=== PATIENT | male | born 1990 | race Caucasian/White ===

== ENCOUNTER 2017-08-17 19:43 | Inpatient (IN) | payer SELFPAY ==
[2017-08-17 21:05] VITALS: BMI 26.4
[2017-08-17] MEDS ORDERED: MELATONIN 5 MG TABLETS PO SCH (22:00)
--- NOTE | 2017-08-17 23:43 | HP ---
COWS - Scale Resting Pulse: 0= [place] 80 or Below Sweatin= Chills/Flushing Restless Observation: 5= Unable to Sit Still Pupil Size: 1= Pupils >than Normal Bone or Joint Aches: 4=Acute Joint/Muscle Pain Runny Nose/ Eye Tearin= Nasal Congestion GI Upset > 30mins: 2= Nausea/Diarrhea Tremor Observation: 1= Tremor [place], Not Seen Yawning Observation: 0= None Anxiety or Irritability: 2=Irritable/Anxious Goose Flesh Skin: 0=Smooth Skin COWS Score: 17 CIWA Score - CIWA Score Nausea/Vomitin-No Nausea/No Vomiting Muscle Tremors: 1-None Visible, but [place] Anxiety: 4-Mod. Anxious/Guarded Agitation: 4-Moderately Restless Paroxysmal Sweats: 3 (CHILLS) Orientation: 1-Uncertain about Date Tacttile Disturbances: 0-None Auditory Disturbances: 0-None Visual Disturbances: 0-None Headache: 3-Moderate CIWA-Ar Total Score: 16 Admission ROS S - HPI Chief Complaint: " I NEED TO STOP USING AND TO GET BETTER" Allergies/Adverse Reactions: Allergies Allergy/AdvReac Type Severity Reaction Status Date / Time No Known Allergies Allergy Verified 08/17/17 22:54 History of Present Illness: 27 Y.O. MALE WITH HX/O ALCOHOLISM AND HEROIN HERE FOR DETOX. CLIENT REPORTS THIS IS HIS FIRST TIME IN [facility]. REFERRED BY A FRIEND. DENIES ANY SIGNIFICANT PERIOD OF CLEAN TIME. Exam Limitations: No Limitations - Ebola screening Have you traveled outside of the country in the last 21 days: No (N) Have you had contact with anyone from an Ebola affected area: No Have you been sick,other than usual withdrawal symptoms: No Do you have a fever: No - Review of Systems Constitutional: Chills, Loss of Appetite, Malaise, Night Sweats, Changes in sleep EENT: reports: Nose Congestion Respiratory: reports: No Symptoms reported Cardiac: reports: No Symptoms Reported GI: reports: Diarrhea, Poor Appetite, Poor Fluid Intake, Abdominal cramping : reports: No Symptoms Reported Musculoskeletal: reports: Back Pain Integumentary: reports: No Symptoms Reported Neuro: reports: No Symptoms reported Endocrine: reports: No Symptoms Reported Hematology: reports: No Symptoms Reported Psychiatric: reports: Anxious, Depressed Other Systems: Reviewed and Negative Patient History - Patient Medical History Hx Anemia: No Hx Asthma: No Hx Chronic Obstructive Pulmonary Disease (COPD): No Hx Cancer: No Hx Cardiac Disorders: No Hx Congestive Heart Failure: No Hx Hypertension: No Hx Hypercholesterolemia: No Hx Pacemaker: No HX Cerebrovascular Accident: No Hx Seizures: No Hx Dementia: No Hx Diabetes: No Hx Gastrointestinal Disorders: No Hx Liver Disease: No Hx Genitourinary Disorders: No Hx Sexually Transmitted Disorders: No Hx Renal Disease (ESRD): No Hx Thyroid Disease: No Hx Human Immunodeficiency Virus (HIV): No (Last tested approx. 2 months ago: NEGATIVE.) Hx Hepatitis C: No (Last tested approx. 2 months ago: NEGATIVE.) Hx Depression: No Hx Suicide Attempt: No (PATIENT DENIES CURRENT SI / HI.) Hx Bipolar Disorder: No Hx Schizophrenia: No Other Medical History: ANXIETY DECLINES PSYCH EVAL - Patient Surgical History Past Surgical History: No Hx Neurologic Surgery: No Hx Cataract Extraction: No Hx Cardiac Surgery: No Hx Lung Surgery: No Hx Breast Surgery: No Hx Breast Biopsy: No Hx Abdominal Surgery: No Hx Appendectomy: No Hx Cholecystectomy: No Hx Genitourinary Surgery: No Hx Orthopedic Surgery: No Anesthesia Reaction: No - PPD History Previous Implant?: Yes Documented Results: Negative w/o proof Implanted On Prior [facility] Admission?: No PPD to be Administered?: Yes - Smoking Cessation Smoking history: Current every day smoker Have you smoked in the past 12 months: Yes Aproximately how many cigarettes per day: 20 Cigars Per Day: 0 Hx Chewing Tobacco Use: No Initiated information on smoking cessation: Yes 'Breaking Loose' booklet given: 08/17/17 - Substance & Tx. History Hx Alcohol Use: Yes Hx Substance Use: Yes Substance Use Type: Alcohol, Heroin Hx Substance Use Treatment: No - Substances Abused Heroin Route: Inhalation Frequency: Daily Amount used: 10 BAGS Age of first use: 26 Date of Last Use: 08/17/17 Alcohol Route: Oral Frequency: Daily Amount used: BEER 1 OF 6 PACK Age of first use: 18 Date of Last Use: 08/15/17 Marijuana/Hashish Route: Smoking Frequency: Daily Amount used: 2 GRAMS Age of first use: 18 Date of Last Use: 08/17/17 Family Disease History - Family Disease History Family Disease History: Diabetes: Grandparent, Sister Admission Physical Exam BHS - Vital Signs Vital Signs: Vital Signs - 24 hr 08/17/17 21:03 Temperature 98.7 F Pulse Rate 75 Respiratory 19 Rate Blood Pressure 129/72 - Physical General Appearance: Yes: Mild Distress, Tremorous, Anxious HEENTM: Yes: EOMI, Normocephalic, GERALD, Pharynx Normal, Nasal Congestion Respiratory: Yes: Chest Non-Tender, Lungs Clear, Normal Breath Sounds, No Respiratory Distress, No Accessory Muscle Use Neck: Yes: No masses,lesions,Nodules, Supple, Trachea in good position Breast: Yes: Breast Exam Deferred Cardiology: Yes: Regular Rhythm, Regular Rate, S1, S2 Abdominal: Yes: Normal Bowel Sounds, Non Tender, Flat, Soft Genitourinary: Yes: Within Normal Limits Back: Yes: Normal Inspection Musculoskeletal: Yes: Gait Steady Extremities: Yes: Normal Range of Motion, Non-Tender, Tremors 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: Yes: Alert, Motor Strength 5/5 Integumentary: Yes: Normal Color, Dry, Warm Lymphatic: Yes: Within Normal Limits - Diagnostic (1) Alcohol dependence with uncomplicated withdrawal Current Visit: Yes Status: Acute (2) Opioid dependence with withdrawal Current Visit: Yes Status: Acute (3) Nicotine dependence Current Visit: Yes Status: Chronic Qualifiers: Nicotine product type: cigarettes Substance use status: uncomplicated Qualified Code(s): F17.210 - Nicotine dependence, cigarettes, uncomplicated Cleared for Admission [facility] - Detox or Rehab [facility] Level of Care: Medically Managed Detox Regimen/Protocol: Methadone/Librium [facility] Breath Alcohol Content Breath Alcohol Content: 0 Urine Drug Screen - Results Drug Screen Negative: No Urine Drug Screen Results: THC-Marijuana, OPI-Opiates
[2017-08-17] MEDS ORDERED: MAGNESIUM HYDROX 2400MG/30ML ORAL SUSPENSION 30 ML CUP PO PRN (23:54)
[2017-08-17] MEDS ORDERED: P-EPHED 60MG/TRIPROLIDI 2.5MG TABLET PO PRN (23:54)
[2017-08-17] MEDS ORDERED: MAGNESIUM CITRATE 300 ML BOTTLE PO PRN (23:54)
[2017-08-17] MEDS ORDERED: MENTHOL/PHENOL 1 EACH UD MM PRN (23:54)
[2017-08-17] MEDS ORDERED: MAG HYDROX/AL HYDROX/SIMETH 30 ML UNIT-DOSE CUP PO PRN (23:54)
[2017-08-17] MEDS ORDERED: guaiFENesin/D-METHORPHAN HB 10 ML UNIT-DOSE CUPS PO PRN (23:54)
[2017-08-17] MEDS ORDERED: LOPERAMIDE HCL 2 MG CAPSULE PO PRN (23:54)
[2017-08-17] MEDS ORDERED: NICOTINE POLACRILEX 2 MG GUM BC PRN (23:54)
[2017-08-17] MEDS ORDERED: IBUPROFEN 400 MG TABLET (FP) PO PRN (23:54)
[2017-08-18] MEDS ORDERED: MELATONIN 5 MG TABLETS PO PRN (00:06)
[2017-08-18] MEDS ORDERED: METHADONE HCL 10 MG TABLET (FOR DETOX USE ONLY) PO ONE ×3 (00:07→22:00)
[2017-08-18 00:44] LABS: URINE APPEARANCE CLEAR; URINE BILIRUBIN NEGATIVE (<2.0 mg/dL); URINE BLOOD NEGATIVE (NEGATIVE); URINE COLOR YELLOW; URINE GLUCOSE (UA) NEGATIVE (NEGATIVE); URINE KETONE NEGATIVE (NEGATIVE); URINE LEUK ESTERASE NEGATIVE (NEGATIVE); URINE NITRITE NEGATIVE (NEGATIVE); URINE PROTEIN NEGATIVE (NEGATIVE)
[2017-08-18] MEDS: chlordiazePOXIDE HCL 25 MG CAPSULE PO PRN ×2 (01:01→20:28)
[2017-08-18] MEDS: chlordiazePOXIDE HCL 25 MG CAPSULE PO SCH ×4 (05:17→23:30)
--- NOTE | 2017-08-18 09:06 | EKG ---
Test Reason : Blood Pressure : / mmHG Vent. Rate : 074 BPM Atrial Rate : 074 BPM P-R Int : 176 ms QRS Dur : 094 ms QT Int : 394 ms P-R-T Axes : 067 069 028 degrees QTc Int : 437 ms NORMAL SINUS RHYTHM NORMAL ECG NO PREVIOUS ECGS AVAILABLE Confirmed by NABIL CARROLL MD ([id number]) on 08/18/2017 9:05:52 AM Referred By: Confirmed By:NABIL CARROLL MD
[2017-08-18 10:18] LABS: HEMATOCRIT 42.6 % (35.4-49); HEMOGLOBIN 14.5 GM/dL (11.7-16.9); MCH 29.9 pg (25.7-33.7); MEAN CELL VOLUME 87.8 fl (80-96); MEAN PLT VOLUME 10.7 fl (7.5-11.1); PLATELET COUNT 186 K/MM3 (134-434); RBC 4.85 M/mm3 (4.00-5.60); RDW 13.6 % (11.9-15.9); WHITE BLOOD COUNT 8.7 K/mm3 (4.0-10.0)
[2017-08-18 10:34] LABS: ALBUMIN 3.7 g/dl (3.4-5.0); ALK PHOS 68 U/L (45-117); ANION GAP 10 (8-16); BILIRUBIN,TOTAL 0.6 mg/dL (0.2-1.0); BLOOD UREA NITROGEN 14 mg/dL (7-18); CALCIUM 8.9 mg/dL (8.5-10.1); CHLORIDE 103 mmol/L (98-107); CO2 28 mmol/L (21-32); CREATININE 0.8 mg/dL (0.7-1.3); GLUCOSE,RANDOM 80 mg/dL (74-106); POTASSIUM 4.1 mmol/L (3.5-5.1); SGOT/AST 12 U/L (15-37); SGPT/ALT 22 U/L (12-78); SODIUM 141 mmol/L (136-145); TOT PROT 7.1 g/dl (6.4-8.2)
--- NOTE | 2017-08-18 10:40 | PN ---
S CIWA - CIWA Score Nausea/Vomitin Muscle Tremors: 3 Anxiety: 3 Agitation: 3 Paroxysmal Sweats: 1-Minimal Palms Moist Orientation: 0-Oriented Tacttile Disturbances: 1-Very Mild Itch/Numbness Auditory Disturbances: 1-Very Mild Visual Disturbances: 0-None Headache: 2-Mild CIWA-Ar Total Score: 17 BHS COWS - Scale Resting Pulse: 1= [place] 81-100 Sweatin= Chills/Flushing Restless Observation: 3= Extraneous Movement Pupil Size: 1= Pupils >than Normal Bone or Joint Aches: 2= Severe Diffuse Aches Runny Nose/ Eye Tearin= Nasal Congestion GI Upset > 30mins: 2= Nausea/Diarrhea Tremor Observation of Outstretched Hands: 2= Slight Tremor Visible Yawning Observation: 1= 1-2x During Session Anxiety or Irritability: 2=Irritable/Anxious Goose Flesh Skin: 0=Smooth Skin COWS Score: 16 BHS Progress Note (SOAP) Subjective: ALERT,IRRITABLE.ANXIOUS,INTERRUPTED SLEEP,TREMOR Objective: 08/18/17 10:38 Vital Signs Temperature 98.1 F 08/18/17 09:45 Pulse Rate 92 H 08/18/17 09:45 Respiratory Rate 16 08/18/17 09:45 Blood Pressure 116/72 08/18/17 09:45 O2 Sat by Pulse Oximetry (%) EKG NSR,NORMAL ECG 08/18/17 10:39 Laboratory Last Values WBC 8.7 K/mm3 (4.0-10.0) 08/18/17 07:00 RBC 4.85 M/mm3 (4.00-5.60) 08/18/17 07:00 Hgb 14.5 GM/dL (11.7-16.9) 08/18/17 07:00 Hct 42.6 % (35.4-49) 08/18/17 07:00 MCV 87.8 fl (80-96) 08/18/17 07:00 MCH 29.9 pg (25.7-33.7) 08/18/17 07:00 MCHC 34.0 g/dl (32.0-35.9) 08/18/17 07:00 RDW 13.6 % (11.9-15.9) 08/18/17 07:00 Plt Count 186 K/MM3 (134-434) 08/18/17 07:00 MPV 10.7 fl (7.5-11.1) 08/18/17 07:00 Sodium 141 mmol/L (136-145) 08/18/17 07:00 Potassium 4.1 mmol/L (3.5-5.1) 08/18/17 07:00 Chloride 103 mmol/L (98-107) 08/18/17 07:00 Carbon Dioxide 28 mmol/L (21-32) 08/18/17 07:00 Anion Gap 10 (8-16) 08/18/17 07:00 BUN 14 mg/dL (7-18) D 08/18/17 07:00 Creatinine 0.8 mg/dL (0.7-1.3) 08/18/17 07:00 Creat Clearance w eGFR > 60 (>60) 08/18/17 07:00 Random Glucose 80 mg/dL (74-106) 08/18/17 07:00 Calcium 8.9 mg/dL (8.5-10.1) 08/18/17 07:00 Total Bilirubin 0.6 mg/dL (0.2-1.0) D 08/18/17 07:00 AST 12 U/L (15-37) L 08/18/17 07:00 ALT 22 U/L (12-78) 08/18/17 07:00 Total Protein 7.1 g/dl (6.4-8.2) 08/18/17 07:00 Albumin 3.7 g/dl (3.4-5.0) 08/18/17 07:00 Urine Color Yellow 08/17/17 23:50 Urine Appearance Clear 08/17/17 23:50 Urine pH 5.0 (5.0-8.0) D 08/17/17 23:50 Ur Specific [place] 1.025 (1.001-1.035) 08/17/17 23:50 Urine Protein Negative (NEGATIVE) 08/17/17 23:50 Urine Glucose (UA) Negative (NEGATIVE) 08/17/17 23:50 Urine Ketones Negative (NEGATIVE) 08/17/17 23:50 Urine Blood Negative (NEGATIVE) 08/17/17 23:50 Urine Nitrite Negative (NEGATIVE) 08/17/17 23:50 Urine Bilirubin Negative (<2.0 mg/dL) 08/17/17 23:50 Urine Urobilinogen 2.0 mg/dL (0.2-1.0) 08/17/17 23:50 Ur Leukocyte Esterase Negative (NEGATIVE) 08/17/17 23:50 08/18/17 10:39 RPR HIV PENDING Assessment: 08/18/17 10:39 WITHDRAWAL SYMPTOM Plan: CONTINUE DETOX
[2017-08-18] MEDS: PRENATAL VITAMINS W/ FOLIC ACID TABLET (FP) PO SCH (10:41)
[2017-08-18] MEDS: NICOTINE 14 MG/24 HOURS TOPICAL PATCH TD SCH (10:42)
[2017-08-18] MEDS ORDERED: PROPOFOL 20 ML ONE (11:04)
[2017-08-18] MEDS ORDERED: DEXAMETHASONE SOD PHOSPHATE 4 MG/1 ML VIAL ONE (11:05)
[2017-08-18] MEDS ORDERED: MIDAZOLAM HCL 2 MG/2 ML SINGLE DOSE VIAL ONE (11:05)
[2017-08-18] MEDS ORDERED: TRIMETHOBENZAMIDE HCL 200MG/2ML INJ IM PRN (11:25)
[2017-08-18] MEDS ORDERED: ONDANSETRON *ODT* 4 MG TABLET SL PRN (12:28)
[2017-08-18] MEDS: ACETAMINOPHEN 325 MG TABLET (FP) PO PRN (22:36)
[2017-08-18] MEDS: THIAMINE HCL 100 MG TABLET (FP) PO SCH (22:55)
[2017-08-19] MEDS: chlordiazePOXIDE HCL 25 MG CAPSULE PO SCH ×4 (05:23→22:33)
[2017-08-19] MEDS ORDERED: METHADONE HCL 5 MG TABLET (FOR DETOX USE ONLY) PO SCH (10:00)
[2017-08-19] MEDS: cloNIDine HCL 0.1 MG TABLET PO SCH ×2 (10:30→22:34)
[2017-08-19] MEDS: PRENATAL VITAMINS W/ FOLIC ACID TABLET (FP) PO SCH (10:30)
[2017-08-19] MEDS: CYCLOBENZAPRINE HCL 10 MG TABLET (FP) PO PRN (10:30)
[2017-08-19] MEDS: NICOTINE 14 MG/24 HOURS TOPICAL PATCH TD SCH (10:31)
--- NOTE | 2017-08-19 11:23 | PN ---
S CIWA - CIWA Score Nausea/Vomitin Muscle Tremors: 3 Anxiety: 3 Agitation: 3 Paroxysmal Sweats: 1-Minimal Palms Moist Orientation: 0-Oriented Tacttile Disturbances: 1-Very Mild Itch/Numbness Auditory Disturbances: 1-Very Mild Visual Disturbances: 0-None Headache: 2-Mild CIWA-Ar Total Score: 17 BHS Progress Note (SOAP) Subjective: ALERT,IRRITABLE,ANXIOUS,INTERRUPTED SLEEP,TREMOR,PAIN IN THE BODY AND BACK Objective: 08/19/17 11:21 Vital Signs Temperature 98.1 F 08/19/17 09:58 Pulse Rate 92 H 08/19/17 09:58 Respiratory Rate 18 08/19/17 09:58 Blood Pressure 135/89 08/19/17 09:58 O2 Sat by Pulse Oximetry (%) EKG NSR,NORMAL ECG, Laboratory Last Values WBC 8.7 K/mm3 (4.0-10.0) 08/18/17 07:00 RBC 4.85 M/mm3 (4.00-5.60) 08/18/17 07:00 Hgb 14.5 GM/dL (11.7-16.9) 08/18/17 07:00 Hct 42.6 % (35.4-49) 08/18/17 07:00 MCV 87.8 fl (80-96) 08/18/17 07:00 MCH 29.9 pg (25.7-33.7) 08/18/17 07:00 MCHC 34.0 g/dl (32.0-35.9) 08/18/17 07:00 RDW 13.6 % (11.9-15.9) 08/18/17 07:00 Plt Count 186 K/MM3 (134-434) 08/18/17 07:00 MPV 10.7 fl (7.5-11.1) 08/18/17 07:00 Sodium 141 mmol/L (136-145) 08/18/17 07:00 Potassium 4.1 mmol/L (3.5-5.1) 08/18/17 07:00 Chloride 103 mmol/L (98-107) 08/18/17 07:00 Carbon Dioxide 28 mmol/L (21-32) 08/18/17 07:00 Anion Gap 10 (8-16) 08/18/17 07:00 BUN 14 mg/dL (7-18) D 08/18/17 07:00 Creatinine 0.8 mg/dL (0.7-1.3) 08/18/17 07:00 Creat Clearance w eGFR > 60 (>60) 08/18/17 07:00 Random Glucose 80 mg/dL (74-106) 08/18/17 07:00 Calcium 8.9 mg/dL (8.5-10.1) 08/18/17 07:00 Total Bilirubin 0.6 mg/dL (0.2-1.0) D 08/18/17 07:00 AST 12 U/L (15-37) L 08/18/17 07:00 ALT 22 U/L (12-78) 08/18/17 07:00 Alkaline Phosphatase 68 U/L (45-117) 08/18/17 07:00 Total Protein 7.1 g/dl (6.4-8.2) 08/18/17 07:00 Albumin 3.7 g/dl (3.4-5.0) 08/18/17 07:00 Urine Color Yellow 08/17/17 23:50 Urine Appearance Clear 08/17/17 23:50 Urine pH 5.0 (5.0-8.0) D 08/17/17 23:50 Ur Specific [place] 1.025 (1.001-1.035) 08/17/17 23:50 Urine Protein Negative (NEGATIVE) 08/17/17 23:50 Urine Glucose (UA) Negative (NEGATIVE) 08/17/17 23:50 Urine Ketones Negative (NEGATIVE) 08/17/17 23:50 Urine Blood Negative (NEGATIVE) 08/17/17 23:50 Urine Nitrite Negative (NEGATIVE) 08/17/17 23:50 Urine Bilirubin Negative (<2.0 mg/dL) 08/17/17 23:50 Urine Urobilinogen 2.0 mg/dL (0.2-1.0) 08/17/17 23:50 Ur Leukocyte Esterase Negative (NEGATIVE) 08/17/17 23:50 RPR Titer Nonreactive (NONREACTIVE) 08/18/17 07:00 HIV 1&2 Antibody Screen Negative 08/18/17 07:00 HIV P24 Antigen Negative 08/18/17 07:00 Assessment: 08/19/17 11:22 WITHDRAWAL SYMPTOM Plan: CONTINUE DETOX,ENSURE PLUS 120 MLS PO BID AND GINGERALE TID WITH EACH MEAL
--- NOTE | 2017-08-19 14:03 | CONSULT ---
[facility] Psychiatric Consult - Data Date of interview: 08/19/17 Admission source: [facility] Identifying data: Pt. is a 27 year old single male, Father of two, unemployed, and currently living with mother. This is one of multiple admissions for patient. Pt. admitted to for alcohol, cannabis and heroin. Substance Abuse History: Following information confirmed with Mr. Keys: - Smoking Cessation. Smoking history: Current every day smoker. Have you smoked in the past 12 months: Yes. Aproximately how many cigarettes per day: 20. Cigars Per Day: 0. Hx Chewing Tobacco Use: No. Initiated information on smoking cessation: Yes. - Substance & Tx. History. Hx Alcohol Use: Yes. Hx Substance Use: Yes. Substance Use Type: Alcohol, Heroin. Hx Substance Use Treatment: No. - Substances Abused. Heroin. Route: Inhalation. Frequency : Daily. Amount used: 10 BAGS. Age of first use: 26. Date of Last Use: . Alcohol. Route: Oral. Frequency: Daily. Amount used: BEER 1 OF 6 PACK. Age of first use: 18. Date of Last Use: 08/15/17. Marijuana/ Hashish. Route: Smoking. Frequency: Daily. Amount used: 2 GRAMS. Age of first use: 18. Date of Last Use: 08/17/17 Psychiatric History: Pt. denies h/o psychiatric hospitalizations, suicide attempt, and outpatient care. Physical/Sexual Abuse/Trauma History: Denies. Mental Status Exam - Mental Status Exam Alert and Oriented to: Time, Place, Person Cognitive Function: Good Patient Appearance: Unkempt Mood: Euthymic Affect: Appropriate Patient Behavior: Fatigued (Pt. reports poor sleep.), Appropriate, Cooperative Speech Pattern: Appropriate Voice Loudness: Normal Thought Process: Goal Oriented Thought Disorder: Not Present Hallucinations: Denies Suicidal Ideation: Denies Homicidal Ideation: Denies Insight/Judgement: Poor Sleep: Poorly Appetite: Fair Muscle strength/Tone: Normal Gait/Station: Normal Psychiatric Findings - Problem List ([place] 1, 2,3) (1) Insomnia Current Visit: Yes Status: Acute (2) Alcohol dependence with uncomplicated withdrawal Current Visit: Yes Status: Acute (3) Cannabis dependence, uncomplicated Current Visit: Yes Status: Acute (4) Cocaine dependence, uncomplicated Current Visit: Yes Status: Acute (5) Nicotine dependence Current Visit: Yes Status: Chronic Qualifiers: Nicotine product type: cigarettes Substance use status: uncomplicated Qualified Code(s): F17.210 - Nicotine dependence, cigarettes, uncomplicated (6) Opioid dependence with withdrawal Current Visit: Yes Status: Acute - Initial Treatment Plan Initial Treatment Plan: Psychoeducation provided. Detoxification provided. Ambien 10mg qhs prn ordered for insomnia. Benefits and side effects discussed. Pt made aware of the risk of parasomnia. Verbal consent given. Will continue to monitor.
[2017-08-19] MEDS: chlordiazePOXIDE HCL 25 MG CAPSULE PO PRN (18:31)
[2017-08-19] MEDS: THIAMINE HCL 100 MG TABLET (FP) PO SCH (22:33)
[2017-08-19] MEDS: ZOLPIDEM TARTRATE 10 MG TABLET (PARK CARE ONLY) PO PRN (22:35)
[2017-08-20] MEDS: chlordiazePOXIDE 5 MG CAPSULE PO SCH ×4 (05:47→22:40)
[2017-08-20] MEDS ORDERED: METHADONE HCL 5 MG TABLET (FOR DETOX USE ONLY) PO SCH (10:00)
--- NOTE | 2017-08-20 10:18 | PN ---
BHS Progress Note (SOAP) Subjective: ALERT,IRRITABLE,ANXIOUS,INTERRUPTED SLEEP,PAIN IN THE BODY AND BACK Objective: 08/20/17 10:16 Vital Signs Temperature 97.5 F L 08/20/17 06:33 Pulse Rate 68 08/20/17 06:33 Respiratory Rate 16 08/20/17 06:33 Blood Pressure 113/68 08/20/17 06:33 O2 Sat by Pulse Oximetry (%) Assessment: 08/20/17 10:17 WITHDRAWAL SYMPTOM BUT LESS Plan: CONTINUE DETOX,MEDICATION ADJUST,
[2017-08-20] MEDS: PRENATAL VITAMINS W/ FOLIC ACID TABLET (FP) PO SCH (11:15)
[2017-08-20] MEDS: CYCLOBENZAPRINE HCL 10 MG TABLET (FP) PO PRN (11:15)
[2017-08-20] MEDS: NICOTINE 14 MG/24 HOURS TOPICAL PATCH TD SCH (11:18)
[2017-08-20] MEDS: cloNIDine HCL 0.1 MG TABLET PO SCH ×2 (11:19→22:40)
[2017-08-20 21:40] VITALS: TEMP 97.7
[2017-08-20] MEDS: ZOLPIDEM TARTRATE 10 MG TABLET (PARK CARE ONLY) PO PRN (22:38)
[2017-08-20] MEDS: THIAMINE HCL 100 MG TABLET (FP) PO SCH (22:38)
[2017-08-21] MEDS ORDERED: chlordiazePOXIDE HCL 10 MG CAPSULE PO SCH (05:00)
[2017-08-21] MEDS: ACETAMINOPHEN 325 MG TABLET (FP) PO PRN (08:46)
--- NOTE | 2017-08-21 09:05 | PN ---
BHS Progress Note (SOAP) Subjective: ALERT,INTERRUPTED SLEEP Objective: 08/21/17 09:04 Vital Signs Temperature 97.7 F 08/21/17 06:00 Pulse Rate 72 08/21/17 06:00 Respiratory Rate 18 08/21/17 06:00 Blood Pressure 105/59 08/21/17 06:00 O2 Sat by Pulse Oximetry (%) Assessment: 08/21/17 09:04 WITHDRAWAL SYMPTOM Plan: CONTINUE DETOX
--- NOTE | 2017-08-21 09:10 | DS ---
[facility] Detox Discharge Summary Admission Date: 08/17/17 Discharge Date: 08/21/17 - History Present History: Alcohol Dependence, Cannabis Dependence, Cocaine Dependence, Opioid Dependence Additional Comments: PATIENT DID NOT WANT TO COMPLETE TREATMENT,SIGNED RELEASE AMA,STATED HAS TO GO TO OF HIS AUNT,SEEN BY COUNSELOR,SIGNED RELEASE AMA,FOLLOW UP WITH AFTER CARE PROGRAM ARRANGEMENT Pertinent Past History: INSOMNIA - Physical Exam Results Vital Signs: Vital Signs Temperature 97.7 F 08/21/17 06:00 Pulse Rate 72 08/21/17 06:00 Respiratory Rate 18 08/21/17 06:00 Blood Pressure 105/59 08/21/17 06:00 O2 Sat by Pulse Oximetry (%) Pertinent Admission Physical Exam Findings: WITHDRAWAL SYMPTOM AND SIGNS Laboratory Last Values WBC 8.7 K/mm3 (4.0-10.0) 08/18/17 07:00 RBC 4.85 M/mm3 (4.00-5.60) 08/18/17 07:00 Hgb 14.5 GM/dL (11.7-16.9) 08/18/17 07:00 Hct 42.6 % (35.4-49) 08/18/17 07:00 MCV 87.8 fl (80-96) 08/18/17 07:00 MCH 29.9 pg (25.7-33.7) 08/18/17 07:00 MCHC 34.0 g/dl (32.0-35.9) 08/18/17 07:00 RDW 13.6 % (11.9-15.9) 08/18/17 07:00 Plt Count 186 K/MM3 (134-434) 08/18/17 07:00 MPV 10.7 fl (7.5-11.1) 08/18/17 07:00 Sodium 141 mmol/L (136-145) 08/18/17 07:00 Potassium 4.1 mmol/L (3.5-5.1) 08/18/17 07:00 Chloride 103 mmol/L (98-107) 08/18/17 07:00 Carbon Dioxide 28 mmol/L (21-32) 08/18/17 07:00 Anion Gap 10 (8-16) 08/18/17 07:00 BUN 14 mg/dL (7-18) D 08/18/17 07:00 Creatinine 0.8 mg/dL (0.7-1.3) 08/18/17 07:00 Creat Clearance w eGFR > 60 (>60) 08/18/17 07:00 Random Glucose 80 mg/dL (74-106) 08/18/17 07:00 Calcium 8.9 mg/dL (8.5-10.1) 08/18/17 07:00 Total Bilirubin 0.6 mg/dL (0.2-1.0) D 08/18/17 07:00 AST 12 U/L (15-37) L 08/18/17 07:00 ALT 22 U/L (12-78) 08/18/17 07:00 Alkaline Phosphatase 68 U/L (45-117) 08/18/17 07:00 Total Protein 7.1 g/dl (6.4-8.2) 08/18/17 07:00 Albumin 3.7 g/dl (3.4-5.0) 08/18/17 07:00 Urine Color Yellow 08/17/17 23:50 Urine Appearance Clear 08/17/17 23:50 Urine pH 5.0 (5.0-8.0) D 08/17/17 23:50 Ur Specific [place] 1.025 (1.001-1.035) 08/17/17 23:50 Urine Protein Negative (NEGATIVE) 08/17/17 23:50 Urine Glucose (UA) Negative (NEGATIVE) 08/17/17 23:50 Urine Ketones Negative (NEGATIVE) 08/17/17 23:50 Urine Blood Negative (NEGATIVE) 08/17/17 23:50 Urine Nitrite Negative (NEGATIVE) 08/17/17 23:50 Urine Bilirubin Negative (<2.0 mg/dL) 08/17/17 23:50 Urine Urobilinogen 2.0 mg/dL (0.2-1.0) 08/17/17 23:50 Ur Leukocyte Esterase Negative (NEGATIVE) 08/17/17 23:50 RPR Titer Nonreactive (NONREACTIVE) 08/18/17 07:00 HIV 1&2 Antibody Screen Negative 08/18/17 07:00 HIV P24 Antigen Negative 08/18/17 07:00 Vital Signs Temperature 97.7 F 08/21/17 06:00 Pulse Rate 72 08/21/17 06:00 Respiratory Rate 18 08/21/17 06:00 Blood Pressure 105/59 08/21/17 06:00 O2 Sat by Pulse Oximetry (%) - Treatment Patient has Accepted a Rehab Referral to: DECLINED - Medication Discharge Medications: Ambulatory Orders NK [No Known Home Medication] 03/20/17 - Diagnosis (1) Opioid dependence with withdrawal Current Visit: Yes Status: Acute (2) Alcohol dependence with uncomplicated withdrawal Current Visit: Yes Status: Acute (3) Cannabis dependence, uncomplicated Current Visit: Yes Status: Acute (4) Cocaine dependence, uncomplicated Current Visit: Yes Status: Acute (5) Nicotine dependence Current Visit: Yes Status: Chronic Qualifiers: Nicotine product type: cigarettes Substance use status: uncomplicated Qualified Code(s): F17.210 - Nicotine dependence, cigarettes, uncomplicated (6) Insomnia Current Visit: Yes Status: Acute - AMA Did Patient Leave Against Medical Advice: Yes
[2017-08-21] MEDS ORDERED: METHADONE HCL 10 MG TABLET (FOR DETOX USE ONLY) PO ONE (10:00)
[2017-08-21 11:05] VITALS: BP 103/69; PULSE 98
[2017-08-22] MEDS ORDERED: METHADONE HCL 5 MG TABLET (FOR DETOX USE ONLY) PO ONE (06:00)
[2017-08-22] MEDS ORDERED: METHADONE HCL 10 MG TABLET (FOR DETOX USE ONLY) PO SCH (10:00)
[2017-08-23] MEDS ORDERED: METHADONE HCL 10 MG TABLET (FOR DETOX USE ONLY) PO SCH (06:00)
== END 2017-08-21 09:24 | disposition left against medical advice (07) | DRG 770 ==
LOC: YASAS 19:43 → Y6N 23:21
PROVIDERS: ADMIT Internal Medicine; ATTEND Internal Medicine
PROC: HZ2ZZZZ Detoxification Services for Substance Abuse Treatment (ICD-10-PCS; principal; 2017-08-17)
DX: F11.23 Opioid dependence with withdrawal (principal); F10.230 Alcohol dependence with withdrawal, uncomplicated; F14.20 Cocaine dependence, uncomplicated; F12.20 Cannabis dependence, uncomplicated; F17.210 Nicotine dependence, cigarettes, uncomplicated; G47.00 Insomnia, unspecified
CPT/HCPCS: 36415; 80053; 81003; 85027; 86593; 87389; 93005; 93010; J0735; Q0162

== ENCOUNTER 2018-04-22 22:01 | Inpatient (IN) | payer OTHER ==
[~2018-04-22 22:01] MED LIST: MELATONIN 5 MG TABLETS PO PRN; METHADONE HCL 10 MG TABLET (FOR DETOX USE ONLY) PO ONE
[2018-04-22 22:27] VITALS: BMI 25.8
--- NOTE | 2018-04-22 23:39 | HP ---
COWS - Scale Resting Pulse: 1= [place] 81-100 Sweatin=Flushed/Facial Moisture Restless Observation: 1= Difficult to Sit Still Pupil Size: 0= Normal to Room Light Bone or Joint Aches: 4=Acute Joint/Muscle Pain Runny Nose/ Eye Tearin= Runny Nose/Eyes GI Upset > 30mins: 2= Nausea/Diarrhea (X 2) Tremor Observation: 4= Gross Tremor/Twitching Yawning Observation: 0= None Anxiety or Irritability: 2=Irritable/Anxious Goose Flesh Skin: 0=Smooth Skin COWS Score: 18 CIWA Score Nausea/Vomitin (VOMITING X 2) Muscle Tremors: 4-Moderate,w/Arms Extend Anxiety: 1-Mildly Anxious Agitation: 3 Paroxysmal Sweats: 1-Minimal Palms Moist Orientation: 0-Oriented Tacttile Disturbances: 0-None Auditory Disturbances: 3-Moderate Harsh/Frighten Visual Disturbances: 0-None Headache: 4-Moderately Severe CIWA-Ar Total Score: 19 - Admission Criteria OASAS Guidelines: Admission for Medically Managed Detox: Requires at least one of the followin. CIWA greater than 12 2. Seizures within the past 24 hours 3. Delirium tremens within the past 24 hours 4. Hallucinations within the past 24 hours 5. Acute intervention needed for co occurring medical disorder 6. Acute intervention needed for co occurring psychiatric disorder 7. Severe withdrawal that cannot be handled at a lower level of care (continued vomiting, continued diarrhea, abnormal vital signs) requiring intravenous medication and/or fluids 8. Admission ROS [facility] Allergies/Adverse Reactions: Allergies Allergy/AdvReac Type Severity Reaction Status Date / Time No Known Allergies Allergy Verified 04/23/18 02:53 History of Present Illness: 27 YEARS OLD MALE WITH EIGHT YEARS OF ALCOHOL AND HEROIN DEPENDENCE IS SEEKING ADMISSION TO DETOX. PATIENT HAS BEEN IN PREVIOUS DETOX AND REPORTS 2 YEARS PERIOD OF SOBRIETY. HE DENIES PAST MEDICAL HISTORY, SUICIDE ATTEMPT AND SUICIDAL IDEATION AT THIS TIME - Ebola screening Have you traveled outside of the country in the last 21 days: No (N) Have you had contact with anyone from an Ebola affected area: No Have you been sick,other than usual withdrawal symptoms: No Do you have a fever: No - Review of Systems Constitutional: Chills, Loss of Appetite, Night Sweats, Weakness EENT: reports: Cataracts, Nose Congestion Respiratory: reports: No Symptoms reported Cardiac: reports: No Symptoms Reported GI: reports: No Symptoms Reported : reports: No Symptoms Reported Musculoskeletal: reports: Back Pain, Muscle Pain Integumentary: reports: Dryness Neuro: reports: Tremors Hematology: reports: No Symptoms Reported Psychiatric: reports: No Sypmtoms Reported, Judgement Intact, Orientated x3 Other Systems: Reviewed and Negative Patient History - Patient Medical History Hx Anemia: No Hx Asthma: No Hx Chronic Obstructive Pulmonary Disease (COPD): No Hx Cancer: No Hx Cardiac Disorders: No Hx Congestive Heart Failure: No Hx Hypertension: No Hx Hypercholesterolemia: No Hx Pacemaker: No HX Cerebrovascular Accident: No Hx Seizures: No Hx Dementia: No Hx Diabetes: No Hx Gastrointestinal Disorders: No Hx Liver Disease: No Hx Genitourinary Disorders: No Hx Sexually Transmitted Disorders: No Hx Renal Disease (ESRD): No Hx Thyroid Disease: No Hx Human Immunodeficiency Virus (HIV): No (Last tested approx. 2 months ago: NEGATIVE.) Hx Hepatitis C: No (Last tested approx. 2 months ago: NEGATIVE.) Hx Depression: No Hx Suicide Attempt: No (PATIENT DENIES CURRENT SI / HI.) Hx Bipolar Disorder: No Hx Schizophrenia: No - Patient Surgical History Past Surgical History: No Hx Neurologic Surgery: No Hx Cataract Extraction: No Hx Cardiac Surgery: No Hx Lung Surgery: No Hx Breast Surgery: No Hx Breast Biopsy: No Hx Abdominal Surgery: No Hx Appendectomy: No Hx Cholecystectomy: No Hx Genitourinary Surgery: No Hx Orthopedic Surgery: No Anesthesia Reaction: No - PPD History Date: 08/20/17 - Smoking Cessation Smoking history: Current every day smoker Have you smoked in the past 12 months: Yes Aproximately how many cigarettes per day: 20 Cigars Per Day: 0 Hx Chewing Tobacco Use: No Initiated information on smoking cessation: Yes 'Breaking Loose' booklet given: 04/22/18 Family Disease History - Family Disease History Family Disease History: Diabetes: Grandparent, Sister Admission Physical Exam BHS - Vital Signs Vital Signs: Vital Signs - 24 hr 04/22/18 22:24 Temperature 96.9 F L Pulse Rate 96 H Respiratory 18 Rate Blood Pressure 133/83 - Physical General Appearance: Yes: Moderate Distress, Alcohol on Breath, Tremorous, Sweating, Anxious HEENTM: Yes: EOMI, Normal ENT Inspection, Normocephalic, Normal Voice, GERALD Respiratory: Yes: Lungs Clear, Normal Breath Sounds, No Respiratory Distress Neck: Yes: Supple Breast: Yes: Breast Exam Deferred Cardiology: Yes: Regular Rhythm, Regular Rate Abdominal: Yes: Normal Bowel Sounds Genitourinary: Yes: Within Normal Limits Back: Yes: CVA Tenderness (L) Musculoskeletal: Yes: Within Normal Limits Extremities: Yes: Tremors 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: Yes: Alert, Normal Mood/Affect Integumentary: Yes: Within Normal Limits Lymphatic: Yes: Within Normal Limits - Diagnostic (1) Alcohol dependence with uncomplicated withdrawal Current Visit: Yes Status: Acute (2) Nicotine dependence Current Visit: Yes Status: Chronic Qualifiers: Nicotine product type: cigarettes Substance use status: uncomplicated Qualified Code(s): F17.210 - Nicotine dependence, cigarettes, uncomplicated (3) Opioid dependence with withdrawal Current Visit: Yes Status: Acute (4) Cannabis dependence, uncomplicated Current Visit: Yes Status: Chronic Cleared for Admission [facility] - Detox or Rehab [facility] Level of Care: Medically Managed Detox Regimen/Protocol: Methadone/Librium S Breath Alcohol Content Breath Alcohol Content: 0 Urine Drug Screen - Results Drug Screen Negative: No Urine Drug Screen Results: THC-Marijuana, OPI-Opiates, FEN-Fentanyl
[2018-04-22] MEDS ORDERED: guaiFENesin/D-METHORPHAN HB 10 ML UNIT-DOSE CUPS PO PRN (23:44)
[2018-04-22] MEDS ORDERED: MAG HYDROX/AL HYDROX/SIMETH 30 ML UNIT-DOSE CUP PO PRN (23:44)
[2018-04-22] MEDS ORDERED: NICOTINE POLACRILEX 2 MG GUM BC PRN (23:44)
[2018-04-22] MEDS ORDERED: LOPERAMIDE HCL 2 MG CAPSULE PO PRN (23:44)
[2018-04-22] MEDS ORDERED: METHADONE HCL 10 MG TABLET (FOR DETOX USE ONLY) PO ONE (23:44)
[2018-04-22] MEDS ORDERED: P-EPHED 60MG/TRIPROLIDI 2.5MG TABLET PO PRN (23:44)
[2018-04-22] MEDS ORDERED: MAGNESIUM CITRATE 300 ML BOTTLE PO PRN (23:44)
[2018-04-22] MEDS ORDERED: ACETAMINOPHEN 325 MG TABLET (FP) PO PRN (23:44)
[2018-04-22] MEDS ORDERED: chlordiazePOXIDE HCL 25 MG CAPSULE PO ONE (23:44)
[2018-04-22] MEDS ORDERED: chlordiazePOXIDE HCL 25 MG CAPSULE PO PRN (23:44)
[2018-04-22] MEDS ORDERED: MENTHOL/PHENOL 1 EACH UD MM PRN (23:44)
[2018-04-22] MEDS ORDERED: MAGNESIUM HYDROX 2400MG/30ML ORAL SUSPENSION 30 ML CUP PO PRN (23:44)
[2018-04-22] MEDS ORDERED: IBUPROFEN 400 MG TABLET (FP) PO PRN (23:44)
--- NOTE | 2018-04-22 23:50 | HP ---
COWS - Scale Resting Pulse: 1= [place] 81-100 Sweatin=Flushed/Facial Moisture Restless Observation: 1= Difficult to Sit Still Pupil Size: 0= Normal to Room Light Bone or Joint Aches: 4=Acute Joint/Muscle Pain Runny Nose/ Eye Tearin= Runny Nose/Eyes GI Upset > 30mins: 2= Nausea/Diarrhea (X 2) Tremor Observation: 4= Gross Tremor/Twitching Yawning Observation: 0= None Anxiety or Irritability: 2=Irritable/Anxious Goose Flesh Skin: 0=Smooth Skin COWS Score: 18 CIWA Score Nausea/Vomitin (VOMITING X 2) Muscle Tremors: 4-Moderate,w/Arms Extend Anxiety: 1-Mildly Anxious Agitation: 3 Paroxysmal Sweats: 1-Minimal Palms Moist Orientation: 0-Oriented Tacttile Disturbances: 0-None Auditory Disturbances: 3-Moderate Harsh/Frighten Visual Disturbances: 0-None Headache: 4-Moderately Severe CIWA-Ar Total Score: 19 - Admission Criteria OASAS Guidelines: Admission for Medically Managed Detox: Requires at least one of the followin. CIWA greater than 12 2. Seizures within the past 24 hours 3. Delirium tremens within the past 24 hours 4. Hallucinations within the past 24 hours 5. Acute intervention needed for co occurring medical disorder 6. Acute intervention needed for co occurring psychiatric disorder 7. Severe withdrawal that cannot be handled at a lower level of care (continued vomiting, continued diarrhea, abnormal vital signs) requiring intravenous medication and/or fluids 8. Admission ROS [facility] Allergies/Adverse Reactions: Allergies Allergy/AdvReac Type Severity Reaction Status Date / Time No Known Allergies Allergy Verified 12/22/17 23:07 - Ebola screening Have you traveled outside of the country in the last 21 days: No (N) Have you had contact with anyone from an Ebola affected area: No Have you been sick,other than usual withdrawal symptoms: No Do you have a fever: No Patient History - Patient Medical History Hx Anemia: No Hx Asthma: No Hx Chronic Obstructive Pulmonary Disease (COPD): No Hx Cancer: No Hx Cardiac Disorders: No Hx Congestive Heart Failure: No Hx Hypertension: No Hx Hypercholesterolemia: No Hx Pacemaker: No HX Cerebrovascular Accident: No Hx Seizures: No Hx Dementia: No Hx Diabetes: No Hx Gastrointestinal Disorders: No Hx Liver Disease: No Hx Genitourinary Disorders: No Hx Sexually Transmitted Disorders: No Hx Renal Disease (ESRD): No Hx Thyroid Disease: No Hx Human Immunodeficiency Virus (HIV): No (Last tested approx. 2 months ago: NEGATIVE.) Hx Hepatitis C: No (Last tested approx. 2 months ago: NEGATIVE.) Hx Depression: No Hx Suicide Attempt: No (PATIENT DENIES CURRENT SI / HI.) Hx Bipolar Disorder: No Hx Schizophrenia: No - Patient Surgical History Past Surgical History: No Hx Neurologic Surgery: No Hx Cataract Extraction: No Hx Cardiac Surgery: No Hx Lung Surgery: No Hx Breast Surgery: No Hx Breast Biopsy: No Hx Abdominal Surgery: No Hx Appendectomy: No Hx Cholecystectomy: No Hx Genitourinary Surgery: No Hx Orthopedic Surgery: No Anesthesia Reaction: No - PPD History Date: 08/20/17 - Smoking Cessation Smoking history: Current every day smoker Have you smoked in the past 12 months: Yes Aproximately how many cigarettes per day: 20 Cigars Per Day: 0 Hx Chewing Tobacco Use: No Family Disease History - Family Disease History Family Disease History: Diabetes: Grandparent, Sister Admission Physical Exam BHS - Vital Signs Vital Signs: Vital Signs - 24 hr 04/22/18 22:24 Temperature 96.9 F L Pulse Rate 96 H Respiratory 18 Rate Blood Pressure 133/83 - Diagnostic (1) Alcohol dependence with uncomplicated withdrawal Current Visit: Yes Status: Chronic (2) Nicotine dependence Current Visit: Yes Status: Chronic Qualifiers: Nicotine product type: cigarettes Substance use status: uncomplicated Qualified Code(s): F17.210 - Nicotine dependence, cigarettes, uncomplicated (3) Opioid dependence with withdrawal Current Visit: Yes Status: Acute (4) Cannabis dependence, uncomplicated Current Visit: Yes Status: Chronic BHS Breath Alcohol Content Breath Alcohol Content: 0 Urine Drug Screen - Results Drug Screen Negative: No Urine Drug Screen Results: THC-Marijuana, OPI-Opiates, FEN-Fentanyl
[2018-04-23] MEDS ORDERED: chlordiazePOXIDE HCL 25 MG CAPSULE PO ONE (02:22)
[2018-04-23] MEDS ORDERED: chlordiazePOXIDE HCL 25 MG CAPSULE PO PRN (02:22)
[2018-04-23] MEDS ORDERED: METHADONE HCL 10 MG TABLET (FOR DETOX USE ONLY) PO ONE ×3 (02:22→22:00)
[2018-04-23] MEDS: chlordiazePOXIDE HCL 25 MG CAPSULE PO SCH ×6 (02:39→22:26)
[2018-04-23] MEDS ORDERED: chlordiazePOXIDE HCL 25 MG CAPSULE PO SCH (05:00)
[2018-04-23] MEDS ORDERED: METHADONE HCL 5 MG TABLET (FOR DETOX USE ONLY) PO SCH (10:00)
[2018-04-23] MEDS: PRENATAL VITAMINS W/ FOLIC ACID TABLET (FP) PO SCH (10:23)
[2018-04-23] MEDS: NICOTINE 14 MG/24 HOURS TOPICAL PATCH TD SCH (10:24)
[2018-04-23 10:40] LABS: HEMATOCRIT 40.9 % (35.4-49); HEMOGLOBIN 14.3 GM/dL (11.7-16.9); MCH 30.1 pg (25.7-33.7); MCHC 35.1 g/dl (32.0-35.9); MEAN CELL VOLUME 85.9 fl (80-96); MEAN PLT VOLUME 10.5 fl (7.5-11.1); PLATELET COUNT 178 K/MM3 (134-434); RBC 4.77 M/mm3 (4.00-5.60); RDW 13.8 % (11.9-15.9); WHITE BLOOD COUNT 8.2 K/mm3 (4.0-10.0)
[2018-04-23 11:25] LABS: ALBUMIN 3.5 g/dl (3.4-5.0); ALK PHOS 84 U/L (45-117); ANION GAP 9 MMOL/L (8-16); BILIRUBIN,TOTAL 0.4 mg/dL (0.2-1); BLOOD UREA NITROGEN 14 mg/dL (7-18); CALCIUM 8.9 mg/dL (8.5-10.1); CHLORIDE 106 mmol/L (98-107); CO2 25 mmol/L (21-32); CREATININE 0.8 mg/dL (0.55-1.3); GLUCOSE,RANDOM 77 mg/dL (74-106); POTASSIUM 3.9 mmol/L (3.5-5.1); SGOT/AST 15 U/L (15-37); SGPT/ALT 27 U/L (13-61); SODIUM 140 mmol/L (136-145)
--- NOTE | 2018-04-23 13:43 | PN ---
S CIWA - CIWA Score Nausea/Vomitin Muscle Tremors: 4-Moderate,w/Arms Extend Anxiety: 4-Mod. Anxious/Guarded Agitation: 2 Paroxysmal Sweats: 3 Orientation: 0-Oriented Tacttile Disturbances: 1-Very Mild Itch/Numbness Auditory Disturbances: 0-None Visual Disturbances: 0-None Headache: 1-Very Mild CIWA-Ar Total Score: 17 BHS COWS - Scale Resting Pulse: 1= [place] 81-100 Sweatin= Chills/Flushing Restless Observation: 3= Extraneous Movement Pupil Size: 0= Normal to Room Light Bone or Joint Aches: 2= Severe Diffuse Aches Runny Nose/ Eye Tearin= Runny Nose/Eyes GI Upset > 30mins: 3= Vomiting/Diarrhea Tremor Observation of Outstretched Hands: 2= Slight Tremor Visible Yawning Observation: 1= 1-2x During Session Anxiety or Irritability: 2=Irritable/Anxious Goose Flesh Skin: 0=Smooth Skin COWS Score: 17 S Progress Note (SOAP) Subjective: Sweating, tremor, anxious, interrupted sleep, feeling tired Objective: 04/23/18 13:40 Last Vital Signs Temp Pulse Resp BP Pulse Ox 98.4 F 83 16 88/54 L 04/23/18 13:31 04/23/18 13:31 04/23/18 13:31 04/23/18 13:31 Hypotension noted (b/p: 88/54) Laboratory Tests 04/23/18 04/23/18 04/23/18 07:00 07:00 07:00 WBC 8.2 RBC 4.77 Hgb 14.3 Hct 40.9 MCV 85.9 MCH 30.1 MCHC 35.1 RDW 13.8 Plt Count 178 D MPV 10.5 Sodium 140 Potassium 3.9 Chloride 106 Carbon Dioxide 25 Anion Gap 9 BUN 14 Creatinine 0.8 Creat Clearance w eGFR > 60 Random Glucose 77 Calcium 8.9 Total Bilirubin 0.4 AST 15 ALT 27 Alkaline Phosphatase 84 Total Protein 7.0 Albumin 3.5 RPR Titer Nonreactive Labs reviewed Assessment: 04/23/18 13:40 Withdrawal symptoms Plan: Continue detox Encouraged PO water intake Follow up on UA result (pending)
[2018-04-23 16:50] LABS: URINE APPEARANCE CLEAR; URINE BILIRUBIN NEGATIVE (<2.0 mg/dL); URINE COLOR YELLOW; URINE GLUCOSE (UA) NEGATIVE (NEGATIVE); URINE KETONE NEGATIVE (NEGATIVE); URINE LEUK ESTERASE NEGATIVE (NEGATIVE); URINE NITRITE NEGATIVE (NEGATIVE); URINE PROTEIN NEGATIVE (NEGATIVE); URINE UROBILINOGEN NEGATIVE mg/dL (0.2-1.0)
[2018-04-23] MEDS: THIAMINE HCL 100 MG TABLET (FP) PO SCH (22:26)
[2018-04-24] MEDS ORDERED: chlordiazePOXIDE 5 MG CAPSULE PO SCH (05:00)
[2018-04-24] MEDS: chlordiazePOXIDE HCL 25 MG CAPSULE PO SCH ×4 (05:46→22:11)
[2018-04-24] MEDS ORDERED: METHADONE HCL 5 MG TABLET (FOR DETOX USE ONLY) PO SCH ×2 (10:00)
[2018-04-24] MEDS ORDERED: ONDANSETRON *ODT* 4 MG TABLET SL PRN (10:04)
[2018-04-24] MEDS: PRENATAL VITAMINS W/ FOLIC ACID TABLET (FP) PO SCH (10:34)
[2018-04-24] MEDS: NICOTINE 14 MG/24 HOURS TOPICAL PATCH TD SCH (10:35)
--- NOTE | 2018-04-24 15:16 | PN ---
[facility] CIWA - CIWA Score Nausea/Vomitin Muscle Tremors: 3 Anxiety: 3 Agitation: 3 Paroxysmal Sweats: 3 Orientation: 0-Oriented Tacttile Disturbances: 0-None Auditory Disturbances: 0-None Visual Disturbances: 0-None Headache: 0-None Present CIWA-Ar Total Score: 14 BHS COWS - Scale Resting Pulse: 2= [place] 101-120 Sweatin= Chills/Flushing Restless Observation: 3= Extraneous Movement Pupil Size: 0= Normal to Room Light Bone or Joint Aches: 1= Mild Discomfort Runny Nose/ Eye Tearin= Runny Nose/Eyes GI Upset > 30mins: 2= Nausea/Diarrhea Tremor Observation of Outstretched Hands: 2= Slight Tremor Visible Yawning Observation: 0= None Anxiety or Irritability: 1=Feels Anxious/Irritable Goose Flesh Skin: 0=Smooth Skin COWS Score: 14 [facility] Progress Note (SOAP) Subjective: Chills, sweating, stomach ache, runny nose, interrupted sleep, nausea Objective: 04/24/18 15:15 Last Vital Signs Temp Pulse Resp BP Pulse Ox 97.2 F L 114 H 16 105/76 04/24/18 10:18 04/24/18 10:18 04/24/18 10:18 04/24/18 10:18 tachycardia due to withdrawal Laboratory Tests 04/23/18 04/23/18 04/23/18 07:00 07:00 07:00 WBC 8.2 RBC 4.77 Hgb 14.3 Hct 40.9 MCV 85.9 MCH 30.1 MCHC 35.1 RDW 13.8 Plt Count 178 D MPV 10.5 Sodium 140 Potassium 3.9 Chloride 106 Carbon Dioxide 25 Anion Gap 9 BUN 14 Creatinine 0.8 Creat Clearance w eGFR > 60 Random Glucose 77 Calcium 8.9 Total Bilirubin 0.4 AST 15 ALT 27 Alkaline Phosphatase 84 Total Protein 7.0 Albumin 3.5 Urine Color Urine Appearance Urine pH Ur Specific [place] Urine Protein Urine Glucose (UA) Urine Ketones Urine Blood Urine Nitrite Urine Bilirubin Urine Urobilinogen Ur Leukocyte Esterase RPR Titer Nonreactive HIV 1&2 Antibody Screen HIV P24 Antigen 04/23/18 04/24/18 13:00 08:00 WBC RBC Hgb Hct MCV MCH MCHC RDW Plt Count MPV Sodium Potassium Chloride Carbon Dioxide Anion Gap BUN Creatinine Creat Clearance w eGFR Random Glucose Calcium Total Bilirubin AST ALT Alkaline Phosphatase Total Protein Albumin Urine Color Yellow Urine Appearance Clear Urine pH 5.0 Ur Specific [place] 1.028 Urine Protein Negative Urine Glucose (UA) Negative Urine Ketones Negative Urine Blood Negative Urine Nitrite Negative Urine Bilirubin Negative Urine Urobilinogen Negative Ur Leukocyte Esterase Negative RPR Titer HIV 1&2 Antibody Screen Negative HIV P24 Antigen Negative Labs reviewed Assessment: 04/24/18 15:15 Withdrawal symptoms Plan: Continue detox Encouraged PO water intake
[2018-04-24] MEDS: THIAMINE HCL 100 MG TABLET (FP) PO SCH (22:11)
[2018-04-25] MEDS ORDERED: chlordiazePOXIDE 5 MG CAPSULE PO SCH (05:00)
[2018-04-25] MEDS ORDERED: chlordiazePOXIDE HCL 10 MG CAPSULE PO SCH (05:00)
[2018-04-25] MEDS ORDERED: METHADONE HCL 5 MG TABLET (FOR DETOX USE ONLY) PO SCH (10:00)
[2018-04-25 10:01] VITALS: BP 122/84; PULSE 74; TEMP 97.5
[2018-04-25] MEDS: NICOTINE 14 MG/24 HOURS TOPICAL PATCH TD SCH (10:02)
[2018-04-25] MEDS: PRENATAL VITAMINS W/ FOLIC ACID TABLET (FP) PO SCH (10:02)
--- NOTE | 2018-04-25 14:47 | DS ---
[facility] Detox Discharge Summary Admission Date: 04/23/18 Discharge Date: 04/25/18 - History Present History: Alcohol Dependence, Cannabis Dependence, Cocaine Dependence, Opioid Dependence Pertinent Past History: PLEASE SEE DX BELOW - Physical Exam Results Vital Signs: Vital Signs Temperature 97.5 F L 04/25/18 09:56 Pulse Rate 74 04/25/18 09:56 Respiratory Rate 18 04/25/18 09:56 Blood Pressure 122/84 04/25/18 09:56 O2 Sat by Pulse Oximetry (%) Pertinent Admission Physical Exam Findings: WITHDRAWAL SX Laboratory Tests 04/23/18 04/23/18 04/23/18 07:00 07:00 07:00 WBC 8.2 RBC 4.77 Hgb 14.3 Hct 40.9 MCV 85.9 MCH 30.1 MCHC 35.1 RDW 13.8 Plt Count 178 D MPV 10.5 Sodium 140 Potassium 3.9 Chloride 106 Carbon Dioxide 25 Anion Gap 9 BUN 14 Creatinine 0.8 Creat Clearance w eGFR > 60 Random Glucose 77 Calcium 8.9 Total Bilirubin 0.4 AST 15 ALT 27 Alkaline Phosphatase 84 Total Protein 7.0 Albumin 3.5 Urine Color Urine Appearance Urine pH Ur Specific [place] Urine Protein Urine Glucose (UA) Urine Ketones Urine Blood Urine Nitrite Urine Bilirubin Urine Urobilinogen Ur Leukocyte Esterase RPR Titer Nonreactive HIV 1&2 Antibody Screen HIV P24 Antigen 04/23/18 04/24/18 13:00 08:00 WBC RBC Hgb Hct MCV MCH MCHC RDW Plt Count MPV Sodium Potassium Chloride Carbon Dioxide Anion Gap BUN Creatinine Creat Clearance w eGFR Random Glucose Calcium Total Bilirubin AST ALT Alkaline Phosphatase Total Protein Albumin Urine Color Yellow Urine Appearance Clear Urine pH 5.0 Ur Specific [place] 1.028 Urine Protein Negative Urine Glucose (UA) Negative Urine Ketones Negative Urine Blood Negative Urine Nitrite Negative Urine Bilirubin Negative Urine Urobilinogen Negative Ur Leukocyte Esterase Negative RPR Titer HIV 1&2 Antibody Screen Negative HIV P24 Antigen Negative - Treatment Hospital Course: Discharged Condition Good - Medication Discharge Medications: Ambulatory Orders NK [No Known Home Medication] 03/20/17 - Diagnosis (1) Alcohol dependence with uncomplicated withdrawal Status: Acute (2) Cocaine dependence, uncomplicated Status: Acute (3) Opioid dependence with withdrawal Status: Acute (4) Cannabis dependence, uncomplicated Status: Chronic (5) Nicotine dependence Status: Chronic Qualifiers: Nicotine product type: cigarettes Substance use status: uncomplicated Qualified Code(s): F17.210 - Nicotine dependence, cigarettes, uncomplicated - AMA Did Patient Leave Against Medical Advice: Yes
--- NOTE | 2018-04-25 17:33 | EKG ---
Test Reason : Blood Pressure : / mmHG Vent. Rate : 074 BPM Atrial Rate : 074 BPM P-R Int : 162 ms QRS Dur : 098 ms QT Int : 380 ms P-R-T Axes : 069 075 032 degrees QTc Int : 421 ms NORMAL SINUS RHYTHM NORMAL ECG WHEN COMPARED WITH ECG OF 23-DEC-2017 00:56, NO SIGNIFICANT CHANGE WAS FOUND Confirmed by MD JANET, EVANS ([id number]) on 04/25/2018 5:33:05 PM Referred By: Confirmed By:EVANS GONZALES MD
[2018-04-26] MEDS ORDERED: chlordiazePOXIDE HCL 10 MG CAPSULE PO SCH (05:00)
[2018-04-26] MEDS ORDERED: METHADONE HCL 10 MG TABLET (FOR DETOX USE ONLY) PO SCH (10:00)
[2018-04-27] MEDS ORDERED: METHADONE HCL 10 MG TABLET (FOR DETOX USE ONLY) PO SCH ×2 (06:00→10:00)
[2018-04-28] MEDS ORDERED: METHADONE HCL 10 MG TABLET (FOR DETOX USE ONLY) PO SCH (06:00)
== END 2018-04-25 11:11 | disposition left against medical advice (07) | DRG 770 ==
LOC: YASAS 22:01 → Y3N 04-23 01:21
PROC: HZ2ZZZZ Detoxification Services for Substance Abuse Treatment (ICD-10-PCS; principal; 2018-04-23)
DX: F11.23 Opioid dependence with withdrawal (principal); F10.230 Alcohol dependence with withdrawal, uncomplicated; F14.20 Cocaine dependence, uncomplicated; F12.20 Cannabis dependence, uncomplicated; F17.210 Nicotine dependence, cigarettes, uncomplicated
CPT/HCPCS: 36415; 80053; 81003; 85027; 86593; 87389; 93005; 93010

== ENCOUNTER 2018-07-09 14:05 | Inpatient (IN) | payer OTHER ==
[2018-07-09 15:50] VITALS: BMI 32.3
--- NOTE | 2018-07-09 17:32 | HP ---
COWS - Scale Resting Pulse: 1= [place] 81-100 Sweatin= Chills/Flushing Restless Observation: 0= Sits Still Pupil Size: 0= Normal to Room Light Bone or Joint Aches: 4=Acute Joint/Muscle Pain Runny Nose/ Eye Tearin= Runny Nose/Eyes GI Upset > 30mins: 1= Stomach Cramp Tremor Observation: 0= None Yawning Observation: 1= 1-2x During Session Anxiety or Irritability: 2=Irritable/Anxious Goose Flesh Skin: 0=Smooth Skin COWS Score: 12 CIWA Score Nausea/Vomitin-Mild Nausea/No Vomiting Muscle Tremors: None Anxiety: 1-Mildly Anxious Agitation: 1-Slight > Activity Paroxysmal Sweats: 2 Orientation: 0-Oriented Tacttile Disturbances: 0-None Auditory Disturbances: 0-None Visual Disturbances: 0-None Headache: 2-Mild CIWA-Ar Total Score: 7 - Admission Criteria OASAS Guidelines: Admission for Medically Managed Detox: Requires at least one of the followin. CIWA greater than 12 2. Seizures within the past 24 hours 3. Delirium tremens within the past 24 hours 4. Hallucinations within the past 24 hours 5. Acute intervention needed for co occurring medical disorder 6. Acute intervention needed for co occurring psychiatric disorder 7. Severe withdrawal that cannot be handled at a lower level of care (continued vomiting, continued diarrhea, abnormal vital signs) requiring intravenous medication and/or fluids 8. Admission ROS [facility] Allergies/Adverse Reactions: Allergies Allergy/AdvReac Type Severity Reaction Status Date / Time No Known Allergies Allergy Verified 04/23/18 02:53 History of Present Illness: patient here requesting detox from heroin use , reports use since age 26 , current daily use 10-15 bags via inhalation , denies IVDU , latest use this morning,current symptoms as above . Denies MMTP , denies OD , prior detox March 2018 at this facility , did not go to rehab . cocaine use : denies cannabis : occasional use tobacco : 1 ppd since age 18 etoh : 1 pint , latest use 2 days ago , denies tremors , seizures ,first age of use 18 , denies symptoms , blackouts or seizures . 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 Exam Limitations: No Limitations - Ebola screening Have you traveled outside of the country in the last 21 days: No Have you had contact with anyone from an Ebola affected area: No Have you been sick,other than usual withdrawal symptoms: No Do you have a fever: No - Review of Systems Constitutional: See HPI EENT: reports: See HPI Respiratory: reports: No Symptoms reported Cardiac: reports: No Symptoms Reported GI: reports: See HPI : reports: No Symptoms Reported Musculoskeletal: reports: Back Pain, Muscle Pain Integumentary: reports: No Symptoms Reported Neuro: reports: Headache Endocrine: reports: No Symptoms Reported Psychiatric: reports: Orientated x3, Agitated, Anxious Patient History - Patient Medical History Hx Anemia: No Hx Asthma: No Hx Chronic Obstructive Pulmonary Disease (COPD): No Hx Cancer: No Hx Cardiac Disorders: No Hx Congestive Heart Failure: No Hx Hypertension: No Hx Hypercholesterolemia: No Hx Pacemaker: No HX Cerebrovascular Accident: No Hx Seizures: No Hx Dementia: No Hx Diabetes: No Hx Gastrointestinal Disorders: No Hx Liver Disease: No Hx Genitourinary Disorders: No Hx Sexually Transmitted Disorders: No Hx Renal Disease (ESRD): No Hx Thyroid Disease: No Hx Human Immunodeficiency Virus (HIV): No (Last tested approx. 2 months ago: NEGATIVE.) Hx Hepatitis C: No (Last tested approx. 2 months ago: NEGATIVE.) Hx Depression: No Hx Suicide Attempt: No (PATIENT DENIES CURRENT SI / HI.) Hx Bipolar Disorder: No Hx Schizophrenia: No - Patient Surgical History Past Surgical History: No Hx Neurologic Surgery: No Hx Cataract Extraction: No Hx Cardiac Surgery: No Hx Lung Surgery: No Hx Breast Surgery: No Hx Breast Biopsy: No Hx Abdominal Surgery: No Hx Appendectomy: No Hx Cholecystectomy: No Hx Genitourinary Surgery: No Hx Orthopedic Surgery: No Anesthesia Reaction: No - PPD History Date: 08/20/17 - Smoking Cessation Smoking history: Current every day smoker Have you smoked in the past 12 months: Yes Aproximately how many cigarettes per day: 20 Cigars Per Day: 0 Hx Chewing Tobacco Use: No Initiated information on smoking cessation: No Family Disease History - Family Disease History Family Disease History: Diabetes: Grandparent, Sister Admission Physical Exam BHS - Vital Signs Vital Signs: Vital Signs - 24 hr 07/09/18 15:44 Temperature 98.5 F Pulse Rate 87 Respiratory 20 Rate Blood Pressure 113/77 - Physical General Appearance: Yes: Mild Distress, Anxious HEENTM: Yes: EOMI, Hearing grossly Normal, Normocephalic, Normal Voice, Nasal Congestion, Rhinorrhea Respiratory: Yes: Chest Non-Tender, Lungs Clear, Normal Breath Sounds Neck: Yes: No masses,lesions,Nodules, Trachea in good position Cardiology: Yes: Regular Rhythm, Regular Rate, S1, S2 Abdominal: Yes: Normal Bowel Sounds, Non Tender, Soft Back: Yes: Normal Inspection Musculoskeletal: Yes: full range of Motion, Gait Steady Extremities: Yes: Normal Capillary Refill, Non-Tender 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: Yes: Motor Strength 5/5 Integumentary: Yes: Normal Color - Diagnostic (1) Opioid dependence with withdrawal Current Visit: Yes Status: Acute (2) Cannabis dependence, uncomplicated Current Visit: Yes Status: Chronic (3) Nicotine dependence Current Visit: Yes Status: Chronic Qualifiers: Nicotine product type: cigarettes Substance use status: uncomplicated Qualified Code(s): F17.210 - Nicotine dependence, cigarettes, uncomplicated (4) Alcohol dependence with uncomplicated withdrawal Current Visit: Yes Status: Acute BHS Breath Alcohol Content Breath Alcohol Content: 0 Urine Drug Screen - Results Drug Screen Negative: No Urine Drug Screen Results: THC-Marijuana, ALE-Cocaine, OPI-Opiates, FEN-Fentanyl Inpatient Rehab Admission - Rehab Decision to Admit Inpatient rehab admission?: No
[2018-07-09] MEDS ORDERED: MENTHOL/PHENOL 1 EACH UD MM PRN (20:02)
[2018-07-09] MEDS ORDERED: ACETAMINOPHEN 325 MG TABLET (FP) PO PRN (20:02)
[2018-07-09] MEDS ORDERED: MAGNESIUM HYDROX 2400MG/30ML ORAL SUSPENSION 30 ML CUP PO PRN (20:02)
[2018-07-09] MEDS ORDERED: MAG HYDROX/AL HYDROX/SIMETH 30 ML UNIT-DOSE CUP PO PRN (20:02)
[2018-07-09] MEDS ORDERED: NICOTINE POLACRILEX 2 MG GUM BUC PRN (20:02)
[2018-07-09] MEDS ORDERED: IBUPROFEN 400 MG TABLET (FP) PO PRN (20:02)
[2018-07-09] MEDS ORDERED: MAGNESIUM CITRATE 300 ML BOTTLE PO PRN (20:02)
[2018-07-09] MEDS ORDERED: METHADONE HCL 10 MG TABLET (FOR DETOX USE ONLY) PO ONE ×2 (20:02→23:00)
[2018-07-09] MEDS: THIAMINE HCL 100 MG TABLET (FP) PO SCH (22:01)
[2018-07-09] MEDS: diazePAM 5 MG TABLET PO SCH (22:01)
[2018-07-10] MEDS: diazePAM 5 MG TABLET PO SCH ×3 (05:19→22:23)
--- NOTE | 2018-07-10 09:37 | PN ---
S CIWA - CIWA Score Nausea/Vomitin Muscle Tremors: 2 Anxiety: 2 Agitation: 2 Paroxysmal Sweats: 1-Minimal Palms Moist Orientation: 0-Oriented Tacttile Disturbances: 1-Very Mild Itch/Numbness Auditory Disturbances: 1-Very Mild Visual Disturbances: 0-None Headache: 2-Mild CIWA-Ar Total Score: 13 BHS COWS - Scale Resting Pulse: 0= [place] 80 or Below Sweatin= Chills/Flushing Restless Observation: 3= Extraneous Movement Pupil Size: 1= Pupils >than Normal Bone or Joint Aches: 2= Severe Diffuse Aches Runny Nose/ Eye Tearin= Nasal Congestion GI Upset > 30mins: 2= Nausea/Diarrhea Tremor Observation of Outstretched Hands: 2= Slight Tremor Visible Yawning Observation: 1= 1-2x During Session Anxiety or Irritability: 2=Irritable/Anxious Goose Flesh Skin: 0=Smooth Skin COWS Score: 15 BHS Progress Note (SOAP) Subjective: alert,irritable,anxious,interrupted sleep,tremor,pain in the body and back Objective: 07/10/18 09:36 Vital Signs Temperature 97.8 F 07/10/18 09:13 Pulse Rate 69 07/10/18 09:13 Respiratory Rate 18 07/10/18 09:13 Blood Pressure 102/59 L 07/10/18 09:13 O2 Sat by Pulse Oximetry (%) 07/10/18 09:36 labs pending Assessment: 07/10/18 09:37 withdrawal symptom Plan: continue detox
[2018-07-10] MEDS ORDERED: METHADONE HCL 10 MG TABLET (FOR DETOX USE ONLY) PO SCH (10:00)
[2018-07-10] MEDS: PRENATAL VITAMINS W/ FOLIC ACID TABLET (FP) PO SCH (10:12)
[2018-07-10] MEDS: diazePAM 5 MG TABLET PO PRN (10:13)
[2018-07-10] MEDS: CYCLOBENZAPRINE HCL 10 MG TABLET (FP) PO PRN ×2 (10:16→22:22)
[2018-07-10 11:22] LABS: HEMOGLOBIN 14.3 GM/dL (11.7-16.9); MCH 30.2 pg (25.7-33.7); MCHC 34.1 g/dl (32.0-35.9); MEAN CELL VOLUME 88.4 fl (80-96); MEAN PLT VOLUME 10.7 fl (7.5-11.1); PLATELET COUNT 138 K/MM3 (134-434); RBC 4.75 M/mm3 (4.00-5.60); RDW 13.4 % (11.9-15.9); WHITE BLOOD COUNT 7.5 K/mm3 (4.0-10.0)
[2018-07-10] MEDS: cloNIDine HCL 0.1 MG TABLET PO SCH ×2 (11:43→22:23)
[2018-07-10 12:06] LABS: ALBUMIN 3.4 g/dl (3.4-5.0); ALK PHOS 74 U/L (45-117); ANION GAP 6 MMOL/L (8-16); BILIRUBIN,TOTAL 0.2 mg/dL (0.2-1); BLOOD UREA NITROGEN 7 mg/dL (7-18); CALCIUM 8.8 mg/dL (8.5-10.1); CHLORIDE 106 mmol/L (98-107); CO2 30 mmol/L (21-32); CREATININE 0.7 mg/dL (0.55-1.3); GLUCOSE,RANDOM 77 mg/dL (74-106); POTASSIUM 3.8 mmol/L (3.5-5.1); SGOT/AST 14 U/L (15-37); SGPT/ALT 23 U/L (13-61); SODIUM 142 mmol/L (136-145); TOT PROT 6.5 g/dl (6.4-8.2)
[2018-07-10] MEDS: MELATONIN 5 MG TABLETS PO PRN (22:23)
[2018-07-10] MEDS: THIAMINE HCL 100 MG TABLET (FP) PO SCH (22:23)
[2018-07-11] MEDS: diazePAM 5 MG TABLET PO PRN ×3 (06:20→19:05)
--- NOTE | 2018-07-11 09:40 | PN ---
S CIWA - CIWA Score Nausea/Vomitin Muscle Tremors: 2 Anxiety: 2 Agitation: 2 Paroxysmal Sweats: 1-Minimal Palms Moist Orientation: 0-Oriented Tacttile Disturbances: 1-Very Mild Itch/Numbness Auditory Disturbances: 1-Very Mild Visual Disturbances: 0-None Headache: 2-Mild CIWA-Ar Total Score: 13 BHS COWS - Scale Resting Pulse: 0= [place] 80 or Below Sweatin= Chills/Flushing Restless Observation: 1= Difficult to Sit Still Pupil Size: 1= Pupils >than Normal Bone or Joint Aches: 2= Severe Diffuse Aches Runny Nose/ Eye Tearin= Runny Nose/Eyes GI Upset > 30mins: 2= Nausea/Diarrhea Tremor Observation of Outstretched Hands: 2= Slight Tremor Visible Yawning Observation: 1= 1-2x During Session Anxiety or Irritability: 2=Irritable/Anxious Goose Flesh Skin: 0=Smooth Skin COWS Score: 14 S Progress Note (SOAP) Subjective: alert,irritable,anxious,interrupted sleep,tremor,pain in the body and back Objective: 07/11/18 09:39 Vital Signs Temperature 98.2 F 07/11/18 09:35 Pulse Rate 77 07/11/18 09:35 Respiratory Rate 16 07/11/18 09:35 Blood Pressure 103/61 07/11/18 09:35 O2 Sat by Pulse Oximetry (%) 07/11/18 09:39 Laboratory Last Values WBC 7.5 K/mm3 (4.0-10.0) 07/10/18 07:00 RBC 4.75 M/mm3 (4.00-5.60) 07/10/18 07:00 Hgb 14.3 GM/dL (11.7-16.9) 07/10/18 07:00 Hct 42.0 % (35.4-49) 07/10/18 07:00 MCV 88.4 fl (80-96) 07/10/18 07:00 MCH 30.2 pg (25.7-33.7) 07/10/18 07:00 MCHC 34.1 g/dl (32.0-35.9) 07/10/18 07:00 RDW 13.4 % (11.9-15.9) 07/10/18 07:00 Plt Count 138 K/MM3 (134-434) D 07/10/18 07:00 MPV 10.7 fl (7.5-11.1) 07/10/18 07:00 Sodium 142 mmol/L (136-145) 07/10/18 07:00 Potassium 3.8 mmol/L (3.5-5.1) 07/10/18 07:00 Chloride 106 mmol/L (98-107) 07/10/18 07:00 Carbon Dioxide 30 mmol/L (21-32) 07/10/18 07:00 Anion Gap 6 MMOL/L (8-16) L 07/10/18 07:00 BUN 7 mg/dL (7-18) 07/10/18 07:00 Creatinine 0.7 mg/dL (0.55-1.3) 07/10/18 07:00 Creat Clearance w eGFR > 60 (>60) 07/10/18 07:00 Random Glucose 77 mg/dL (74-106) 07/10/18 07:00 Calcium 8.8 mg/dL (8.5-10.1) 07/10/18 07:00 Total Bilirubin 0.2 mg/dL (0.2-1) 07/10/18 07:00 AST 14 U/L (15-37) L 07/10/18 07:00 ALT 23 U/L (13-61) 07/10/18 07:00 Alkaline Phosphatase 74 U/L (45-117) 07/10/18 07:00 Total Protein 6.5 g/dl (6.4-8.2) 07/10/18 07:00 Albumin 3.4 g/dl (3.4-5.0) 07/10/18 07:00 RPR Titer Nonreactive (NONREACTIVE) 07/10/18 07:00 Assessment: 07/11/18 09:39 withdrawal symptom Plan: continue detox
[2018-07-11] MEDS ORDERED: METHADONE HCL 5 MG TABLET (FOR DETOX USE ONLY) PO SCH (10:00)
[2018-07-11] MEDS: PRENATAL VITAMINS W/ FOLIC ACID TABLET (FP) PO SCH (10:18)
[2018-07-11] MEDS: cloNIDine HCL 0.1 MG TABLET PO SCH ×2 (10:18→22:54)
[2018-07-11] MEDS: diazePAM 5 MG TABLET PO SCH ×2 (10:18→22:54)
[2018-07-11] MEDS: CYCLOBENZAPRINE HCL 10 MG TABLET (FP) PO PRN ×2 (14:36→22:55)
[2018-07-11] MEDS: THIAMINE HCL 100 MG TABLET (FP) PO SCH (22:53)
[2018-07-12] MEDS ORDERED: METHADONE HCL 5 MG TABLET (FOR DETOX USE ONLY) PO ONE (10:00)
[2018-07-12] MEDS ORDERED: METHADONE HCL 10 MG TABLET (FOR DETOX USE ONLY) PO SCH (10:00)
[2018-07-12] MEDS: cloNIDine HCL 0.1 MG TABLET PO SCH ×2 (10:17→22:07)
[2018-07-12] MEDS: diazePAM 5 MG TABLET PO SCH ×2 (10:17→22:07)
[2018-07-12] MEDS: PRENATAL VITAMINS W/ FOLIC ACID TABLET (FP) PO SCH (10:17)
[2018-07-12] MEDS: CYCLOBENZAPRINE HCL 10 MG TABLET (FP) PO PRN ×2 (10:17→23:15)
--- NOTE | 2018-07-12 10:46 | PN ---
[facility] Progress Note Note: PATIENT CONTINUES DETOX FROM HEROIN DEPENDENCE. C/O NAUSEA, POOR APPETITE, CHILLS AND SLEEP DISTURBANCE. Laboratory Tests 07/10/18 07/10/18 07/10/18 07:00 07:00 07:00 WBC 7.5 RBC 4.75 Hgb 14.3 Hct 42.0 MCV 88.4 MCH 30.2 MCHC 34.1 RDW 13.4 Plt Count 138 D MPV 10.7 Sodium 142 Potassium 3.8 Chloride 106 Carbon Dioxide 30 Anion Gap 6 L BUN 7 Creatinine 0.7 Creat Clearance w eGFR > 60 Random Glucose 77 Calcium 8.8 Total Bilirubin 0.2 AST 14 L ALT 23 Alkaline Phosphatase 74 Total Protein 6.5 Albumin 3.4 RPR Titer Nonreactive Vital Signs Temperature 98.2 F 07/12/18 09:26 Pulse Rate 81 07/12/18 09:26 Respiratory Rate 18 07/12/18 09:26 Blood Pressure 125/80 07/12/18 09:26 O2 Sat by Pulse Oximetry (%) PE: ALERT AND ORIENTED X 3 SKIN WARM AND MOIST ON FOREHEAD AND TRUNK AREA EXT FULL ROM, NO TREMORS AMB AD CHASE ANXIOUS A/P: WITHDRAWAL SX CONTINUE DETOX ENCOURAGE ORAL FLUIDS ENSURE SUPPLEMENT CONTINUE TO MONITOR CLINICALLY
[2018-07-12] MEDS: diazePAM 5 MG TABLET PO PRN (17:07)
[2018-07-12] MEDS: THIAMINE HCL 100 MG TABLET (FP) PO SCH (22:08)
[2018-07-12] MEDS: MELATONIN 5 MG TABLETS PO PRN (22:09)
[2018-07-13] MEDS ORDERED: METHADONE HCL 5 MG TABLET (FOR DETOX USE ONLY) PO SCH (06:00)
[2018-07-13] MEDS ORDERED: diazePAM 5 MG TABLET PO SCH (10:00)
[2018-07-13] MEDS ORDERED: METHADONE HCL 10 MG TABLET (FOR DETOX USE ONLY) PO ONE (10:00)
--- NOTE | 2018-07-13 10:40 | EKG ---
Test Reason : Blood Pressure : / mmHG Vent. Rate : 090 BPM Atrial Rate : 090 BPM P-R Int : 152 ms QRS Dur : 088 ms QT Int : 346 ms P-R-T Axes : 065 064 030 degrees QTc Int : 423 ms NORMAL SINUS RHYTHM NORMAL ECG WHEN COMPARED WITH ECG OF 23-APR-2018 02:49, T WAVE VARIATION Confirmed by MICHELLE GONZALEZ MD ([id number]) on 07/13/2018 10:39:28 AM Referred By: Confirmed By:MICHELLE GONZALEZ MD
[2018-07-13] MEDS: PRENATAL VITAMINS W/ FOLIC ACID TABLET (FP) PO SCH (10:53)
[2018-07-13] MEDS: cloNIDine HCL 0.1 MG TABLET PO SCH ×2 (10:53→22:39)
--- NOTE | 2018-07-13 12:55 | PN ---
BHS Progress Note (SOAP) Subjective: Fatigue. Objective: PATIENT A & O X 3, OBSERVED AMBULATING ON UNIT. IN NO ACUTE DISTRESS. 07/13/18 12:54 Vital Signs Temperature 97.7 F 07/13/18 09:34 Pulse Rate 73 07/13/18 09:34 Respiratory Rate 18 07/13/18 09:34 Blood Pressure 103/68 07/13/18 09:34 O2 Sat by Pulse Oximetry (%) Laboratory Tests 07/10/18 07/10/18 07/10/18 07:00 07:00 07:00 WBC 7.5 RBC 4.75 Hgb 14.3 Hct 42.0 MCV 88.4 MCH 30.2 MCHC 34.1 RDW 13.4 Plt Count 138 D MPV 10.7 Sodium 142 Potassium 3.8 Chloride 106 Carbon Dioxide 30 Anion Gap 6 L BUN 7 Creatinine 0.7 Creat Clearance w eGFR > 60 Random Glucose 77 Calcium 8.8 Total Bilirubin 0.2 AST 14 L ALT 23 Alkaline Phosphatase 74 Total Protein 6.5 Albumin 3.4 RPR Titer Nonreactive LABS NOTED. Assessment: 07/13/18 12:54 WITHDRAWAL SYMPTOMS. Plan: CONTINUE DETOX. PATIENT SCHEDULED FOR DETOX TOMORROW.
[2018-07-13] MEDS: CYCLOBENZAPRINE HCL 10 MG TABLET (FP) PO PRN ×2 (13:50→23:35)
--- NOTE | 2018-07-13 16:45 | PN ---
[facility] Progress Note Note: DURING AM ROUNDS ASSESSMENT EARLIER TODAY, PATIENT REPORTED THAT HE WAS FEELING WELL AND THAT HE WAS CONTEMPLATING LEAVING ONE DAY EARLIER (ORIGINAL DISCHARGE DATE SCHEDULED FOR TOMORROW, 07/14/2018). HOWEVER, PATIENT THEN DECIDED TOP REMAIN ON DETOX UNIT UNTIL ORIGINAL DISCHARGE DATE OF TOMORROW. DURING AFTERNOON MANAGER SQL SPOKE TO PATIENT AND HE REPORTED THAT HE WAS NOT FEELING WELL AND THAT HE WAS CONTEMPLATING LEAVING DETOX UNIT BECAUSE HIS PRN VALIUM HAD SINCE COMPLETED. PATIENT MADE AWARE THAT HE IS PRESCRIBED SUPPORTIVE MEDICATIONS OF FLEXERIL PO PRN AND CLONIDINE PO BID. HOWEVER, PATIENT RESPONDED THAT HE WAS STILL CONTEMPLATING LEAVING DETOX UNIT. PATIENT MADE AWARE THAT, GIVEN NEW CIRCUMSTANCES AND GIVEN HIS REPORT OF "NOT FEELING WELL," IF HE CHOOSES TO LEAVE DETOX UNIT BEFORE TOMORROW AM, HE WILL BE DOING SO AGAINST MEDICAL ADVICE. PATIENT VERBALIZED UNDERSTANDING OF RECOMMENDATION. PATIENT STILL UNDECIDED ABOUT LEAVING DETOX UNIT AT THIS TIME. Erinn العراقي NP
[2018-07-13] MEDS ORDERED: hydrOXYzine PAMOATE 50 MG CAPSULE (FP) PO ONE (19:15)
[2018-07-13] MEDS: THIAMINE HCL 100 MG TABLET (FP) PO SCH (22:40)
[2018-07-13] MEDS: MELATONIN 5 MG TABLETS PO PRN (23:35)
[2018-07-14] MEDS ORDERED: METHADONE HCL 5 MG TABLET (FOR DETOX USE ONLY) PO ONE (06:00)
[2018-07-14 09:40] VITALS: BP 143/84; PULSE 96; TEMP 98.2
--- NOTE | 2018-07-14 13:48 | DS ---
[facility] Detox Discharge Summary Admission Date: 07/09/18 Discharge Date: 07/14/18 - History Present History: Alcohol Dependence, Cannabis Dependence, Opioid Dependence Additional Comments: PATIENT GOING HOME. PATIENT ADVISED TO CONSIDER LOCAL 12-STEP / NA / AA OUTPATIENT SUPPORT GROUP PROGRAM FOR AFTERCARE. PATIENT VERBALIZED UNDERSTANDING OF RECOMMENDATION. PATIENT WAS DISCHARGED FROM DETOX UNIT IN STABLE MEDICAL CONDITION. Pertinent Past History: Nicotine Dependence. - Physical Exam Results Vital Signs: Vital Signs Temperature 98.2 F 07/14/18 09:38 Pulse Rate 96 H 07/14/18 09:38 Respiratory Rate 18 07/14/18 09:38 Blood Pressure 143/84 07/14/18 09:38 O2 Sat by Pulse Oximetry (%) Pertinent Admission Physical Exam Findings: WITHDRAWAL SYMPTOMS. Laboratory Tests 07/10/18 07/10/18 07/10/18 07:00 07:00 07:00 WBC 7.5 RBC 4.75 Hgb 14.3 Hct 42.0 MCV 88.4 MCH 30.2 MCHC 34.1 RDW 13.4 Plt Count 138 D MPV 10.7 Sodium 142 Potassium 3.8 Chloride 106 Carbon Dioxide 30 Anion Gap 6 L BUN 7 Creatinine 0.7 Creat Clearance w eGFR > 60 Random Glucose 77 Calcium 8.8 Total Bilirubin 0.2 AST 14 L ALT 23 Alkaline Phosphatase 74 Total Protein 6.5 Albumin 3.4 RPR Titer Nonreactive LABS NOTED. - Treatment Hospital Course: Detox Protocol Followed, Detoxed Safely, Responded well, Discharged Condition Good Patient has Accepted a Rehab Referral to: PATIENT ADVISED TO CONSIDER LOCAL 12- STEP/NA/AA OUTPATIENT SUPPORT GROUP. - Medication Discharge Medications: Ambulatory Orders NK [No Known Home Medication] 03/20/17 - Diagnosis (1) Alcohol dependence with uncomplicated withdrawal Status: Acute (2) Opioid dependence with withdrawal Status: Acute (3) Nicotine dependence Status: Chronic Qualifiers: Nicotine product type: cigarettes Substance use status: uncomplicated Qualified Code(s): F17.210 - Nicotine dependence, cigarettes, uncomplicated (4) Cannabis dependence, uncomplicated Status: Chronic - AMA Did Patient Leave Against Medical Advice: No
== END 2018-07-14 09:10 | disposition home or self-care (01) | DRG 773 ==
LOC: YASAS 14:05 → Y6N 19:24
PROVIDERS: ADMIT Surgery; ATTEND Surgery
PROC: HZ2ZZZZ Detoxification Services for Substance Abuse Treatment (ICD-10-PCS; principal; 2018-07-09)
DX: F11.23 Opioid dependence with withdrawal (principal); F10.230 Alcohol dependence with withdrawal, uncomplicated; F12.20 Cannabis dependence, uncomplicated; F17.210 Nicotine dependence, cigarettes, uncomplicated
CPT/HCPCS: 36415; 80053; 85027; 86593; 93005; 93010; J0735

== ENCOUNTER 2018-07-29 13:58 | Inpatient (IN) | payer OTHER ==
[2018-07-29 16:19] VITALS: BMI 26.6
--- NOTE | 2018-07-29 19:55 | PN ---
[facility] Progress Note Note: Informed by staff, patient reported he asked his mother to pick him up and will return in the morning.
--- NOTE | 2018-07-29 21:01 | HP ---
COWS - Scale Resting Pulse: 4= [place] > 121 Sweatin= Chills/Flushing Restless Observation: 1= Difficult to Sit Still Pupil Size: 1= Pupils >than Normal Bone or Joint Aches: 1= Mild Discomfort Runny Nose/ Eye Tearin= Runny Nose/Eyes GI Upset > 30mins: 3= Vomiting/Diarrhea Tremor Observation: 0= None Yawning Observation: 2= >3x During Session Anxiety or Irritability: 2=Irritable/Anxious Goose Flesh Skin: 0=Smooth Skin COWS Score: 17 CIWA Score Nausea/Vomitin-Int. Nausea w/Dry Heave Muscle Tremors: 2 Anxiety: 3 Agitation: 1-Slight > Activity Paroxysmal Sweats: 2 Orientation: 1-Uncertain about Date Tacttile Disturbances: 1-Very Mild Itch/Numbness Auditory Disturbances: 0-None Visual Disturbances: 0-None Headache: 2-Mild CIWA-Ar Total Score: 16 - Admission Criteria OAS Guidelines: Admission for Medically Managed Detox: Requires at least one of the followin. CIWA greater than 12 2. Seizures within the past 24 hours 3. Delirium tremens within the past 24 hours 4. Hallucinations within the past 24 hours 5. Acute intervention needed for co occurring medical disorder 6. Acute intervention needed for co occurring psychiatric disorder 7. Severe withdrawal that cannot be handled at a lower level of care (continued vomiting, continued diarrhea, abnormal vital signs) requiring intravenous medication and/or fluids 8. Patient presents the following: CIWA greater than 12 Admission Criteria Met: Admission criteria met Admission ROS [facility] Chief Complaint: " I need detox" Allergies/Adverse Reactions: Allergies Allergy/AdvReac Type Severity Reaction Status Date / Time No Known Allergies Allergy Verified 07/29/18 21:10 History of Present Illness: 28 yo male with nicotine, alcohol, heroin ( nasal) dependence is here seeking detox d/t withdrawal symptoms, this is one of multiple admissions. Last detox [facility] 07/09/18 - , patient reports he relapse soon after, plans to attend rehabilitation after this detox. Reports no significant period of sobriety. Denies hx of seizures, or overdose. Denies medial hx or psych. Exam Limitations: No Limitations - Ebola screening Have you traveled outside of the country in the last 21 days: No Have you had contact with anyone from an Ebola affected area: No Have you been sick,other than usual withdrawal symptoms: No Do you have a fever: No - Review of Systems Constitutional: Chills, Loss of Appetite, Changes in sleep EENT: reports: Nose Congestion (runny nose) Respiratory: reports: No Symptoms reported Cardiac: reports: Palpitations GI: reports: Constipated (last bm yesterday), Nausea, Poor Appetite, Poor Fluid Intake, Vomiting, Abdominal cramping : reports: No Symptoms Reported Musculoskeletal: reports: Back Pain Integumentary: reports: Dryness, Lesions (abcess), Rash (right brow) Neuro: reports: Dizziness Endocrine: reports: Increased Thirst Hematology: reports: No Symptoms Reported Psychiatric: reports: Orientated x3, Anxious Other Systems: Reviewed and Negative Patient History - Patient Medical History Hx Anemia: No Hx Asthma: No Hx Chronic Obstructive Pulmonary Disease (COPD): No Hx Cancer: No Hx Cardiac Disorders: No Hx Congestive Heart Failure: No Hx Hypertension: No Hx Hypercholesterolemia: No Hx Pacemaker: No HX Cerebrovascular Accident: No Hx Seizures: No Hx Dementia: No Hx Diabetes: No Hx Gastrointestinal Disorders: No Hx Liver Disease: No Hx Genitourinary Disorders: No Hx Sexually Transmitted Disorders: No Hx Renal Disease (ESRD): No Hx Thyroid Disease: No Hx Human Immunodeficiency Virus (HIV): No (Last tested approx. 2 months ago: NEGATIVE.) Hx Hepatitis C: No (Last tested approx. 2 months ago: NEGATIVE.) Hx Depression: No Hx Suicide Attempt: No (PATIENT DENIES CURRENT SI / HI.) Hx Bipolar Disorder: No Hx Schizophrenia: No - Patient Surgical History Past Surgical History: No Hx Neurologic Surgery: No Hx Cataract Extraction: No Hx Cardiac Surgery: No Hx Lung Surgery: No Hx Breast Surgery: No Hx Breast Biopsy: No Hx Abdominal Surgery: No Hx Appendectomy: No Hx Cholecystectomy: No Hx Genitourinary Surgery: No Hx Orthopedic Surgery: No Anesthesia Reaction: No - PPD History Previous Implant?: No Documented Results: Negative w/proof Date: 08/20/17 PPD to be Administered?: No - Smoking Cessation Smoking history: Current every day smoker Have you smoked in the past 12 months: Yes Aproximately how many cigarettes per day: 20 Cigars Per Day: 0 Hx Chewing Tobacco Use: No Initiated information on smoking cessation: Yes 'Breaking Loose' booklet given: 07/29/18 - Substance & Tx. History Hx Alcohol Use: No Hx Substance Use: Yes Substance Use Type: Heroin Hx Substance Use Treatment: Yes - Substances Abused alcohol Route: Oral Frequency: Daily Amount used: 1 pint liquor Age of first use: 18 Date of Last Use: 07/28/18 Heroin Route: Inhalation Frequency: Daily Amount used: 10 Age of first use: 26 Date of Last Use: 07/28/18 Family Disease History - Family Disease History Family Disease History: Diabetes: Grandparent, Sister Admission Physical Exam [facility] - Vital Signs Vital Signs: Vital Signs - 24 hr 07/29/18 16:14 Temperature 96.2 F L Pulse Rate 122 H Respiratory 20 Rate Blood Pressure 127/89 - Physical General Appearance: Yes: Disheveled, Moderate Distress, Thin, Sweating, Anxious HEENTM: Yes: EOMI, Hearing grossly Normal, Normal ENT Inspection, Normocephalic , Normal Voice, GERALD, Pharynx Normal, Tm's normal Respiratory: Yes: Chest Non-Tender, Lungs Clear, Normal Breath Sounds, No Respiratory Distress, No Accessory Muscle Use Neck: Yes: Within Normal Limits Breast: Yes: Breast Exam Deferred Cardiology: Yes: Regular Rhythm, Tachycardia Abdominal: Yes: Normal Bowel Sounds, Non Tender, Flat, Soft Genitourinary: Yes: Within Normal Limits Back: Yes: Normal Inspection Musculoskeletal: Yes: full range of Motion, Gait Steady, Pelvis Stable, Back pain Extremities: Yes: Normal Capillary Refill, Normal Inspection, Normal Range of Motion, Non-Tender 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: Yes: 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 NML intact, Fully Oriented, Alert, Motor Strength 5/5, Depressed Affect Integumentary: Yes: Normal Color, Warm, Diaphoresis, Other (erythematus rash on right brow, lesion back of head) Lymphatic: Yes: Within Normal Limits - Diagnostic (1) Abscess Current Visit: Yes Status: Acute (2) Alcohol dependence with uncomplicated withdrawal Current Visit: Yes Status: Acute (3) Opioid dependence with withdrawal Current Visit: Yes Status: Acute (4) Nicotine dependence Current Visit: Yes Status: Chronic Qualifiers: Nicotine product type: cigarettes Substance use status: uncomplicated Qualified Code(s): F17.210 - Nicotine dependence, cigarettes, uncomplicated Cleared for Admission [facility] - Detox or Rehab [facility] Level of Care: Medically Managed Detox Regimen/Protocol: Methadone/Valium [facility] Breath Alcohol Content Breath Alcohol Content: 0 Urine Drug Screen - Results Drug Screen Negative: No Urine Drug Screen Results: THC-Marijuana, OPI-Opiates, BZO-Benzodiazepines, FEN- Fentanyl Inpatient Rehab Admission - Rehab Decision to Admit Inpatient rehab admission?: No
[2018-07-29] MEDS ORDERED: MAGNESIUM HYDROX 2400MG/30ML ORAL SUSPENSION 30 ML CUP PO PRN (21:12)
[2018-07-29] MEDS ORDERED: IBUPROFEN 400 MG TABLET (FP) PO PRN (21:12)
[2018-07-29] MEDS ORDERED: MENTHOL/PHENOL 1 EACH UD MM PRN (21:12)
[2018-07-29] MEDS ORDERED: METHOCARBAMOL 500 MG TABLET PO PRN (21:12)
[2018-07-29] MEDS ORDERED: MAGNESIUM CITRATE 300 ML BOTTLE PO PRN (21:12)
[2018-07-29] MEDS ORDERED: NICOTINE POLACRILEX 2 MG GUM BUC PRN (21:12)
[2018-07-29] MEDS ORDERED: hydrOXYzine PAMOATE 25 MG CAPSULE (FP) PO PRN (21:12)
[2018-07-29] MEDS ORDERED: MAG HYDROX/AL HYDROX/SIMETH 30 ML UNIT-DOSE CUP PO PRN (21:12)
[2018-07-29] MEDS ORDERED: ACETAMINOPHEN 325 MG TABLET (FP) PO PRN ×2 (21:12)
[2018-07-29] MEDS ORDERED: BISMUTH SUBSALICYLATE 524 MG/30 ML UD PO PRN (21:12)
[2018-07-29] MEDS ORDERED: ONDANSETRON *ODT* 4 MG TABLET SL PRN (21:12)
[2018-07-29] MEDS: diazePAM 5 MG TABLET PO SCH (22:38)
[2018-07-29] MEDS: MELATONIN 5 MG TABLETS PO PRN (22:38)
[2018-07-29] MEDS: BACITRACIN 15 GM TUBE TOPICAL OINTMENT TP SCH (22:44)
[2018-07-29] MEDS ORDERED: METHADONE HCL 10 MG TABLET (FOR DETOX USE ONLY) PO ONE (23:00)
[2018-07-29 23:09] LABS: URINE APPEARANCE CLEAR; URINE BILIRUBIN NEGATIVE (<2.0 mg/dL); URINE COLOR YELLOW; URINE GLUCOSE (UA) NEGATIVE (NEGATIVE); URINE KETONE 2+ (NEGATIVE); URINE LEUK ESTERASE NEGATIVE (NEGATIVE); URINE NITRITE NEGATIVE (NEGATIVE); URINE PROTEIN 1+ (NEGATIVE)
[2018-07-29] MEDS: CEPHALEXIN MONOHYDRATE 250 MG CAPSULE (FP) PO SCH (23:14)
[2018-07-29 23:18] LABS: URINE MUCUS FEW
[2018-07-30] MEDS: CEPHALEXIN MONOHYDRATE 250 MG CAPSULE (FP) PO SCH ×4 (06:25→23:08)
[2018-07-30] MEDS: diazePAM 5 MG TABLET PO SCH ×3 (06:25→22:10)
--- NOTE | 2018-07-30 09:27 | PN ---
S CIWA - CIWA Score Nausea/Vomitin Muscle Tremors: 2 Anxiety: 2 Agitation: 2 Paroxysmal Sweats: 1-Minimal Palms Moist Orientation: 0-Oriented Tacttile Disturbances: 1-Very Mild Itch/Numbness Auditory Disturbances: 1-Very Mild Visual Disturbances: 0-None Headache: 2-Mild CIWA-Ar Total Score: 13 BHS COWS - Scale Resting Pulse: 2= [place] 101-120 Sweatin= Chills/Flushing Restless Observation: 3= Extraneous Movement Pupil Size: 1= Pupils >than Normal Bone or Joint Aches: 2= Severe Diffuse Aches Runny Nose/ Eye Tearin= Nasal Congestion GI Upset > 30mins: 2= Nausea/Diarrhea Tremor Observation of Outstretched Hands: 1= Tremor [place], Not Seen Yawning Observation: 1= 1-2x During Session Anxiety or Irritability: 2=Irritable/Anxious Goose Flesh Skin: 0=Smooth Skin COWS Score: 16 S Progress Note (SOAP) Subjective: alert,irritable,anxious,interrupted sleep,pain in the body and back Objective: 07/30/18 09:25 Vital Signs Temperature 97.5 F L 07/30/18 06:48 Pulse Rate 89 07/30/18 06:48 Respiratory Rate 16 07/30/18 06:48 Blood Pressure 120/88 07/30/18 06:48 O2 Sat by Pulse Oximetry (%) 07/30/18 09:25 labs pending Assessment: 07/30/18 09:26 withdrawal symptom Plan: continue detox
[2018-07-30] MEDS ORDERED: METHADONE HCL 10 MG TABLET (FOR DETOX USE ONLY) PO ONE (10:00)
[2018-07-30] MEDS: diazePAM 5 MG TABLET PO PRN ×2 (10:26→17:21)
[2018-07-30] MEDS: cloNIDine HCL 0.1 MG TABLET PO PRN (10:27)
[2018-07-30] MEDS: NICOTINE 14 MG/24 HOURS TOPICAL PATCH TD SCH (10:27)
[2018-07-30] MEDS: PRENATAL VITAMINS W/ FOLIC ACID TABLET (FP) PO SCH (10:27)
[2018-07-30] MEDS: BACITRACIN 15 GM TUBE TOPICAL OINTMENT TP SCH (10:28)
[2018-07-30] MEDS: THIAMINE HCL 100 MG TABLET (FP) PO SCH (10:28)
[2018-07-30 10:32] LABS: HEMATOCRIT 42.4 % (35.4-49); HEMOGLOBIN 14.5 GM/dL (11.7-16.9); MCH 29.9 pg (25.7-33.7); MCHC 34.2 g/dl (32.0-35.9); MEAN CELL VOLUME 87.3 fl (80-96); MEAN PLT VOLUME 10.4 fl (7.5-11.1); PLATELET COUNT 181 K/MM3 (134-434); RBC 4.86 M/mm3 (4.00-5.60); RDW 13.6 % (11.9-15.9); WHITE BLOOD COUNT 9.1 K/mm3 (4.0-10.0)
[2018-07-30 10:52] LABS: ALBUMIN 3.8 g/dl (3.4-5.0); ALK PHOS 85 U/L (45-117); ANION GAP 11 MMOL/L (8-16); BILIRUBIN,TOTAL 0.7 mg/dL (0.2-1); BLOOD UREA NITROGEN 14 mg/dL (7-18); CALCIUM 8.9 mg/dL (8.5-10.1); CHLORIDE 100 mmol/L (98-107); CO2 27 mmol/L (21-32); CREATININE 0.9 mg/dL (0.55-1.3); GLUCOSE,RANDOM 86 mg/dL (74-106); POTASSIUM 3.4 mmol/L (3.5-5.1); SGOT/AST 28 U/L (15-37); SGPT/ALT 41 U/L (13-61); SODIUM 139 mmol/L (136-145); TOT PROT 7.2 g/dl (6.4-8.2)
[2018-07-30] MEDS: MELATONIN 5 MG TABLETS PO PRN (22:12)
[2018-07-31] MEDS: CEPHALEXIN MONOHYDRATE 250 MG CAPSULE (FP) PO SCH ×4 (05:21→23:01)
[2018-07-31] MEDS: diazePAM 5 MG TABLET PO PRN ×2 (05:23→14:45)
[2018-07-31] MEDS ORDERED: METHADONE HCL 10 MG TABLET (FOR DETOX USE ONLY) PO ONE (10:00)
[2018-07-31] MEDS: NICOTINE 14 MG/24 HOURS TOPICAL PATCH TD SCH (10:13)
[2018-07-31] MEDS: PRENATAL VITAMINS W/ FOLIC ACID TABLET (FP) PO SCH (10:13)
[2018-07-31] MEDS: diazePAM 5 MG TABLET PO SCH ×2 (10:13→23:00)
[2018-07-31] MEDS: THIAMINE HCL 100 MG TABLET (FP) PO SCH (11:47)
[2018-07-31] MEDS: BACITRACIN 15 GM TUBE TOPICAL OINTMENT TP SCH (11:47)
--- NOTE | 2018-07-31 13:02 | PN ---
[facility] CIWA - CIWA Score Nausea/Vomitin-No Nausea/No Vomiting Muscle Tremors: 3 Anxiety: 3 Agitation: 3 Paroxysmal Sweats: 3 Orientation: 0-Oriented Tacttile Disturbances: 0-None Auditory Disturbances: 0-None Visual Disturbances: 0-None Headache: 0-None Present CIWA-Ar Total Score: 12 BHS COWS - Scale Resting Pulse: 1= [place] 81-100 Sweatin=Flushed/Facial Moisture Restless Observation: 1= Difficult to Sit Still Pupil Size: 0= Normal to Room Light Bone or Joint Aches: 2= Severe Diffuse Aches Runny Nose/ Eye Tearin= Runny Nose/Eyes GI Upset > 30mins: 0= None Tremor Observation of Outstretched Hands: 2= Slight Tremor Visible Yawning Observation: 2= >3x During Session Anxiety or Irritability: 2=Irritable/Anxious Goose Flesh Skin: 0=Smooth Skin COWS Score: 14 S Progress Note (SOAP) Subjective: weak sweats shakes interrupted sleep body aches Objective: 07/31/18 13:01 Vital Signs Temperature 98.1 F 07/31/18 09:04 Pulse Rate 82 07/31/18 09:04 Respiratory Rate 18 07/31/18 09:04 Blood Pressure 117/75 07/31/18 09:04 O2 Sat by Pulse Oximetry (%) Laboratory Tests 07/29/18 07/30/18 07/30/18 22:10 07:00 07:00 WBC 9.1 RBC 4.86 Hgb 14.5 Hct 42.4 MCV 87.3 MCH 29.9 MCHC 34.2 RDW 13.6 Plt Count 181 D MPV 10.4 Sodium Potassium Chloride Carbon Dioxide Anion Gap BUN Creatinine Creat Clearance w eGFR Random Glucose Calcium Total Bilirubin AST ALT Alkaline Phosphatase Total Protein Albumin Urine Color Yellow Urine Appearance Clear Urine pH 6.0 Ur Specific [place] 1.030 Urine Protein 1+ H Urine Glucose (UA) Negative Urine Ketones 2+ H Urine Blood Negative Urine Nitrite Negative Urine Bilirubin Negative Urine Urobilinogen 2.0 Ur Leukocyte Esterase Negative Urine WBC (Auto) 1 Urine RBC (Auto) None Urine Mucus Few HIV 1&2 Antibody Screen Negative HIV P24 Antigen Negative 07/30/18 07:00 WBC RBC Hgb Hct MCV MCH MCHC RDW Plt Count MPV Sodium 139 Potassium 3.4 L Chloride 100 Carbon Dioxide 27 Anion Gap 11 BUN 14 Creatinine 0.9 Creat Clearance w eGFR > 60 Random Glucose 86 Calcium 8.9 Total Bilirubin 0.7 AST 28 ALT 41 Alkaline Phosphatase 85 Total Protein 7.2 Albumin 3.8 Urine Color Urine Appearance Urine pH Ur Specific [place] Urine Protein Urine Glucose (UA) Urine Ketones Urine Blood Urine Nitrite Urine Bilirubin Urine Urobilinogen Ur Leukocyte Esterase Urine WBC (Auto) Urine RBC (Auto) Urine Mucus HIV 1&2 Antibody Screen HIV P24 Antigen labs noted low potassium 3.4 aaox2 ambulating no acute distress Assessment: 07/31/18 13:02 withdrawal sx Plan: continue detox increase fluids kdur ordered
[2018-07-31] MEDS: cloNIDine HCL 0.1 MG TABLET PO PRN (14:45)
[2018-07-31] MEDS ORDERED: POTASSIUM CHLORIDE TABS 20 MEQ TABLET.ER (FP) PO ONE (14:45)
[2018-08-01] MEDS: CEPHALEXIN MONOHYDRATE 250 MG CAPSULE (FP) PO SCH ×3 (05:50→18:38)
[2018-08-01] MEDS ORDERED: diazePAM 5 MG TABLET PO SCH (06:00)
--- NOTE | 2018-08-01 09:35 | PN ---
[facility] Progress Note (SOAP) Subjective: sweats shakes chills body aches Objective: 08/01/18 09:35 Vital Signs Temperature 97.9 F 08/01/18 06:00 Pulse Rate 73 08/01/18 06:00 Respiratory Rate 18 08/01/18 06:00 Blood Pressure 108/72 08/01/18 06:00 O2 Sat by Pulse Oximetry (%) Laboratory Tests 07/29/18 07/30/18 07/30/18 22:10 07:00 07:00 WBC 9.1 RBC 4.86 Hgb 14.5 Hct 42.4 MCV 87.3 MCH 29.9 MCHC 34.2 RDW 13.6 Plt Count 181 D MPV 10.4 Sodium Potassium Chloride Carbon Dioxide Anion Gap BUN Creatinine Creat Clearance w eGFR Random Glucose Calcium Total Bilirubin AST ALT Alkaline Phosphatase Total Protein Albumin Urine Color Yellow Urine Appearance Clear Urine pH 6.0 Ur Specific Man 1.030 Urine Protein 1+ H Urine Glucose (UA) Negative Urine Ketones 2+ H Urine Blood Negative Urine Nitrite Negative Urine Bilirubin Negative Urine Urobilinogen 2.0 Ur Leukocyte Esterase Negative Urine WBC (Auto) 1 Urine RBC (Auto) None Urine Mucus Few HIV 1&2 Antibody Screen Negative HIV P24 Antigen Negative 07/30/18 07:00 WBC RBC Hgb Hct MCV MCH MCHC RDW Plt Count MPV Sodium 139 Potassium 3.4 L Chloride 100 Carbon Dioxide 27 Anion Gap 11 BUN 14 Creatinine 0.9 Creat Clearance w eGFR > 60 Random Glucose 86 Calcium 8.9 Total Bilirubin 0.7 AST 28 ALT 41 Alkaline Phosphatase 85 Total Protein 7.2 Albumin 3.8 Urine Color Urine Appearance Urine pH Ur Specific Man Urine Protein Urine Glucose (UA) Urine Ketones Urine Blood Urine Nitrite Urine Bilirubin Urine Urobilinogen Ur Leukocyte Esterase Urine WBC (Auto) Urine RBC (Auto) Urine Mucus HIV 1&2 Antibody Screen HIV P24 Antigen aaox3 ambulating no acute distress Assessment: 08/01/18 09:52 withdrawal sx Plan: continue detox increase fluids baclofen tid d/c in am
[2018-08-01] MEDS ORDERED: BACITRACIN 0.9 GM PACKET TP SCH (10:00)
[2018-08-01] MEDS ORDERED: POTASSIUM CHLORIDE TABS 20 MEQ TABLET.ER (FP) PO SCH (10:00)
[2018-08-01] MEDS ORDERED: METHADONE HCL 10 MG TABLET (FOR DETOX USE ONLY) PO ONE (10:00)
[2018-08-01] MEDS: NICOTINE 14 MG/24 HOURS TOPICAL PATCH TD SCH (10:47)
[2018-08-01] MEDS: PRENATAL VITAMINS W/ FOLIC ACID TABLET (FP) PO SCH (10:47)
[2018-08-01] MEDS: diazePAM 5 MG TABLET PO PRN ×2 (10:52→15:42)
[2018-08-01] MEDS: THIAMINE HCL 100 MG TABLET (FP) PO SCH (11:00)
[2018-08-01] MEDS ORDERED: BACLOFEN 10 MG TABLET (FP) PO ONE (11:30)
[2018-08-01] MEDS ORDERED: BACLOFEN 10 MG TABLET (FP) PO SCH (14:00)
[2018-08-01 18:04] VITALS: BP 111/70; PULSE 101; TEMP 99
--- NOTE | 2018-08-01 19:18 | PN ---
S Progress Note Note: met w/ pt , discussed risks of leaving AMA , verbalizes understanding, insisting on leaving states wants to go home.
--- NOTE | 2018-08-01 19:19 | DS ---
[facility] Detox Discharge Summary Admission Date: 07/29/18 Discharge Date: 08/01/18 - Physical Exam Results Vital Signs: Vital Signs Temperature 99.0 F 08/01/18 18:03 Pulse Rate 101 H 08/01/18 18:03 Respiratory Rate 16 08/01/18 18:03 Blood Pressure 111/70 08/01/18 18:03 O2 Sat by Pulse Oximetry (%) - Treatment Hospital Course: Detox Protocol Followed - Medication Discharge Medications: Ambulatory Orders NK [No Known Home Medication] 03/20/17 - AMA Did Patient Leave Against Medical Advice: Yes
[2018-08-02] MEDS ORDERED: METHADONE HCL 5 MG TABLET (FOR DETOX USE ONLY) PO ONE (06:00)
== END 2018-08-01 06:34 | disposition home or self-care (01) | DRG 773 ==
LOC: YASAS 13:58 → Y6N 21:35
PROVIDERS: ADMIT Surgery; ATTEND Surgery
PROC: HZ2ZZZZ Detoxification Services for Substance Abuse Treatment (ICD-10-PCS; principal; 2018-07-29)
DX: F11.23 Opioid dependence with withdrawal (principal); F10.230 Alcohol dependence with withdrawal, uncomplicated; F17.210 Nicotine dependence, cigarettes, uncomplicated; L02.91 Cutaneous abscess, unspecified; E87.6 Hypokalemia
CPT/HCPCS: 36415; 80053; 81003; 81015; 85027; 87389; J0475; J0735; Q0162

== ENCOUNTER 2018-09-17 20:50 | Inpatient (IN) | payer OTHER ==
--- NOTE | 2018-09-17 21:36 | HP ---
COWS - Scale Resting Pulse: 2= [place] 101-120 Sweatin=Flushed/Facial Moisture Restless Observation: 0= Sits Still Pupil Size: 1= Pupils >than Normal Bone or Joint Aches: 4=Acute Joint/Muscle Pain Runny Nose/ Eye Tearin= Nasal Congestion GI Upset > 30mins: 2= Nausea/Diarrhea (diArrhea x 2) Tremor Observation: 2= Slight Tremor Visible Yawning Observation: 0= None Anxiety or Irritability: 0= None Goose Flesh Skin: 3=Piloerection COWS Score: 17 CIWA Score Nausea/Vomitin Muscle Tremors: 4-Moderate,w/Arms Extend Anxiety: 3 Agitation: 3 Paroxysmal Sweats: 2 Orientation: 0-Oriented Tacttile Disturbances: 0-None Auditory Disturbances: 0-None Visual Disturbances: 0-None Headache: 3-Moderate CIWA-Ar Total Score: 18 - Admission Criteria OASAS Guidelines: Admission for Medically Managed Detox: Requires at least one of the followin. CIWA greater than 12 2. Seizures within the past 24 hours 3. Delirium tremens within the past 24 hours 4. Hallucinations within the past 24 hours 5. Acute intervention needed for co occurring medical disorder 6. Acute intervention needed for co occurring psychiatric disorder 7. Severe withdrawal that cannot be handled at a lower level of care (continued vomiting, continued diarrhea, abnormal vital signs) requiring intravenous medication and/or fluids 8. Admission ROS [facility] Chief Complaint: Heroin and alcohol withdrawal symptoms Allergies/Adverse Reactions: Allergies Allergy/AdvReac Type Severity Reaction Status Date / Time No Known Allergies Allergy Verified 09/17/18 21:45 History of Present Illness: 28 years old male with 10 years of alcohol dependence and 2 years of heroin dependence is seeking admission to detox. Patient has been in multiple detox and reports insignificant period of sobriety. He has past medical history of depression and denies suicidal ideation at this time Exam Limitations: No Limitations - Ebola screening Have you traveled outside of the country in the last 21 days: No Have you had contact with anyone from an Ebola affected area: No Have you been sick,other than usual withdrawal symptoms: No Do you have a fever: No - Review of Systems Constitutional: Chills, Loss of Appetite, Night Sweats, Changes in sleep EENT: reports: Nose Congestion Respiratory: reports: No Symptoms reported Cardiac: reports: No Symptoms Reported GI: reports: Diarrhea, Poor Appetite, Poor Fluid Intake, Abdominal cramping : reports: No Symptoms Reported Musculoskeletal: reports: Back Pain, Joint Pain, Muscle Pain, Muscle Weakness Integumentary: reports: Dryness, Flushing Neuro: reports: Headache, Tingling, Tremors Endocrine: reports: No Symptoms Reported Hematology: reports: No Symptoms Reported Psychiatric: reports: Mood/Affect Appropiate, Orientated x3 Other Systems: Reviewed and Negative Patient History - Patient Medical History Hx Anemia: No Hx Asthma: No Hx Chronic Obstructive Pulmonary Disease (COPD): No Hx Cancer: No Hx Cardiac Disorders: No Hx Congestive Heart Failure: No Hx Hypertension: No Hx Hypercholesterolemia: No Hx Pacemaker: No HX Cerebrovascular Accident: No Hx Seizures: No Hx Dementia: No Hx Diabetes: No Hx Gastrointestinal Disorders: No Hx Liver Disease: No Hx Genitourinary Disorders: No Hx Sexually Transmitted Disorders: No Hx Renal Disease (ESRD): No Hx Thyroid Disease: No Hx Human Immunodeficiency Virus (HIV): No ( NEGATIVE 2019) Hx Hepatitis C: No ( NEGATIVE.) Hx Depression: No Hx Suicide Attempt: No (PATIENT DENIES CURRENT SI / HI.) Hx Bipolar Disorder: No Hx Schizophrenia: No - Patient Surgical History Past Surgical History: No - PPD History Documented Results: Negative w/proof Implanted On Prior [facility] Admission?: Yes Date: 08/20/17 PPD to be Administered?: No - Reproductive History Patient is a Female of Child Bearing Age (11 -55 yrs old): No (Male) - Smoking Cessation Smoking history: Current every day smoker Have you smoked in the past 12 months: Yes Aproximately how many cigarettes per day: 20 Cigars Per Day: 0 Hx Chewing Tobacco Use: No Initiated information on smoking cessation: Yes 'Breaking Loose' booklet given: 09/17/18 - Substance & Tx. History Hx Alcohol Use: Yes Hx Substance Use: Yes Substance Use Type: Alcohol, Marijuana, Opiates Hx Substance Use Treatment: Yes ([facility]) - Substances abused Alcohol Substance route: Oral Frequency: Daily Amount used: 1 pint of rum Age of first use: 18 Date of last use: 09/16/18 Heroin Substance route: Inhalation Frequency: Daily Amount used: 15 bags Age of first use: 24 Date of last use: 09/17/18 Family Disease History - Family Disease History Family Disease History: Diabetes: Grandparent, Sister Admission Physical Exam [facility] - Physical General Appearance: Yes: Moderate Distress, Tremorous, Irritable, Sweating, Anxious HEENTM: Yes: EOMI, Normal ENT Inspection, Normal Voice Respiratory: Yes: Lungs Clear, Normal Breath Sounds, No Respiratory Distress Neck: Yes: Supple Breast: Yes: Breast Exam Deferred Cardiology: Yes: Tachycardia Abdominal: Yes: Normal Bowel Sounds, Soft Genitourinary: Yes: Within Normal Limits Back: Yes: Normal Inspection Extremities: Yes: Tremors 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: Yes: Alert, Normal Mood/Affect Integumentary: Yes: Warm Lymphatic: Yes: Within Normal Limits - Diagnostic (1) Alcohol dependence with uncomplicated withdrawal Current Visit: Yes Status: Chronic (2) Opioid dependence with withdrawal Current Visit: Yes Status: Acute (3) Cannabis dependence, uncomplicated Current Visit: Yes Status: Chronic (4) Depression Current Visit: Yes Status: Chronic Qualifiers: Depression Type: unspecified Qualified Code(s): F32.9 - Major depressive disorder, single episode, unspecified (5) Nicotine dependence Current Visit: Yes Status: Chronic Qualifiers: Nicotine product type: cigarettes Substance use status: uncomplicated Qualified Code(s): F17.210 - Nicotine dependence, cigarettes, uncomplicated Cleared for Admission [facility] - Detox or Rehab [facility] Level of Care: Medically Managed Detox Regimen/Protocol: Methadone/Librium Inpatient Rehab Admission - Rehab Decision to Admit Inpatient rehab admission?: No
[2018-09-17 21:44] VITALS: BMI 27.3
[2018-09-17] MEDS ORDERED: IBUPROFEN 400 MG TABLET (FP) PO PRN (22:00)
[2018-09-17] MEDS ORDERED: MAGNESIUM CITRATE 300 ML BOTTLE PO PRN (22:00)
[2018-09-17] MEDS ORDERED: ACETAMINOPHEN 325 MG TABLET (FP) PO PRN ×2 (22:00)
[2018-09-17] MEDS ORDERED: NICOTINE POLACRILEX 2 MG GUM BUC PRN (22:00)
[2018-09-17] MEDS ORDERED: BISMUTH SUBSALICYLATE 524 MG/30 ML UD PO PRN (22:00)
[2018-09-17] MEDS ORDERED: METHOCARBAMOL 500 MG TABLET PO PRN (22:00)
[2018-09-17] MEDS ORDERED: MAG HYDROX/AL HYDROX/SIMETH 30 ML UNIT-DOSE CUP PO PRN (22:00)
[2018-09-17] MEDS ORDERED: MAGNESIUM HYDROX 2400MG/30ML ORAL SUSPENSION 30 ML CUP PO PRN (22:00)
[2018-09-17] MEDS ORDERED: MENTHOL/PHENOL 1 EACH UD MM PRN (22:00)
[2018-09-17] MEDS ORDERED: chlordiazePOXIDE HCL 25 MG CAPSULE PO PRN (22:06)
[2018-09-17] MEDS ORDERED: cloNIDine HCL 0.1 MG TABLET PO PRN (22:06)
[2018-09-17] MEDS: THIAMINE HCL 100 MG TABLET (FP) PO SCH (22:44)
[2018-09-17] MEDS: MELATONIN 5 MG TABLETS PO PRN (22:45)
[2018-09-17] MEDS ORDERED: METHADONE HCL 10 MG TABLET (FOR DETOX USE ONLY) PO ONE (23:00)
[2018-09-18] MEDS: chlordiazePOXIDE HCL 25 MG CAPSULE PO SCH ×4 (00:01→16:53)
[2018-09-18] MEDS ORDERED: METHADONE HCL 10 MG TABLET (FOR DETOX USE ONLY) PO ONE (10:00)
[2018-09-18] MEDS: NICOTINE 14 MG/24 HOURS TOPICAL PATCH TD SCH (10:07)
[2018-09-18] MEDS: PRENATAL VITAMINS W/ FOLIC ACID TABLET (FP) PO SCH (10:07)
--- NOTE | 2018-09-18 11:30 | EKG ---
Test Reason : Blood Pressure : / mmHG Vent. Rate : 080 BPM Atrial Rate : 080 BPM P-R Int : 162 ms QRS Dur : 086 ms QT Int : 378 ms P-R-T Axes : 066 070 031 degrees QTc Int : 435 ms NORMAL SINUS RHYTHM WITH SINUS ARRHYTHMIA NORMAL ECG WHEN COMPARED WITH ECG OF 12-JUL-2018 10:07, NO SIGNIFICANT CHANGE WAS FOUND Confirmed by SALVATORE KELLEY MD ([id number]) on 09/18/2018 11:30:21 AM Referred By: Confirmed By:SALVATORE KELLEY MD
--- NOTE | 2018-09-18 17:09 | PN ---
S CIWA - CIWA Score Nausea/Vomitin-No Nausea/No Vomiting Muscle Tremors: 2 Anxiety: 0-No Anxiety, at Ease Agitation: 0-Normal Activity Paroxysmal Sweats: 3 Orientation: 0-Oriented Tacttile Disturbances: 3-Moderate Itch/Numb/Burn Auditory Disturbances: 0-None Visual Disturbances: 3-Moderate Sensitivity Headache: 0-None Present CIWA-Ar Total Score: 11 S COWS - Scale Resting Pulse: 0= [place] 80 or Below Sweatin= Chills/Flushing Restless Observation: 0= Sits Still Pupil Size: 0= Normal to Room Light Bone or Joint Aches: 1= Mild Discomfort Runny Nose/ Eye Tearin= None GI Upset > 30mins: 0= None Tremor Observation of Outstretched Hands: 2= Slight Tremor Visible Yawning Observation: 1= 1-2x During Session Anxiety or Irritability: 2=Irritable/Anxious Goose Flesh Skin: 3=Piloerection COWS Score: 10 S Progress Note (SOAP) Subjective: Stomach Cramping, Hot / Cold Sensations, Chills, Tremors. Objective: PATIENT A & O X 3, OBSERVED AMBULATING ON UNIT UNASSISTED. IN NO ACUTE DISTRESS. 09/18/18 17:06 Vital Signs Temperature 97.6 F 09/18/18 13:16 Pulse Rate 62 09/18/18 13:16 Respiratory Rate 18 09/18/18 13:16 Blood Pressure 92/58 L 09/18/18 13:16 O2 Sat by Pulse Oximetry (%) PATIENT REFUSED TO HAVE ADMISSION LABS DRAWN. 09/18/18 17:07 Assessment: 09/18/18 17:07 WITHDRAWAL SYMPTOMS. Plan: CONTINUE DETOX. INCREASE DAILY PO FLUID / WATER INTAKE.
[2018-09-18] MEDS: diazePAM 5 MG TABLET PO SCH (22:07)
[2018-09-18] MEDS: THIAMINE HCL 100 MG TABLET (FP) PO SCH (22:07)
[2018-09-18] MEDS ORDERED: chlordiazePOXIDE HCL 25 MG CAPSULE PO SCH (23:00)
[2018-09-19] MEDS: diazePAM 5 MG TABLET PO SCH ×3 (06:55→22:23)
[2018-09-19] MEDS ORDERED: METHADONE HCL 10 MG TABLET (FOR DETOX USE ONLY) PO ONE (10:00)
[2018-09-19] MEDS: diazePAM 5 MG TABLET PO PRN ×2 (11:20→19:32)
[2018-09-19] MEDS: PRENATAL VITAMINS W/ FOLIC ACID TABLET (FP) PO SCH (11:20)
[2018-09-19] MEDS: NICOTINE 14 MG/24 HOURS TOPICAL PATCH TD SCH (11:21)
--- NOTE | 2018-09-19 16:49 | PN ---
S CIWA - CIWA Score Nausea/Vomitin-No Nausea/No Vomiting Muscle Tremors: None Anxiety: 2 Agitation: 1-Slight > Activity Paroxysmal Sweats: 3 Orientation: 0-Oriented Tacttile Disturbances: 2-Mild Itch/Numbness/Burn Auditory Disturbances: 0-None Visual Disturbances: 2-Mild Sensitivity Headache: 0-None Present CIWA-Ar Total Score: 10 BHS COWS - Scale Resting Pulse: 0= [place] 80 or Below Sweatin= Chills/Flushing Restless Observation: 1= Difficult to Sit Still Pupil Size: 0= Normal to Room Light Bone or Joint Aches: 0= None Runny Nose/ Eye Tearin= Nasal Congestion GI Upset > 30mins: 1= Stomach Cramp Tremor Observation of Outstretched Hands: 2= Slight Tremor Visible Yawning Observation: 1= 1-2x During Session Anxiety or Irritability: 2=Irritable/Anxious Goose Flesh Skin: 3=Piloerection COWS Score: 12 S Progress Note (SOAP) Subjective: Stomach Cramping, Hot / Cold Sensations, Sweating, Anxious. Objective: PATIENT A & O X 3, OBSERVED AMBULATING ON UNIT UNASSISTED. IN NO ACUTE DISTRESS. 09/19/18 16:50 Vital Signs Temperature 96.9 F L 09/19/18 14:09 Pulse Rate 78 09/19/18 14:09 Respiratory Rate 18 09/19/18 14:09 Blood Pressure 114/78 09/19/18 14:09 O2 Sat by Pulse Oximetry (%) PATIENT REFUSED TO HAVE ADMISSION LABS DRAWN. 09/19/18 16:50 Assessment: 09/19/18 16:50 WITHDRAWAL SYMPTOMS. Plan: CONTINUE DETOX. INCREASE DAILY PO FLUID INTAKE.
[2018-09-19] MEDS: THIAMINE HCL 100 MG TABLET (FP) PO SCH (22:23)
[2018-09-19] MEDS ORDERED: chlordiazePOXIDE HCL 10 MG CAPSULE PO SCH (23:00)
[2018-09-19] MEDS ORDERED: chlordiazePOXIDE HCL 10 MG CAPSULE PO PRN (23:00)
[2018-09-19] MEDS: MELATONIN 5 MG TABLETS PO PRN (23:28)
[2018-09-20] MEDS: PRENATAL VITAMINS W/ FOLIC ACID TABLET (FP) PO SCH (09:09)
[2018-09-20] MEDS: NICOTINE 14 MG/24 HOURS TOPICAL PATCH TD SCH (09:11)
[2018-09-20] MEDS ORDERED: diazePAM 5 MG TABLET PO SCH (10:00)
[2018-09-20] MEDS ORDERED: METHADONE HCL 10 MG TABLET (FOR DETOX USE ONLY) PO ONE (10:00)
[2018-09-20 14:32] VITALS: BP 119/83; PULSE 72; TEMP 96.9
[2018-09-20] MEDS ORDERED: hydrOXYzine PAMOATE 50 MG CAPSULE (FP) PO ONE (14:38)
--- NOTE | 2018-09-20 15:04 | PN ---
[facility] CIWA - CIWA Score Nausea/Vomitin-Mild Nausea/No Vomiting Muscle Tremors: 1-None Visible, but [place] Anxiety: 1-Mildly Anxious Agitation: 1-Slight > Activity Paroxysmal Sweats: 1-Minimal Palms Moist Orientation: 0-Oriented Tacttile Disturbances: 0-None Auditory Disturbances: 0-None Visual Disturbances: 0-None Headache: 1-Very Mild CIWA-Ar Total Score: 6 BHS COWS - Scale Resting Pulse: 0= [place] 80 or Below Sweatin= Chills/Flushing Restless Observation: 0= Sits Still Pupil Size: 0= Normal to Room Light Bone or Joint Aches: 1= Mild Discomfort Runny Nose/ Eye Tearin= Nasal Congestion GI Upset > 30mins: 1= Stomach Cramp Tremor Observation of Outstretched Hands: 1= Tremor [place], Not Seen Yawning Observation: 1= 1-2x During Session Anxiety or Irritability: 2=Irritable/Anxious Goose Flesh Skin: 0=Smooth Skin COWS Score: 8 [facility] Progress Note (SOAP) Subjective: anxious vistaril 50 mg x 1 Objective: 09/20/18 15:04 Vital Signs Temperature 96.9 F L 09/20/18 14:32 Pulse Rate 72 09/20/18 14:32 Respiratory Rate 18 09/20/18 14:32 Blood Pressure 119/83 09/20/18 14:32 O2 Sat by Pulse Oximetry (%) 09/20/18 15:05 last lab 07/2018 Assessment: 09/20/18 15:05 mild withdrawal sx Plan: continue detox
--- NOTE | 2018-09-20 15:49 | DS ---
[facility] Detox Discharge Summary Admission Date: 09/17/18 Discharge Date: 09/20/18 - History Present History: Alcohol Dependence, Opioid Dependence Additional Comments: 28 years old male admitted on 09/17/18 for alcohol and opiate withdrawal stabilization feeling better wants to go home today alert no acute distress denies suicidal ideation Pertinent Past History: bring in medication list and lab report to aftercare appointment - Physical Exam Results Vital Signs: Vital Signs Temperature 96.9 F L 09/20/18 14:32 Pulse Rate 72 09/20/18 14:32 Respiratory Rate 18 09/20/18 14:32 Blood Pressure 119/83 09/20/18 14:32 O2 Sat by Pulse Oximetry (%) Pertinent Admission Physical Exam Findings: alcohol and opiate withdrawal sx - Treatment Hospital Course: Detox Protocol Followed, Detoxed Safely, Responded well, Discharged Condition Good, Rehab Referral Accepted Patient has Accepted a Rehab Referral to: new focus - Medication Discharge Medications: Ambulatory Orders NK [No Known Home Medication] 03/20/17 - Diagnosis (1) Opioid dependence with withdrawal Current Visit: Yes Status: Acute (2) Alcohol dependence with uncomplicated withdrawal Current Visit: Yes Status: Acute (3) Nicotine dependence Current Visit: Yes Status: Acute Qualifiers: Nicotine product type: cigarettes Substance use status: in withdrawal Qualified Code(s): F17.213 - Nicotine dependence, cigarettes, with withdrawal - AMA Did Patient Leave Against Medical Advice: No
[2018-09-20] MEDS ORDERED: chlordiazePOXIDE HCL 10 MG CAPSULE PO SCH (23:00)
[2018-09-21] MEDS ORDERED: METHADONE HCL 5 MG TABLET (FOR DETOX USE ONLY) PO ONE (06:00)
[2018-09-21] MEDS ORDERED: diazePAM 5 MG TABLET PO SCH (06:00)
== END 2018-09-20 16:15 | disposition home or self-care (01) | DRG 773 ==
LOC: YASAS 20:50 → Y3N 22:21
PROVIDERS: ADMIT Surgery; ATTEND Surgery
PROC: HZ2ZZZZ Detoxification Services for Substance Abuse Treatment (ICD-10-PCS; principal; 2018-09-17)
DX: F10.230 Alcohol dependence with withdrawal, uncomplicated (principal); F11.23 Opioid dependence with withdrawal; F12.20 Cannabis dependence, uncomplicated; F17.213 Nicotine dependence, cigarettes, with withdrawal; F32.9 Major depressive disorder, single episode, unspecified
CPT/HCPCS: 93005; 93010; J0735

== ENCOUNTER 2018-11-30 15:11 | Inpatient (IN) | payer OTHER ==
[2018-11-30 19:10] VITALS: BMI 26.6
--- NOTE | 2018-11-30 21:24 | HP ---
COWS - Scale Resting Pulse: 1= [place] 81-100 Sweatin=Flushed/Facial Moisture Restless Observation: 5= Unable to Sit Still Pupil Size: 1= Pupils >than Normal Bone or Joint Aches: 4=Acute Joint/Muscle Pain Runny Nose/ Eye Tearin= Constantly Teary/Runny GI Upset > 30mins: 1= Stomach Cramp Tremor Observation: 0= None Yawning Observation: 1= 1-2x During Session Anxiety or Irritability: 2=Irritable/Anxious Goose Flesh Skin: 0=Smooth Skin COWS Score: 21 CIWA Score Nausea/Vomitin-No Nausea/No Vomiting Muscle Tremors: None Anxiety: 4-Mod. Anxious/Guarded Agitation: 4-Moderately Restless Paroxysmal Sweats: 3 Orientation: 0-Oriented Tacttile Disturbances: 0-None Auditory Disturbances: 0-None Visual Disturbances: 0-None Headache: 1-Very Mild CIWA-Ar Total Score: 12 - Admission Criteria OAS Guidelines: Admission for Medically Managed Detox: Requires at least one of the followin. CIWA greater than 12 2. Seizures within the past 24 hours 3. Delirium tremens within the past 24 hours 4. Hallucinations within the past 24 hours 5. Acute intervention needed for co occurring medical disorder 6. Acute intervention needed for co occurring psychiatric disorder 7. Severe withdrawal that cannot be handled at a lower level of care (continued vomiting, continued diarrhea, abnormal vital signs) requiring intravenous medication and/or fluids 8. Patient presents the following: CIWA greater than 12 Admission Criteria Met: Admission criteria met Admission [facility] Chief Complaint: c/o withdrawal sx's Allergies/Adverse Reactions: Allergies Allergy/AdvReac Type Severity Reaction Status Date / Time chlordiazepoxide Allergy Intermediate Hives Verified 11/30/18 18:59 [From Librium] History of Present Illness: 28 Y.O MALE WITH OPIOID AND ALCOHOL DEPENDENCE HERE FOR DETOX. PRESENTS TODAY WITH C/O WITHDRAWAL SXS. COWS 21/CIWA 12. SELF REFERRED. LAST HERE 08/2018. REPORTS RELAPSING SOON AFTER. DENIES ANY SIGNIFICANT PERIOD OF CLEAN TIME. DENIES HX/O SEIZURE, DRUG OVERDOSE, SI/HI, AVH. LIVES WITH FAMILY, UNEMPLOYED, DENIES LEGALS. Exam Limitations: No Limitations - Ebola screening Have you traveled outside of the country in the last 21 days: No (N) Have you had contact with anyone from an Ebola affected area: No Have you been sick,other than usual withdrawal symptoms: No Do you have a fever: No - Review of Systems Constitutional: Chills, Loss of Appetite, Night Sweats, Changes in sleep EENT: reports: Other (WATERY EYES RUNNY NOSE) Respiratory: reports: No Symptoms reported Cardiac: reports: No Symptoms Reported GI: reports: Poor Fluid Intake, Abdominal cramping, Tarry Stools : reports: No Symptoms Reported Musculoskeletal: reports: Back Pain, Joint Pain, Neck Pain Integumentary: reports: Sweating Neuro: reports: Weakness (WEAKNESS) Endocrine: reports: No Symptoms Reported Hematology: reports: No Symptoms Reported Psychiatric: reports: Orientated x3, Agitated (IRRITABLE), Anxious Other Systems: Reviewed and Negative Patient History - Patient Medical History Hx Anemia: No Hx Asthma: No Hx Chronic Obstructive Pulmonary Disease (COPD): No Hx Cancer: No Hx Cardiac Disorders: No Hx Congestive Heart Failure: No Hx Hypertension: No Hx Hypercholesterolemia: No Hx Pacemaker: No HX Cerebrovascular Accident: No Hx Seizures: No Hx Dementia: No Hx Diabetes: No Hx Gastrointestinal Disorders: No Hx Liver Disease: No Hx Genitourinary Disorders: No Hx Sexually Transmitted Disorders: No Hx Renal Disease (ESRD): No Hx Thyroid Disease: No Hx Human Immunodeficiency Virus (HIV): No ( NEGATIVE 2019) Hx Hepatitis C: No ( ) Hx Depression: No Hx Suicide Attempt: No Hx Bipolar Disorder: No Hx Schizophrenia: No Other Medical History: DENIES - Patient Surgical History Past Surgical History: No Hx Neurologic Surgery: No Hx Cataract Extraction: No Hx Cardiac Surgery: No Hx Lung Surgery: No Hx Breast Surgery: No Hx Breast Biopsy: No Hx Abdominal Surgery: No Hx Appendectomy: No Hx Cholecystectomy: No Hx Genitourinary Surgery: No Hx Section: No Hx Orthopedic Surgery: No Anesthesia Reaction: No - PPD History Previous Implant?: Yes Date: 08/20/17 Results: 0MM PPD to be Administered?: Yes - Smoking Cessation Smoking history: Current every day smoker Have you smoked in the past 12 months: Yes Aproximately how many cigarettes per day: 20 Cigars Per Day: 0 Hx Chewing Tobacco Use: No Initiated information on smoking cessation: Yes 'Breaking Loose' booklet given: 11/30/18 - Substance & Tx. History Hx Alcohol Use: Yes Hx Substance Use: Yes Substance Use Type: Alcohol, Heroin, Marijuana Hx Substance Use Treatment: Yes ([facility]) - Substances abused Heroin Substance route: Inhalation Frequency: Daily Amount used: 10-15bags Age of first use: 24 Date of last use: 11/29/18 Alcohol Other (specify): VODKA/RUM Substance route: Oral Frequency: Daily Amount used: 1 pint of rum Age of first use: 18 Date of last use: 11/29/18 Marijuana/Hashish Substance route: Smoking Frequency: 3-6 times per week Amount used: 1 bag Age of first use: 18 Date of last use: 11/27/18 Family Disease History - Family Disease History Family Disease History: Diabetes: Grandparent, Sister Admission Physical Exam [facility] - Vital Signs Vital Signs: Vital Signs - 24 hr 11/30/18 11/30/18 19:01 20:20 Temperature 99.5 F 99.5 F Pulse Rate 88 88 Respiratory 17 17 Rate Blood Pressure 147/91 147/91 - Physical General Appearance: Yes: Moderate Distress, Tremorous (felt), Irritable, Sweating, Anxious HEENTM: Yes: EOMI, Normocephalic, Normal Voice, Pharynx Normal, Nasal Congestion , Rhinorrhea, Other (dialated pupils watery eyes) Respiratory: Yes: Chest Non-Tender, Lungs Clear, Normal Breath Sounds, No Respiratory Distress, No Accessory Muscle Use Neck: Yes: No masses,lesions,Nodules, Supple, Trachea in good position Breast: Yes: Breast Exam Deferred Cardiology: Yes: Regular Rhythm, Regular Rate, S1, S2 Abdominal: Yes: Soft, Increased Bowel Sounds, Tenderness (llq) Genitourinary: Yes: Within Normal Limits Back: Yes: Normal Inspection Musculoskeletal: Yes: full range of Motion, Gait Steady Extremities: Yes: Normal Capillary Refill, Normal Range of Motion, Non-Tender, Tremors (felt) 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: Yes: Fully Oriented, Alert, Motor Strength 5/5, Numbness (left index finger/middle finger) Integumentary: Yes: [place]ammy Lymphatic: Yes: Within Normal Limits - Diagnostic (1) At risk for dehydration due to poor fluid intake Current Visit: Yes Status: Acute (2) Depressed affect Current Visit: Yes Status: Suspected Comment: declines psych consult (3) Alcohol dependence with uncomplicated withdrawal Current Visit: Yes Status: Acute (4) Nicotine dependence Current Visit: Yes Status: Chronic Qualifiers: Nicotine product type: cigarettes Substance use status: in withdrawal Qualified Code(s): F17.213 - Nicotine dependence, cigarettes, with withdrawal (5) Opioid dependence with withdrawal Current Visit: Yes Status: Acute (6) Cannabis dependence, uncomplicated Current Visit: Yes Status: Acute Cleared for Admission S - Detox or Rehab [facility] Level of Care: Medically Managed Detox Regimen/Protocol: Methadone/Librium Claeared for Rehab Admission: No Breathalyzer - Breathalyzer Breathalyzer: 0 Urine Drug Screen - Test Device Lot number: [id number] Expiration date: 09/22/20 - Control Is test valid?: Yes - Results Drug screen NEGATIVE: No Urine drug screen results: THC-Marijuana, FEN-Fentanyl Inpatient Rehab Admission - Rehab Decision to Admit Inpatient rehab admission?: No
[2018-11-30] MEDS ORDERED: P-EPHED 60MG/TRIPROLIDI 2.5MG TABLET PO PRN (21:33)
[2018-11-30] MEDS ORDERED: MAG HYDROX/AL HYDROX/SIMETH 30 ML UNIT-DOSE CUP PO PRN (21:33)
[2018-11-30] MEDS ORDERED: ONDANSETRON *ODT* 4 MG TABLET SL PRN (21:33)
[2018-11-30] MEDS ORDERED: guaiFENesin 200 MG/10 ML 10 ML UNIT-DOSE CUPS PO PRN (21:33)
[2018-11-30] MEDS ORDERED: METHADONE HCL 10 MG TABLET (FOR DETOX USE ONLY) PO ONE (21:33)
[2018-11-30] MEDS ORDERED: MAGNESIUM CITRATE 300 ML BOTTLE PO PRN (21:33)
[2018-11-30] MEDS ORDERED: NALOXONE HCL 0.4 MG/ML VIAL IVPUSH PRN (21:33)
[2018-11-30] MEDS ORDERED: BISMUTH SUBSALICYLATE 524 MG/30 ML UD PO PRN (21:33)
[2018-11-30] MEDS ORDERED: MENTHOL/PHENOL 1 EACH UD MM PRN (21:33)
[2018-11-30] MEDS ORDERED: ACETAMINOPHEN 325 MG TABLET (FP) PO PRN ×2 (21:33)
[2018-11-30] MEDS ORDERED: cloNIDine HCL 0.1 MG TABLET PO PRN (21:33)
[2018-11-30] MEDS ORDERED: hydrOXYzine PAMOATE 25 MG CAPSULE (FP) PO PRN (21:33)
[2018-11-30] MEDS ORDERED: METHOCARBAMOL 500 MG TABLET PO PRN (21:33)
[2018-11-30] MEDS ORDERED: DICYCLOMINE HCL 10 MG CAPSULE PO PRN (21:33)
[2018-11-30] MEDS ORDERED: MAGNESIUM HYDROX 2400MG/30ML ORAL SUSPENSION 30 ML CUP PO PRN (21:33)
[2018-11-30] MEDS ORDERED: IBUPROFEN 400 MG TABLET (FP) PO PRN ×2 (21:33)
[2018-11-30] MEDS: diazePAM 5 MG TABLET PO SCH (22:51)
[2018-11-30] MEDS: THIAMINE HCL 100 MG TABLET (FP) PO SCH (22:53)
[2018-11-30] MEDS: MELATONIN 5 MG TABLETS PO PRN (22:53)
[2018-12-01] MEDS: diazePAM 5 MG TABLET PO SCH ×3 (06:43→22:30)
[2018-12-01] MEDS ORDERED: METHADONE HCL 10 MG TABLET (FOR DETOX USE ONLY) ONE (09:39)
[2018-12-01] MEDS ORDERED: METHADONE HCL 5 MG TABLET (FOR DETOX USE ONLY) ONE (09:40)
[2018-12-01] MEDS ORDERED: METHADONE (DETOX) 20 MG, METHADONE (DETOX) 5 MG PO ONE (10:00)
[2018-12-01] MEDS: PRENATAL VITAMINS W/ FOLIC ACID TABLET (FP) PO SCH (10:34)
[2018-12-01] MEDS: NICOTINE 21 MG/24 HOURS TOPICAL PATCH TD SCH (10:35)
--- NOTE | 2018-12-01 11:40 | PN ---
S CIWA - CIWA Score Nausea/Vomitin-Mild Nausea/No Vomiting Muscle Tremors: 4-Moderate,w/Arms Extend Anxiety: 3 Agitation: 2 Paroxysmal Sweats: 1-Minimal Palms Moist Orientation: 1-Uncertain about Date Tacttile Disturbances: 1-Very Mild Itch/Numbness Auditory Disturbances: 0-None Visual Disturbances: 0-None Headache: 1-Very Mild CIWA-Ar Total Score: 14 BHS COWS - Scale Resting Pulse: 0= [place] 80 or Below Sweatin= Chills/Flushing Restless Observation: 0= Sits Still Pupil Size: 0= Normal to Room Light Bone or Joint Aches: 2= Severe Diffuse Aches Runny Nose/ Eye Tearin= Nasal Congestion GI Upset > 30mins: 2= Nausea/Diarrhea Tremor Observation of Outstretched Hands: 2= Slight Tremor Visible Yawning Observation: 2= >3x During Session Anxiety or Irritability: 2=Irritable/Anxious Goose Flesh Skin: 3=Piloerection COWS Score: 15 S Progress Note (SOAP) Subjective: body aches tremor headaches Objective: 12/01/18 11:42 Vital Signs Temperature 98.2 F 12/01/18 09:09 Pulse Rate 69 12/01/18 09:09 Respiratory Rate 18 12/01/18 09:09 Blood Pressure 115/84 12/01/18 09:09 O2 Sat by Pulse Oximetry (%) 12/01/18 11:43 lab see 08/2018 result Assessment: 12/01/18 11:43 alcohol withdrawal sx Plan: continue alcohol detox
[2018-12-01] MEDS: THIAMINE HCL 100 MG TABLET (FP) PO SCH (22:30)
[2018-12-01] MEDS: MELATONIN 5 MG TABLETS PO PRN (22:30)
[2018-12-01 23:47] LABS: HYALINE CASTS 23 /lpf (0-8); PH,URINE 6.5 (5.0-8.0); URINE APPEARANCE CLEAR; URINE BACTERIA 5.7 /hpf (NEGATIVE); URINE BILIRUBIN NEGATIVE (NEGATIVE); URINE COLOR YELLOW; URINE GLUCOSE (UA) NEGATIVE (NEGATIVE); URINE KETONE NEGATIVE (NEGATIVE); URINE LEUK ESTERASE 2+ (NEGATIVE); URINE NITRITE NEGATIVE (NEGATIVE); URINE PROTEIN NEGATIVE (NEGATIVE); URINE RBC 1 /hpf (0-4); URINE UROBILINOGEN 0.2 mg/dL (0.2-1.0); URINE WBC 12 /hpf (0-5)
[2018-12-02] MEDS: diazePAM 5 MG TABLET PO SCH ×2 (06:03→17:49)
[2018-12-02] MEDS ORDERED: METHADONE HCL 10 MG TABLET (FOR DETOX USE ONLY) PO ONE (10:00)
[2018-12-02] MEDS: PRENATAL VITAMINS W/ FOLIC ACID TABLET (FP) PO SCH (10:31)
[2018-12-02] MEDS: NICOTINE 21 MG/24 HOURS TOPICAL PATCH TD SCH (10:31)
[2018-12-02] MEDS: diazePAM 5 MG TABLET PO PRN ×2 (10:51→21:21)
[2018-12-02] MEDS ORDERED: COLLOIDAL OATMEAL 1 BAR EACH TP PRN (11:18)
--- NOTE | 2018-12-02 11:19 | PN ---
S CIWA - CIWA Score Nausea/Vomitin-Mild Nausea/No Vomiting Muscle Tremors: 2 Anxiety: 3 Agitation: 4-Moderately Restless Paroxysmal Sweats: 1-Minimal Palms Moist Orientation: 1-Uncertain about Date Tacttile Disturbances: 1-Very Mild Itch/Numbness Auditory Disturbances: 0-None Visual Disturbances: 0-None Headache: 0-None Present CIWA-Ar Total Score: 13 S COWS - Scale Resting Pulse: 0= [place] 80 or Below Sweatin= Chills/Flushing Restless Observation: 0= Sits Still Pupil Size: 0= Normal to Room Light Bone or Joint Aches: 1= Mild Discomfort Runny Nose/ Eye Tearin= Nasal Congestion GI Upset > 30mins: 2= Nausea/Diarrhea Tremor Observation of Outstretched Hands: 2= Slight Tremor Visible Yawning Observation: 2= >3x During Session Anxiety or Irritability: 2=Irritable/Anxious Goose Flesh Skin: 0=Smooth Skin COWS Score: 11 S Progress Note (SOAP) Subjective: tremor indigestion body aches Objective: 12/02/18 11:19 Vital Signs Temperature 98.3 F 12/02/18 09:21 Pulse Rate 74 12/02/18 09:21 Respiratory Rate 18 12/02/18 09:21 Blood Pressure 118/81 12/02/18 09:21 O2 Sat by Pulse Oximetry (%) Laboratory Last Values Urine Color Yellow 12/01/18 23:36 Urine Appearance Clear 12/01/18 23:36 Urine pH 6.5 (5.0-8.0) 12/01/18 23:36 Ur Specific Pease 1.020 (1.010-1.035) 12/01/18 23:36 Urine Protein Negative (NEGATIVE) 12/01/18 23:36 Urine Glucose (UA) Negative (NEGATIVE) 12/01/18 23:36 Urine Ketones Negative (NEGATIVE) 12/01/18 23:36 Urine Blood Negative (NEGATIVE) 12/01/18 23:36 Urine Nitrite Negative (NEGATIVE) 12/01/18 23:36 Urine Bilirubin Negative (NEGATIVE) 12/01/18 23:36 Urine Urobilinogen 0.2 mg/dL (0.2-1.0) 12/01/18 23:36 Ur Leukocyte Esterase 2+ (NEGATIVE) H 12/01/18 23:36 Urine WBC (Auto) 12 /hpf (0-5) 12/01/18 23:36 Urine RBC (Auto) 1 /hpf (0-4) 12/01/18 23:36 Urine Casts (Auto) 23 /lpf (0-8) 12/01/18 23:36 U Epithel Cells (Auto) 2.0 /HPF (0-5/HPF) 12/01/18 23:36 Urine Bacteria (Auto) 5.7 /hpf (NEGATIVE) 12/01/18 23:36 12/02/18 11:19 see 12/02/18 11:20 08/2018 Assessment: 12/02/18 11:20 alcohol and opiate withdrawal sx Plan: continue alcohol and opiate detox
[2018-12-02] MEDS: THIAMINE HCL 100 MG TABLET (FP) PO SCH (21:21)
[2018-12-02] MEDS: MELATONIN 5 MG TABLETS PO PRN (21:21)
[2018-12-03] MEDS ORDERED: diazePAM 5 MG TABLET PO ONE (06:00)
[2018-12-03] MEDS ORDERED: METHADONE HCL 10 MG TABLET (FOR DETOX USE ONLY) ONE (09:51)
[2018-12-03] MEDS ORDERED: METHADONE HCL 5 MG TABLET (FOR DETOX USE ONLY) ONE (09:51)
[2018-12-03] MEDS ORDERED: METHADONE (DETOX) 10 MG, METHADONE (DETOX) 5 MG PO ONE (10:00)
[2018-12-03] MEDS: NICOTINE 21 MG/24 HOURS TOPICAL PATCH TD SCH (10:04)
[2018-12-03] MEDS: PRENATAL VITAMINS W/ FOLIC ACID TABLET (FP) PO SCH (10:04)
--- NOTE | 2018-12-03 12:42 | PN ---
S CIWA - CIWA Score Nausea/Vomitin-Mild Nausea/No Vomiting Muscle Tremors: 2 Anxiety: 2 Agitation: 2 Paroxysmal Sweats: 1-Minimal Palms Moist Orientation: 1-Uncertain about Date Tacttile Disturbances: 1-Very Mild Itch/Numbness Auditory Disturbances: 0-None Visual Disturbances: 0-None Headache: 0-None Present CIWA-Ar Total Score: 10 BHS COWS - Scale Resting Pulse: 0= [place] 80 or Below Sweatin= Chills/Flushing Restless Observation: 0= Sits Still Pupil Size: 0= Normal to Room Light Bone or Joint Aches: 1= Mild Discomfort Runny Nose/ Eye Tearin= Nasal Congestion GI Upset > 30mins: 2= Nausea/Diarrhea Tremor Observation of Outstretched Hands: 2= Slight Tremor Visible Yawning Observation: 1= 1-2x During Session Anxiety or Irritability: 2=Irritable/Anxious Goose Flesh Skin: 0=Smooth Skin COWS Score: 10 S Progress Note (SOAP) Subjective: 28 years old male admitted on 11/30/18 for alcohol and opiate withdrawal sx discuss medication assisted treatment program as well as community support approach mild indigestion tolerate food and fluid well abdomen soft around none tender + bowel sound Objective: 12/03/18 12:44 Vital Signs Temperature 96.8 F L 12/03/18 09:18 Pulse Rate 80 12/03/18 09:18 Respiratory Rate 18 12/03/18 09:18 Blood Pressure 115/82 12/03/18 09:18 O2 Sat by Pulse Oximetry (%) Laboratory Last Values Urine Color Yellow 12/01/18 23:36 Urine Appearance Clear 12/01/18 23:36 Urine pH 6.5 (5.0-8.0) 12/01/18 23:36 Ur Specific [place] 1.020 (1.010-1.035) 12/01/18 23:36 Urine Protein Negative (NEGATIVE) 12/01/18 23:36 Urine Glucose (UA) Negative (NEGATIVE) 12/01/18 23:36 Urine Ketones Negative (NEGATIVE) 12/01/18 23:36 Urine Blood Negative (NEGATIVE) 12/01/18 23:36 Urine Nitrite Negative (NEGATIVE) 12/01/18 23:36 Urine Bilirubin Negative (NEGATIVE) 12/01/18 23:36 Urine Urobilinogen 0.2 mg/dL (0.2-1.0) 12/01/18 23:36 Ur Leukocyte Esterase 2+ (NEGATIVE) H 12/01/18 23:36 Urine WBC (Auto) 12 /hpf (0-5) 12/01/18 23:36 Urine RBC (Auto) 1 /hpf (0-4) 12/01/18 23:36 Urine Casts (Auto) 23 /lpf (0-8) 12/01/18 23:36 U Epithel Cells (Auto) 2.0 /HPF (0-5/HPF) 12/01/18 23:36 Urine Bacteria (Auto) 5.7 /hpf (NEGATIVE) 12/01/18 23:36 lab noted 12/03/18 12:44 lab see 08/2018 result Assessment: 12/03/18 12:46 alcohol and opiate withdrawal sx Plan: continue alcohol and opiate detox
[2018-12-03] MEDS: NICOTINE POLACRILEX 2 MG GUM BUC PRN ×2 (16:50→23:37)
[2018-12-03] MEDS: diazePAM 5 MG TABLET PO PRN ×2 (17:17→21:23)
[2018-12-03] MEDS: THIAMINE HCL 100 MG TABLET (FP) PO SCH (21:23)
[2018-12-03] MEDS: MELATONIN 5 MG TABLETS PO PRN (21:24)
[2018-12-04] MEDS: NICOTINE 21 MG/24 HOURS TOPICAL PATCH TD SCH (09:23)
[2018-12-04] MEDS: PRENATAL VITAMINS W/ FOLIC ACID TABLET (FP) PO SCH (09:24)
[2018-12-04 09:43] VITALS: BP 112/79; PULSE 83; TEMP 97.6
[2018-12-04] MEDS ORDERED: METHADONE HCL 10 MG TABLET (FOR DETOX USE ONLY) PO ONE (10:00)
--- NOTE | 2018-12-04 13:01 | PN ---
[facility] CIWA - CIWA Score Nausea/Vomitin-No Nausea/No Vomiting Muscle Tremors: 1-None Visible, but [place] Anxiety: 1-Mildly Anxious Agitation: 1-Slight > Activity Paroxysmal Sweats: No Perspiration Orientation: 0-Oriented Tacttile Disturbances: 0-None Auditory Disturbances: 0-None Visual Disturbances: 0-None Headache: 1-Very Mild CIWA-Ar Total Score: 4 S COWS - Scale Resting Pulse: 1= [place] 81-100 Sweatin= No chills or Flushing Restless Observation: 0= Sits Still Pupil Size: 0= Normal to Room Light Bone or Joint Aches: 1= Mild Discomfort Runny Nose/ Eye Tearin= None GI Upset > 30mins: 0= None Tremor Observation of Outstretched Hands: 1= Tremor [place], Not Seen Yawning Observation: 0= None Anxiety or Irritability: 1=Feels Anxious/Irritable Goose Flesh Skin: 0=Smooth Skin COWS Score: 4 S Progress Note (SOAP) Subjective: alert,no complaint Objective: 12/04/18 12:58 Vital Signs Temperature 97.6 F 12/04/18 09:42 Pulse Rate 83 12/04/18 09:42 Respiratory Rate 18 12/04/18 09:42 Blood Pressure 112/79 12/04/18 09:42 O2 Sat by Pulse Oximetry (%) Assessment: 12/04/18 12:59no withdrawal symptom Plan: patient is stable for discharge today,follow up with after care program as arrangement
--- NOTE | 2018-12-04 13:04 | DS ---
[facility] Detox Discharge Summary Admission Date: 11/30/18 Discharge Date: 12/04/18 - History Present History: Alcohol Dependence, Cannabis Dependence, Opioid Dependence Additional Comments: follow up with after care program as arrangement Pertinent Past History: nicotine dependence - Physical Exam Results Vital Signs: Vital Signs Temperature 97.6 F 12/04/18 09:42 Pulse Rate 83 12/04/18 09:42 Respiratory Rate 18 12/04/18 09:42 Blood Pressure 112/79 12/04/18 09:42 O2 Sat by Pulse Oximetry (%) Pertinent Admission Physical Exam Findings: withdrawal signs and symptom Laboratory Last Values Urine Color Yellow 12/01/18 23:36 Urine Appearance Clear 12/01/18 23:36 Urine pH 6.5 (5.0-8.0) 12/01/18 23:36 Ur Specific [place] 1.020 (1.010-1.035) 12/01/18 23:36 Urine Protein Negative (NEGATIVE) 12/01/18 23:36 Urine Glucose (UA) Negative (NEGATIVE) 12/01/18 23:36 Urine Ketones Negative (NEGATIVE) 12/01/18 23:36 Urine Blood Negative (NEGATIVE) 12/01/18 23:36 Urine Nitrite Negative (NEGATIVE) 12/01/18 23:36 Urine Bilirubin Negative (NEGATIVE) 12/01/18 23:36 Urine Urobilinogen 0.2 mg/dL (0.2-1.0) 12/01/18 23:36 Ur Leukocyte Esterase 2+ (NEGATIVE) H 12/01/18 23:36 Urine WBC (Auto) 12 /hpf (0-5) 12/01/18 23:36 Urine RBC (Auto) 1 /hpf (0-4) 12/01/18 23:36 Urine Casts (Auto) 23 /lpf (0-8) 12/01/18 23:36 U Epithel Cells (Auto) 2.0 /HPF (0-5/HPF) 12/01/18 23:36 Urine Bacteria (Auto) 5.7 /hpf (NEGATIVE) 12/01/18 23:36 - Treatment Hospital Course: Detox Protocol Followed, Detoxed Safely, Responded well, Discharged Condition Good, Rehab Referral Accepted Patient has Accepted a Rehab Referral to: declined - Medication Discharge Medications: Ambulatory Orders NK [No Known Home Medication] 11/30/18 - Diagnosis (1) Opioid dependence with withdrawal Current Visit: Yes Status: Acute (2) Alcohol dependence with uncomplicated withdrawal Current Visit: Yes Status: Acute (3) Cannabis dependence, uncomplicated Current Visit: Yes Status: Acute (4) Nicotine dependence Current Visit: Yes Status: Chronic Qualifiers: Nicotine product type: cigarettes Substance use status: in withdrawal Qualified Code(s): F17.213 - Nicotine dependence, cigarettes, with withdrawal - AMA Did Patient Leave Against Medical Advice: No
[2018-12-05] MEDS ORDERED: METHADONE HCL 5 MG TABLET (FOR DETOX USE ONLY) PO ONE (06:00)
== END 2018-12-04 13:35 | disposition home or self-care (01) | DRG 773 ==
LOC: YASAS 15:11 → Y3N 21:59
PROVIDERS: ADMIT Surgery; ATTEND Surgery
PROC: HZ2ZZZZ Detoxification Services for Substance Abuse Treatment (ICD-10-PCS; principal; 2018-11-30)
DX: F10.230 Alcohol dependence with withdrawal, uncomplicated (principal); F11.23 Opioid dependence with withdrawal; F12.20 Cannabis dependence, uncomplicated; F17.210 Nicotine dependence, cigarettes, uncomplicated; R45.89 Other symptoms and signs involving emotional state; Z91.89 Other specified personal risk factors, not elsewhere classified
CPT/HCPCS: 81003; Q0162

== ENCOUNTER 2019-03-06 23:41 | Inpatient (IN) | payer OTHER ==
[2019-03-07 00:02] VITALS: BMI 25.8
--- NOTE | 2019-03-07 01:06 | HP ---
COWS - Scale Resting Pulse: 2= [place] 101-120 Sweatin=Flushed/Facial Moisture Restless Observation: 1= Difficult to Sit Still Pupil Size: 0= Normal to Room Light Bone or Joint Aches: 2= Severe Diffuse Aches Runny Nose/ Eye Tearin= Runny Nose/Eyes GI Upset > 30mins: 2= Nausea/Diarrhea (no diarrhea) Tremor Observation: 2= Slight Tremor Visible Yawning Observation: 0= None Anxiety or Irritability: 2=Irritable/Anxious Goose Flesh Skin: 0=Smooth Skin COWS Score: 15 CIWA Score Nausea/Vomitin-Mild Nausea/No Vomiting Muscle Tremors: 2 Anxiety: 1-Mildly Anxious Agitation: 0-Normal Activity Paroxysmal Sweats: No Perspiration Orientation: 0-Oriented Tacttile Disturbances: 0-None Auditory Disturbances: 0-None Visual Disturbances: 0-None Headache: 3-Moderate CIWA-Ar Total Score: 7 - Admission Criteria OASAS Guidelines: Admission for Medically Managed Detox: Requires at least one of the followin. CIWA greater than 12 2. Seizures within the past 24 hours 3. Delirium tremens within the past 24 hours 4. Hallucinations within the past 24 hours 5. Acute intervention needed for co occurring medical disorder 6. Acute intervention needed for co occurring psychiatric disorder 7. Severe withdrawal that cannot be handled at a lower level of care (continued vomiting, continued diarrhea, abnormal vital signs) requiring intravenous medication and/or fluids 8. Admitting History and Physical - Smoking History Smoking history: Current every day smoker Have you smoked in the past 12 months: Yes Aproximately how many cigarettes per day: 20 - Alcohol/Substance Use Hx Alcohol Use: Yes Admission [facility] Chief Complaint: Seeking admission to detox from heroine Allergies/Adverse Reactions: Allergies Allergy/AdvReac Type Severity Reaction Status Date / Time chlordiazepoxide Allergy Intermediate Hives Verified 03/06/19 23:53 [From Librium] History of Present Illness: 28 years old male is seeking admission to detox from heroin and possibly alcohol. Patient reports that his last detox was in November at this facility. Patient has been in multiple detox and reports insignificant period of sobriety. He has past medical history of depression and denies suicidal ideation , IVDU and overdose at this time. Patient reports that he uses Alcohol 3-6 times weekly and last use was on 03/05/2019. YONI is .000. Patient is being detoxed from Heroin only at this time - Ebola screening Have you traveled outside of the country in the last 21 days: No (N) Have you had contact with anyone from an Ebola affected area: No Do you have a fever: No - Review of Systems Constitutional: Loss of Appetite, Malaise, Changes in sleep EENT: reports: No Symptoms Reported Respiratory: reports: No Symptoms reported Cardiac: reports: No Symptoms Reported GI: reports: Constipated, Nausea, Poor Appetite, Poor Fluid Intake, Abdominal cramping : reports: No Symptoms Reported Musculoskeletal: reports: Back Pain, Muscle Pain Integumentary: reports: Dryness, Flushing Neuro: reports: Tremors Hematology: reports: No Symptoms Reported Psychiatric: reports: Mood/Affect Appropiate, Orientated x3 Other Systems: Reviewed and Negative Patient History - Patient Medical History Hx Anemia: No Hx Asthma: No Hx Chronic Obstructive Pulmonary Disease (COPD): No Hx Cancer: No Hx Cardiac Disorders: No Hx Congestive Heart Failure: No Hx Hypertension: No Hx Hypercholesterolemia: No Hx Pacemaker: No HX Cerebrovascular Accident: No Hx Seizures: No Hx Dementia: No Hx Diabetes: No Hx Gastrointestinal Disorders: No Hx Liver Disease: No Hx Genitourinary Disorders: No Hx Sexually Transmitted Disorders: No Hx Renal Disease (ESRD): No Hx Thyroid Disease: No Hx Human Immunodeficiency Virus (HIV): No ( NEGATIVE 2019) Hx Hepatitis C: No ( ) Hx Depression: No Hx Suicide Attempt: No Hx Bipolar Disorder: No Hx Schizophrenia: No - Patient Surgical History Past Surgical History: No Hx Neurologic Surgery: No Hx Cataract Extraction: No Hx Cardiac Surgery: No Hx Lung Surgery: No Hx Abdominal Surgery: No Hx Appendectomy: No Hx Cholecystectomy: No Hx Genitourinary Surgery: No Hx Orthopedic Surgery: No Anesthesia Reaction: No - PPD History Previous Implant?: Yes Documented Results: Negative w/proof Implanted On Prior R Admission?: Yes Date: 12/02/18 Results: 0MM PPD to be Administered?: No - Reproductive History Patient is a Female of Child Bearing Age (11 -55 yrs old): No (male) - Smoking Cessation Smoking history: Current every day smoker Have you smoked in the past 12 months: Yes Aproximately how many cigarettes per day: 20 Cigars Per Day: 0 Hx Chewing Tobacco Use: No Initiated information on smoking cessation: Yes 'Breaking Loose' booklet given: 03/07/19 - Substance & Tx. History Hx Alcohol Use: Yes Hx Substance Use: Yes Substance Use Type: Alcohol, Heroin, Marijuana Hx Substance Use Treatment: Yes ([facility]) - Substances abused Heroin Substance route: Inhalation Frequency: Daily Amount used: 10-15bags Age of first use: 24 Date of last use: 03/06/19 Alcohol Other (specify): VODKA/RUM Substance route: Oral Frequency: 3-6 times per week Amount used: 1 pint of rum Age of first use: 18 Date of last use: 03/05/19 Marijuana/Hashish Substance route: Smoking Frequency: 3-6 times per week Amount used: 1 bag Age of first use: 18 Date of last use: 03/05/19 Admission Physical Exam [facility] - Vital Signs Vital Signs: Vital Signs - 24 hr 03/06/19 03/07/19 23:58 00:49 Temperature 98.6 F 98.6 F Pulse Rate 103 H 103 H Respiratory 14 14 Rate Blood Pressure 142/83 142/83 - Physical General Appearance: Yes: Moderate Distress, Irritable HEENTM: Yes: Within Normal Limits, Normal Voice, GERALD Respiratory: Yes: Lungs Clear, Normal Breath Sounds, No Respiratory Distress Neck: Yes: Supple Breast: Yes: Breast Exam Deferred Cardiology: Yes: Tachycardia Abdominal: Yes: Normal Bowel Sounds Genitourinary: Yes: Within Normal Limits Back: Yes: Normal Inspection Musculoskeletal: Yes: Back pain, Muscle Pain Extremities: Yes: Tremors 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: Yes: Alert, Normal Mood/Affect Integumentary: Yes: Warm Lymphatic: Yes: Within Normal Limits - Diagnostic (1) Cannabis dependence, uncomplicated Current Visit: Yes Status: Chronic (2) Opioid dependence with withdrawal Current Visit: Yes Status: Acute (3) Depression Current Visit: No Status: Chronic Qualifiers: Depression Type: unspecified Qualified Code(s): F32.9 - Major depressive disorder, single episode, unspecified (4) Nicotine dependence Current Visit: Yes Status: Chronic Qualifiers: Nicotine product type: cigarettes Substance use status: in withdrawal Qualified Code(s): F17.213 - Nicotine dependence, cigarettes, with withdrawal Cleared for Admission [facility] - Detox or Rehab [facility] Level of Care: Medically Managed Detox Regimen/Protocol: Methadone Breathalyzer - Breathalyzer Breathalyzer: 0 Urine Drug Screen - Test Device Lot number: [id number] Expiration date: 10/23/20 - Control Is test valid?: Yes - Results Drug screen NEGATIVE: No Urine drug screen results: THC-Marijuana, FEN-Fentanyl, MOP-Opiates Inpatient Rehab Admission - Rehab Decision to Admit Inpatient rehab admission?: No
[2019-03-07] MEDS ORDERED: MENTHOL/PHENOL 1 EACH UD MM PRN (01:32)
[2019-03-07] MEDS ORDERED: BISMUTH SUBSALICYLATE 524 MG/30 ML UD PO PRN (01:32)
[2019-03-07] MEDS ORDERED: ACETAMINOPHEN 325 MG TABLET (FP) PO PRN ×2 (01:32)
[2019-03-07] MEDS ORDERED: IBUPROFEN 400 MG TABLET (FP) PO PRN (01:32)
[2019-03-07] MEDS ORDERED: MAGNESIUM HYDROX 2400MG/30ML ORAL SUSPENSION 30 ML CUP PO PRN (01:32)
[2019-03-07] MEDS ORDERED: MAG HYDROX/AL HYDROX/SIMETH 30 ML UNIT-DOSE CUP PO PRN (01:32)
[2019-03-07] MEDS ORDERED: cloNIDine HCL 0.1 MG TABLET PO PRN (01:32)
[2019-03-07] MEDS ORDERED: METHADONE HCL 10 MG TABLET (FOR DETOX USE ONLY) PO ONE (01:32)
[2019-03-07] MEDS ORDERED: NICOTINE POLACRILEX 2 MG GUM BUC PRN (01:32)
[2019-03-07] MEDS ORDERED: MAGNESIUM CITRATE 300 ML BOTTLE PO PRN (01:32)
[2019-03-07] MEDS: MELATONIN 5 MG TABLETS PO PRN ×2 (03:13→23:54)
[2019-03-07] MEDS: PRENATAL VITAMINS W/ FOLIC ACID TABLET (FP) PO SCH (10:32)
[2019-03-07] MEDS: NICOTINE 21 MG/24 HOURS TOPICAL PATCH TD SCH (10:33)
[2019-03-07] MEDS ORDERED: METHADONE HCL 10 MG TABLET (FOR DETOX USE ONLY) ONE (10:36)
[2019-03-07] MEDS ORDERED: METHADONE HCL 5 MG TABLET (FOR DETOX USE ONLY) ONE (10:36)
--- NOTE | 2019-03-07 13:51 | PN ---
BHS Progress Note Note: DNP-PIANO STRINGER NOTE Patient is stable, c/o mild headache, chills, tremor and anxiety. Will maintain medical stability. Continue detox protocol, encouraged PO water hydration.
[2019-03-07] MEDS: THIAMINE HCL 100 MG TABLET (FP) PO SCH (23:16)
[2019-03-08] MEDS ORDERED: METHADONE HCL 5 MG TABLET (FOR DETOX USE ONLY) ONE (09:09)
[2019-03-08] MEDS ORDERED: METHADONE HCL 10 MG TABLET (FOR DETOX USE ONLY) ONE (09:09)
[2019-03-08] MEDS ORDERED: METHADONE (DETOX) 20 MG, METHADONE (DETOX) 5 MG PO ONE (10:00)
[2019-03-08] MEDS: NICOTINE 21 MG/24 HOURS TOPICAL PATCH TD SCH (10:45)
[2019-03-08] MEDS: PRENATAL VITAMINS W/ FOLIC ACID TABLET (FP) PO SCH (10:53)
--- NOTE | 2019-03-08 12:48 | PN ---
[facility] CIWA - CIWA Score Nausea/Vomitin-No Nausea/No Vomiting Muscle Tremors: 2 Anxiety: 3 Agitation: 3 Paroxysmal Sweats: 3 Orientation: 0-Oriented Tacttile Disturbances: 0-None Auditory Disturbances: 0-None Visual Disturbances: 0-None Headache: 0-None Present CIWA-Ar Total Score: 11 S COWS - Scale Resting Pulse: 0= [place] 80 or Below Sweatin= Chills/Flushing Restless Observation: 1= Difficult to Sit Still Pupil Size: 0= Normal to Room Light Bone or Joint Aches: 2= Severe Diffuse Aches Runny Nose/ Eye Tearin= Runny Nose/Eyes GI Upset > 30mins: 2= Nausea/Diarrhea Tremor Observation of Outstretched Hands: 2= Slight Tremor Visible Yawning Observation: 2= >3x During Session Anxiety or Irritability: 2=Irritable/Anxious Goose Flesh Skin: 3=Piloerection COWS Score: 17 S Progress Note (SOAP) Subjective: sweats chills shakes interrupted sleep body aches agitation Objective: 03/08/19 12:47 Vital Signs Temperature 97.7 F 03/08/19 07:10 Pulse Rate 66 03/08/19 07:10 Respiratory Rate 18 03/08/19 07:10 Blood Pressure 91/60 03/08/19 07:10 O2 Sat by Pulse Oximetry (%) labs pending aaox3 ambulating no acute distress Assessment: 03/08/19 12:47 withdrawals sx Plan: continue detox increase fluids
--- NOTE | 2019-03-08 12:58 | EKG ---
Test Reason : Blood Pressure : / mmHG Vent. Rate : 061 BPM Atrial Rate : 061 BPM P-R Int : 176 ms QRS Dur : 094 ms QT Int : 416 ms P-R-T Axes : 048 067 046 degrees QTc Int : 418 ms NORMAL SINUS RHYTHM NORMAL ECG WHEN COMPARED WITH ECG OF 17-SEP-2018 21:13, T WAVE AMPLITUDE HAS INCREASED IN ANTERIOR LEADS Confirmed by JULIO CANTU MD ([id number]) on 03/08/2019 12:57:53 PM Referred By: Michael Hoover Confirmed By:JULIO CANTU MD
[2019-03-08] MEDS: MELATONIN 5 MG TABLETS PO PRN (21:57)
[2019-03-08] MEDS: hydrOXYzine PAMOATE 25 MG CAPSULE (FP) PO PRN (21:57)
[2019-03-08] MEDS: THIAMINE HCL 100 MG TABLET (FP) PO SCH (21:58)
[2019-03-09] MEDS ORDERED: hydrOXYzine PAMOATE 50 MG CAPSULE (FP) PO ONE (00:15)
[2019-03-09] MEDS: METHOCARBAMOL 500 MG TABLET PO PRN ×3 (04:24→23:22)
[2019-03-09] MEDS: diazePAM 5 MG TABLET PO PRN ×3 (09:00→21:47)
--- NOTE | 2019-03-09 09:12 | CONSULT ---
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 He stood up and said:"I'm done" and walked out
[2019-03-09] MEDS ORDERED: METHADONE HCL 10 MG TABLET (FOR DETOX USE ONLY) PO ONE (10:00)
[2019-03-09] MEDS: NICOTINE 21 MG/24 HOURS TOPICAL PATCH TD SCH (10:28)
[2019-03-09] MEDS: PRENATAL VITAMINS W/ FOLIC ACID TABLET (FP) PO SCH (10:28)
[2019-03-09] MEDS: hydrOXYzine PAMOATE 25 MG CAPSULE (FP) PO PRN ×2 (11:18→20:06)
--- NOTE | 2019-03-09 11:57 | PN ---
S CIWA - CIWA Score Nausea/Vomitin Muscle Tremors: 1-None Visible, but [place] Anxiety: 3 Agitation: 2 Paroxysmal Sweats: 2 Orientation: 0-Oriented Tacttile Disturbances: 2-Mild Itch/Numbness/Burn Auditory Disturbances: 0-None Visual Disturbances: 0-None Headache: 0-None Present CIWA-Ar Total Score: 12 BHS COWS - Scale Resting Pulse: 1= [place] 81-100 Sweatin= Chills/Flushing Restless Observation: 1= Difficult to Sit Still Pupil Size: 1= Pupils >than Normal Bone or Joint Aches: 2= Severe Diffuse Aches Runny Nose/ Eye Tearin= Nasal Congestion GI Upset > 30mins: 1= Stomach Cramp Tremor Observation of Outstretched Hands: 1= Tremor [place], Not Seen Yawning Observation: 0= None Anxiety or Irritability: 2=Irritable/Anxious Goose Flesh Skin: 3=Piloerection COWS Score: 14 BHS Progress Note (SOAP) Subjective: interrupted sleep, sweats, shakes aches, pains , restless Objective: 03/09/19 11:58 Vital Signs Temperature 97.7 F 03/09/19 09:16 Pulse Rate 93 H 03/09/19 09:16 Respiratory Rate 18 03/09/19 09:16 Blood Pressure 109/74 03/09/19 09:16 O2 Sat by Pulse Oximetry (%) labs pending 03/09/19 11:59 pt restless but aox3 , lying in bed covered up with blanket ,responding appropriately Assessment: 03/09/19 12:00 withdrawal sx's Plan: cont. detox increase fluids f/up pending labs valium prn
[2019-03-09] MEDS: MELATONIN 5 MG TABLETS PO PRN (21:47)
[2019-03-09] MEDS: THIAMINE HCL 100 MG TABLET (FP) PO SCH (21:47)
[2019-03-10] MEDS: diazePAM 5 MG TABLET PO PRN ×3 (03:59→21:21)
[2019-03-10] MEDS ORDERED: METHADONE HCL 5 MG TABLET (FOR DETOX USE ONLY) ONE (09:10)
[2019-03-10] MEDS ORDERED: METHADONE HCL 10 MG TABLET (FOR DETOX USE ONLY) ONE (09:10)
[2019-03-10] MEDS ORDERED: METHADONE (DETOX) 10 MG, METHADONE (DETOX) 5 MG PO ONE (10:00)
[2019-03-10] MEDS: NICOTINE 21 MG/24 HOURS TOPICAL PATCH TD SCH (10:51)
[2019-03-10] MEDS: PRENATAL VITAMINS W/ FOLIC ACID TABLET (FP) PO SCH (10:51)
--- NOTE | 2019-03-10 13:06 | PN ---
S CIWA - CIWA Score Nausea/Vomitin Muscle Tremors: 2 Anxiety: 3 Agitation: 2 Paroxysmal Sweats: 2 Orientation: 0-Oriented Tacttile Disturbances: 2-Mild Itch/Numbness/Burn Auditory Disturbances: 0-None Visual Disturbances: 0-None Headache: 0-None Present CIWA-Ar Total Score: 13 BHS COWS - Scale Resting Pulse: 1= [place] 81-100 Sweatin= Chills/Flushing Restless Observation: 1= Difficult to Sit Still Pupil Size: 0= Normal to Room Light Bone or Joint Aches: 2= Severe Diffuse Aches Runny Nose/ Eye Tearin= Runny Nose/Eyes GI Upset > 30mins: 1= Stomach Cramp Tremor Observation of Outstretched Hands: 1= Tremor [place], Not Seen Yawning Observation: 1= 1-2x During Session Anxiety or Irritability: 2=Irritable/Anxious Goose Flesh Skin: 0=Smooth Skin COWS Score: 12 S Progress Note (SOAP) Subjective: c/o of chills, body aches, sweats Objective: 03/10/19 13:06 Vital Signs Temperature 98.2 F 03/10/19 13:01 Pulse Rate 81 03/10/19 13:01 Respiratory Rate 18 03/10/19 13:01 Blood Pressure 117/85 03/10/19 13:01 O2 Sat by Pulse Oximetry (%) labs pending Assessment: 03/10/19 13:59 Aox3, anxious EENT WNL full ROM no gait disturbance ambulating in the unit withdrawal sx Plan: increase PO fluids continue detox continue to monitor
[2019-03-10] MEDS: METHOCARBAMOL 500 MG TABLET PO PRN (13:56)
[2019-03-10] MEDS: MELATONIN 5 MG TABLETS PO PRN (21:22)
[2019-03-10] MEDS: THIAMINE HCL 100 MG TABLET (FP) PO SCH (21:23)
[2019-03-11] MEDS: diazePAM 5 MG TABLET PO PRN ×3 (01:14→15:49)
[2019-03-11] MEDS: hydrOXYzine PAMOATE 25 MG CAPSULE (FP) PO PRN ×2 (01:14→18:08)
[2019-03-11] MEDS: METHOCARBAMOL 500 MG TABLET PO PRN ×2 (01:14→18:08)
[2019-03-11] MEDS ORDERED: METHADONE HCL 10 MG TABLET (FOR DETOX USE ONLY) PO ONE (10:00)
[2019-03-11] MEDS: NICOTINE 21 MG/24 HOURS TOPICAL PATCH TD SCH (10:56)
[2019-03-11] MEDS: PRENATAL VITAMINS W/ FOLIC ACID TABLET (FP) PO SCH (10:56)
[2019-03-11] MEDS: THIAMINE HCL 100 MG TABLET (FP) PO SCH (23:42)
[2019-03-12] MEDS: diazePAM 5 MG TABLET PO PRN (04:19)
[2019-03-12] MEDS: METHOCARBAMOL 500 MG TABLET PO PRN (04:19)
[2019-03-12] MEDS ORDERED: METHADONE HCL 5 MG TABLET (FOR DETOX USE ONLY) PO ONE (06:00)
[2019-03-12 08:54] VITALS: BP 100/63; PULSE 77; TEMP 96.4
--- NOTE | 2019-03-12 10:45 | DS ---
[facility] Detox Discharge Summary Admission Date: 03/07/19 Discharge Date: 03/12/19 - History Present History: Alcohol Dependence, Cannabis Dependence, Cocaine Dependence, Opioid Dependence - Physical Exam Results Vital Signs: Vital Signs Temperature 96.4 F L 03/12/19 06:30 Pulse Rate 77 03/12/19 06:30 Respiratory Rate 18 03/12/19 06:30 Blood Pressure 100/63 03/12/19 06:30 O2 Sat by Pulse Oximetry (%) Pertinent Admission Physical Exam Findings: pt arrived in withdrawals Vital Signs Temperature 96.4 F L 03/12/19 06:30 Pulse Rate 77 03/12/19 06:30 Respiratory Rate 18 03/12/19 06:30 Blood Pressure 100/63 03/12/19 06:30 O2 Sat by Pulse Oximetry (%) today pt is aaox3 no acute distress no s/s of withdrawals - Treatment Hospital Course: Detox Protocol Followed, Detoxed Safely, Responded well, Discharged Condition Good, Rehab Referral Accepted Patient has Accepted a Rehab Referral to: pt declined rehab; referral provided - Medication Discharge Medications: Ambulatory Orders NK [No Known Home Medication] 11/30/18 - Diagnosis (1) Opioid dependence with withdrawal Current Visit: Yes Status: Chronic (2) Cannabis dependence, uncomplicated Current Visit: Yes Status: Chronic (3) Nicotine dependence Current Visit: Yes Status: Chronic Qualifiers: Nicotine product type: cigarettes Substance use status: uncomplicated Qualified Code(s): F17.210 - Nicotine dependence, cigarettes, uncomplicated (4) Alcohol dependence with uncomplicated withdrawal Current Visit: Yes Status: Chronic (5) Cocaine dependence, uncomplicated Current Visit: Yes Status: Chronic (6) Insomnia Current Visit: No Status: Acute (7) Depression Current Visit: No Status: Chronic Qualifiers: Depression Type: unspecified Qualified Code(s): F32.9 - Major depressive disorder, single episode, unspecified (8) Depressed affect Current Visit: No Status: Suspected - AMA Did Patient Leave Against Medical Advice: No
== END 2019-03-12 09:14 | disposition home or self-care (01) | DRG 773 ==
LOC: YASAS 23:41 → Y6N 03-07 01:30
PROVIDERS: ADMIT Allergy & Immunology; ATTEND Allergy & Immunology
PROC: HZ2ZZZZ Detoxification Services for Substance Abuse Treatment (ICD-10-PCS; principal; 2019-03-07)
DX: F10.230 Alcohol dependence with withdrawal, uncomplicated (principal); F11.23 Opioid dependence with withdrawal; F14.20 Cocaine dependence, uncomplicated; F12.20 Cannabis dependence, uncomplicated; F17.210 Nicotine dependence, cigarettes, uncomplicated; F32.9 Major depressive disorder, single episode, unspecified; Z88.8 Allergy status to other drugs, medicaments and biological substances
CPT/HCPCS: 93005; 93010

== ENCOUNTER 2019-05-07 16:26 | Inpatient (IN) | payer OTHER ==
[2019-05-07 19:57] VITALS: BMI 27.8
--- NOTE | 2019-05-07 22:16 | HP ---
COWS - Scale Resting Pulse: 1= [place] 81-100 Sweatin= Chills/Flushing Restless Observation: 5= Unable to Sit Still Pupil Size: 1= Pupils >than Normal Bone or Joint Aches: 4=Acute Joint/Muscle Pain Runny Nose/ Eye Tearin= Constantly Teary/Runny GI Upset > 30mins: 1= Stomach Cramp Tremor Observation: 0= None Yawning Observation: 1= 1-2x During Session Anxiety or Irritability: 2=Irritable/Anxious Goose Flesh Skin: 3=Piloerection COWS Score: 23 CIWA Score Nausea/Vomitin (WITNESSED VOMITING) Muscle Tremors: None Anxiety: 4-Mod. Anxious/Guarded Agitation: 4-Moderately Restless Paroxysmal Sweats: 3 Orientation: 1-Uncertain about Date Tacttile Disturbances: 0-None Auditory Disturbances: 0-None Visual Disturbances: 3-Moderate Sensitivity (to light) Headache: 0-None Present CIWA-Ar Total Score: 20 - Admission Criteria OASAS Guidelines: Admission for Medically Managed Detox: Requires at least one of the followin. CIWA greater than 12 2. Seizures within the past 24 hours 3. Delirium tremens within the past 24 hours 4. Hallucinations within the past 24 hours 5. Acute intervention needed for co occurring medical disorder 6. Acute intervention needed for co occurring psychiatric disorder 7. Severe withdrawal that cannot be handled at a lower level of care (continued vomiting, continued diarrhea, abnormal vital signs) requiring intravenous medication and/or fluids 8. Admitting History and Physical - Smoking History Smoking history: Current every day smoker Have you smoked in the past 12 months: Yes Aproximately how many cigarettes per day: 20 - Alcohol/Substance Use Hx Alcohol Use: Yes Admission [facility] Chief Complaint: seeking alcohol/heroin detox Allergies/Adverse Reactions: Allergies Allergy/AdvReac Type Severity Reaction Status Date / Time chlordiazepoxide Allergy Mild Vomiting Verified 05/07/19 19:44 [From Librium] History of Present Illness: HERE FOR ALCOHOL AND HEROIN DETOX. CLIENT IS SELF REFERRED. KNOWN TO PROGRAM. LAST HERE 02/2019. CLIENT REPORTS RELAPSING SAME DAY AFTER DC. HE REPORTS DAILY USE OF HEROIN/ALCOHOL. DENIES IVDU, DRUG OVERDOSE, BLACK OUTS, SZ. LAST USE 2 AM THIS MORNING. PRESENTS WITH C/O WITHDRAWAL SX'S. DENIES ANY SIGNIFICANT PERIOD OF CLEAN TIME EXCEPT WHEN IN TXMENT. LIVES W/ MOTHER, UNEMPLOYED, DENIES LEGALS Exam Limitations: No Limitations - Ebola screening Have you traveled outside of the country in the last 21 days: No (N) Have you had contact with anyone from an Ebola affected area: No Do you have a fever: No - Review of Systems Constitutional: Chills, Loss of Appetite, Malaise, Night Sweats, Changes in sleep EENT: reports: Nose Congestion Respiratory: reports: No Symptoms reported Cardiac: reports: No Symptoms Reported GI: reports: Nausea, Abdominal cramping : reports: No Symptoms Reported Musculoskeletal: reports: Back Pain Integumentary: reports: Sweating Neuro: reports: No Symptoms reported Endocrine: reports: No Symptoms Reported Hematology: reports: No Symptoms Reported Psychiatric: reports: Orientated x3, Agitated (IRRITABLE), Anxious Other Systems: Reviewed and Negative Patient History - Patient Medical History Hx Anemia: No Hx Asthma: No Hx Chronic Obstructive Pulmonary Disease (COPD): No Hx Cancer: No Hx Cardiac Disorders: No Hx Congestive Heart Failure: No Hx Hypertension: No Hx Hypercholesterolemia: No Hx Pacemaker: No HX Cerebrovascular Accident: No Hx Seizures: No Hx Dementia: No Hx Diabetes: No Hx Gastrointestinal Disorders: No Hx Liver Disease: No Hx Genitourinary Disorders: No Hx Sexually Transmitted Disorders: No Hx Renal Disease (ESRD): No Hx Thyroid Disease: No Hx Human Immunodeficiency Virus (HIV): No Hx Hepatitis C: No ( ) Hx Depression: No Hx Suicide Attempt: No Hx Bipolar Disorder: No Hx Schizophrenia: No Other Medical History: DENIES - Patient Surgical History Past Surgical History: No Hx Neurologic Surgery: No Hx Cataract Extraction: No Hx Cardiac Surgery: No Hx Lung Surgery: No Hx Breast Surgery: No Hx Breast Biopsy: No Hx Abdominal Surgery: No Hx Appendectomy: No Hx Cholecystectomy: No Hx Genitourinary Surgery: No Hx Section: No Hx Orthopedic Surgery: No Anesthesia Reaction: No - PPD History Previous Implant?: Yes Documented Results: Negative w/proof Implanted On Prior R Admission?: Yes Date: 12/02/18 Results: 0MM PPD to be Administered?: No - Smoking Cessation Smoking history: Current every day smoker Have you smoked in the past 12 months: Yes Aproximately how many cigarettes per day: 20 Cigars Per Day: 0 Hx Chewing Tobacco Use: No Initiated information on smoking cessation: Yes 'Breaking Loose' booklet given: 05/07/19 - Substance & Tx. History Hx Alcohol Use: Yes Hx Substance Use: Yes Substance Use Type: Alcohol, Heroin Hx Substance Use Treatment: Yes ([facility]) - Substances abused Heroin Substance route: Inhalation Frequency: Daily Amount used: 10-15bags Age of first use: 24 Date of last use: 05/07/19 Alcohol Other (specify): VODKA/RUM Substance route: Oral Frequency: 3-6 times per week Amount used: 1 pint of rum/vodka/6 packs Age of first use: 18 Date of last use: 05/06/19 Marijuana/Hashish Substance route: Smoking Frequency: 1-2 times per week Amount used: 1 bag Age of first use: 18 Date of last use: 04/25/19 Admission Physical Exam [facility] - Vital Signs Vital Signs: Vital Signs - 24 hr 05/07/19 19:43 Temperature 97.8 F Pulse Rate 88 Respiratory 18 Rate Blood Pressure 113/75 - Physical General Appearance: Yes: Moderate Distress, Tremorous, Anxious HEENTM: Yes: EOMI, Normocephalic, Normal Voice, GERALD, Pharynx Normal Respiratory: Yes: Chest Non-Tender, Lungs Clear, Normal Breath Sounds, No Respiratory Distress, No Accessory Muscle Use Neck: Yes: No masses,lesions,Nodules, Supple, Trachea in good position Breast: Yes: Breasts Symetrical Cardiology: Yes: Regular Rhythm, Regular Rate, S1, S2 Abdominal: Yes: Non Tender, Soft, Increased Bowel Sounds Genitourinary: Yes: Within Normal Limits Back: Yes: Normal Inspection Musculoskeletal: Yes: full range of Motion, Gait Steady Extremities: Yes: Normal Capillary Refill, Normal Range of Motion, Non-Tender 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: Yes: Fully Oriented, Alert, Motor Strength 5/5, Depressed Affect Integumentary: Yes: Dry, Warm Lymphatic: Yes: Within Normal Limits - Diagnostic (1) Alcohol dependence with uncomplicated withdrawal Current Visit: No Status: Chronic (2) Nicotine dependence Current Visit: No Status: Chronic Qualifiers: Nicotine product type: cigarettes Substance use status: uncomplicated Qualified Code(s): F17.210 - Nicotine dependence, cigarettes, uncomplicated (3) Opioid dependence with withdrawal Current Visit: No Status: Chronic (4) Depressed affect Current Visit: No Status: Suspected Comment: declines psych consult Cleared for Admission [facility] - Detox or Rehab [facility] Level of Care: Medically Managed Detox Regimen/Protocol: Methadone/Valium Claeared for Rehab Admission: No Breathalyzer - Breathalyzer Breathalyzer: 0 Urine Drug Screen - Test Device Lot number: [id number] Expiration date: 12/22/20 - Control Is test valid?: Yes - Results Drug screen NEGATIVE: Yes Urine drug screen results: FEN-Fentanyl Inpatient Rehab Admission - Rehab Decision to Admit Inpatient rehab admission?: No
[2019-05-07] MEDS ORDERED: P-EPHED 60MG/TRIPROLIDI 2.5MG TABLET PO PRN (22:17)
[2019-05-07] MEDS ORDERED: MENTHOL/PHENOL 1 EACH UD MM PRN (22:17)
[2019-05-07] MEDS ORDERED: MAGNESIUM CITRATE 300 ML BOTTLE PO PRN (22:17)
[2019-05-07] MEDS ORDERED: hydrOXYzine PAMOATE 25 MG CAPSULE (FP) PO PRN (22:17)
[2019-05-07] MEDS ORDERED: METHOCARBAMOL 500 MG TABLET PO PRN (22:17)
[2019-05-07] MEDS ORDERED: IBUPROFEN 400 MG TABLET (FP) PO PRN (22:17)
[2019-05-07] MEDS ORDERED: ONDANSETRON *ODT* 4 MG TABLET SL PRN (22:17)
[2019-05-07] MEDS ORDERED: MELATONIN 5 MG TABLETS PO PRN (22:17)
[2019-05-07] MEDS ORDERED: NALOXONE HCL 0.4 MG/ML VIAL IM PRN (22:17)
[2019-05-07] MEDS ORDERED: DICYCLOMINE HCL 10 MG CAPSULE PO PRN (22:17)
[2019-05-07] MEDS ORDERED: METHADONE HCL 10 MG TABLET (FOR DETOX USE ONLY) PO ONE (22:17)
[2019-05-07] MEDS ORDERED: cloNIDine HCL 0.1 MG TABLET PO PRN (22:17)
[2019-05-07] MEDS ORDERED: BISMUTH SUBSALICYLATE 524 MG/30 ML UD PO PRN (22:17)
[2019-05-07] MEDS ORDERED: MAGNESIUM HYDROX 2400MG/30ML ORAL SUSPENSION 30 ML CUP PO PRN (22:17)
[2019-05-07] MEDS ORDERED: NICOTINE POLACRILEX 2 MG GUM BUC PRN (22:17)
[2019-05-07] MEDS ORDERED: ACETAMINOPHEN 325 MG TABLET (FP) PO PRN ×2 (22:17)
[2019-05-07] MEDS ORDERED: MAG HYDROX/AL HYDROX/SIMETH 30 ML UNIT-DOSE CUP PO PRN (22:17)
[2019-05-07] MEDS ORDERED: guaiFENesin 200 MG/10 ML 10 ML UNIT-DOSE CUPS PO PRN (22:17)
[2019-05-07] MEDS: diazePAM 5 MG TABLET PO SCH (23:32)
[2019-05-08] MEDS: diazePAM 5 MG TABLET PO SCH ×3 (05:16→22:32)
[2019-05-08] MEDS ORDERED: METHADONE (DETOX) 20 MG, METHADONE (DETOX) 5 MG PO ONE (10:00)
[2019-05-08] MEDS: NICOTINE 21 MG/24 HOURS TOPICAL PATCH TD SCH (11:14)
[2019-05-08] MEDS ORDERED: METHADONE HCL 5 MG TABLET (FOR DETOX USE ONLY) ONE (11:17)
[2019-05-08] MEDS ORDERED: METHADONE HCL 10 MG TABLET (FOR DETOX USE ONLY) ONE (11:18)
[2019-05-08] MEDS: PRENATAL VITAMINS W/ FOLIC ACID TABLET (FP) PO SCH (11:19)
[2019-05-08] MEDS: diazePAM 5 MG TABLET PO PRN ×2 (11:21→17:15)
--- NOTE | 2019-05-08 13:48 | PN ---
[facility] CIWA - CIWA Score Nausea/Vomitin-Mild Nausea/No Vomiting Muscle Tremors: 2 Anxiety: 2 Agitation: 2 Paroxysmal Sweats: 2 Orientation: 0-Oriented Tacttile Disturbances: 0-None Auditory Disturbances: 0-None Visual Disturbances: 0-None Headache: 2-Mild CIWA-Ar Total Score: 11 S COWS - Scale Resting Pulse: 1= [place] 81-100 Sweatin= Chills/Flushing Restless Observation: 1= Difficult to Sit Still Pupil Size: 1= Pupils >than Normal Bone or Joint Aches: 1= Mild Discomfort Runny Nose/ Eye Tearin= Nasal Congestion GI Upset > 30mins: 1= Stomach Cramp Tremor Observation of Outstretched Hands: 1= Tremor [place], Not Seen Yawning Observation: 1= 1-2x During Session Anxiety or Irritability: 1=Feels Anxious/Irritable Goose Flesh Skin: 0=Smooth Skin COWS Score: 10 S Progress Note (SOAP) Subjective: pt admitted last truman for alcohol and heroin detox. walking around no complaints , doing well with the detox protocols O: Vital Signs - 24 hr 05/07/19 05/08/19 05/08/19 19:43 00:30 03:30 Temperature 97.8 F Pulse Rate 88 Respiratory 18 18 18 Rate Blood Pressure 113/75 05/08/19 05/08/19 05:50 06:25 Temperature 97.9 F Pulse Rate 71 71 Respiratory 18 18 Rate Blood Pressure 125/78 a/p: alcohol and heroin Use disorders- continue detox protocols. labs pending
--- NOTE | 2019-05-08 15:03 | CONSULT ---
[facility] Psychiatric Consult - Data Date of interview: 05/08/19 Admission source: [facility] Identifying data: Patient is approached at bedside for psychiatric interview. Mr Keys refuses. Nursing staff is made aware.
[2019-05-08] MEDS: THIAMINE HCL 100 MG TABLET (FP) PO SCH (22:32)
[2019-05-09] MEDS: diazePAM 5 MG TABLET PO SCH ×2 (07:34→17:12)
[2019-05-09] MEDS: NICOTINE 21 MG/24 HOURS TOPICAL PATCH TD SCH (09:47)
[2019-05-09] MEDS: PRENATAL VITAMINS W/ FOLIC ACID TABLET (FP) PO SCH (09:47)
[2019-05-09] MEDS: diazePAM 5 MG TABLET PO PRN ×2 (09:51→21:39)
[2019-05-09] MEDS ORDERED: METHADONE HCL 10 MG TABLET (FOR DETOX USE ONLY) PO ONE (10:00)
--- NOTE | 2019-05-09 12:43 | PN ---
[facility] CIWA - CIWA Score Nausea/Vomitin-Mild Nausea/No Vomiting Muscle Tremors: 2 Anxiety: 3 Agitation: 2 Paroxysmal Sweats: 2 Orientation: 0-Oriented Tacttile Disturbances: 0-None Auditory Disturbances: 0-None Visual Disturbances: 0-None Headache: 0-None Present CIWA-Ar Total Score: 10 S COWS - Scale Resting Pulse: 0= [place] 80 or Below Sweatin= Chills/Flushing Restless Observation: 3= Extraneous Movement Pupil Size: 0= Normal to Room Light Bone or Joint Aches: 1= Mild Discomfort Runny Nose/ Eye Tearin= None GI Upset > 30mins: 1= Stomach Cramp Tremor Observation of Outstretched Hands: 2= Slight Tremor Visible Yawning Observation: 0= None Anxiety or Irritability: 2=Irritable/Anxious Goose Flesh Skin: 0=Smooth Skin COWS Score: 10 [facility] Progress Note (SOAP) Subjective: Patient asleep but aroused easily, refused to speak with development writer Objective: 05/09/19 12:42 Last Vital Signs Temp Pulse Resp BP Pulse Ox 98.1 F 56 L 18 111/70 05/08/19 21:51 05/09/19 06:00 05/09/19 06:00 05/09/19 06:00 No admission lab result available (patient refused admission labs), lab results from July and November 2018 reviewed Assessment: 05/09/19 12:43 Withdrawal sxs Plan: Continue detox Encouraged PO water intake Admission labs reordered in AM: CBC, CMP, RPR
[2019-05-09] MEDS: THIAMINE HCL 100 MG TABLET (FP) PO SCH (21:39)
[2019-05-10] MEDS ORDERED: diazePAM 5 MG TABLET PO ONE (06:00)
--- NOTE | 2019-05-10 09:11 | PN ---
[facility] CIWA - CIWA Score Nausea/Vomitin-Mild Nausea/No Vomiting Muscle Tremors: 2 Anxiety: 2 Agitation: 2 Paroxysmal Sweats: No Perspiration Orientation: 0-Oriented Tacttile Disturbances: 1-Very Mild Itch/Numbness Auditory Disturbances: 0-None Visual Disturbances: 0-None Headache: 1-Very Mild CIWA-Ar Total Score: 9 [facility] COWS - Scale Resting Pulse: 0= [place] 80 or Below Sweatin= No chills or Flushing Restless Observation: 1= Difficult to Sit Still Pupil Size: 1= Pupils >than Normal Bone or Joint Aches: 1= Mild Discomfort Runny Nose/ Eye Tearin= Nasal Congestion GI Upset > 30mins: 1= Stomach Cramp Tremor Observation of Outstretched Hands: 1= Tremor [place], Not Seen Yawning Observation: 1= 1-2x During Session Anxiety or Irritability: 1=Feels Anxious/Irritable Goose Flesh Skin: 0=Smooth Skin COWS Score: 8 S Progress Note (SOAP) Subjective: alepainin the bodyrt,irritable,anxious,interrupted sleep, Objective: 05/10/19 09:09 Vital Signs Temperature 98.2 F 05/09/19 21:09 Pulse Rate 73 05/09/19 21:09 Respiratory Rate 18 05/10/19 03:30 Blood Pressure 107/66 05/09/19 21:09 O2 Sat by Pulse Oximetry (%) ekg nsr,rate 73 05/10/19 09:10 refused blood tests Assessment: 05/10/19 09:10 withdrawal symptom Plan: continue detox,methadone and valium regimen
--- NOTE | 2019-05-10 09:13 | PN ---
[facility] Progress Note Note: patient did not want to complete treatment,all attempts to convince patient to stay with no avail, signed release ama,advise to call 911 if not feeling well
--- NOTE | 2019-05-10 09:16 | DS ---
[facility] Detox Discharge Summary Admission Date: 05/07/19 Discharge Date: 05/10/19 - History Present History: Alcohol Dependence, Opioid Dependence Additional Comments: patient signed release ama,advise to call 911 if not feeling well Pertinent Past History: nicotine dependence - Physical Exam Results Vital Signs: Vital Signs Temperature 98.2 F 05/09/19 21:09 Pulse Rate 73 05/09/19 21:09 Respiratory Rate 18 05/10/19 03:30 Blood Pressure 107/66 05/09/19 21:09 O2 Sat by Pulse Oximetry (%) Pertinent Admission Physical Exam Findings: withdrawal signs and symptom Vital Signs Temperature 98.2 F 05/09/19 21:09 Pulse Rate 73 05/09/19 21:09 Respiratory Rate 18 05/10/19 03:30 Blood Pressure 107/66 05/09/19 21:09 O2 Sat by Pulse Oximetry (%) - Medication Discharge Medications: Ambulatory Orders NK [No Known Home Medication] 11/30/18 - Diagnosis (1) Alcohol dependence with uncomplicated withdrawal Current Visit: No Status: Chronic (2) Nicotine dependence Current Visit: No Status: Chronic Qualifiers: Nicotine product type: cigarettes Substance use status: uncomplicated Qualified Code(s): F17.210 - Nicotine dependence, cigarettes, uncomplicated (3) Opioid dependence with withdrawal Current Visit: No Status: Chronic - AMA Did Patient Leave Against Medical Advice: Yes
[2019-05-10 09:25] VITALS: BP 106/68; PULSE 66; TEMP 97.5
[2019-05-10] MEDS ORDERED: METHADONE (DETOX) 10 MG, METHADONE (DETOX) 5 MG PO ONE (10:00)
[2019-05-11] MEDS ORDERED: METHADONE HCL 10 MG TABLET (FOR DETOX USE ONLY) PO ONE (10:00)
--- NOTE | 2019-05-11 11:30 | EKG ---
Test Reason : Blood Pressure : / mmHG Vent. Rate : 073 BPM Atrial Rate : 073 BPM P-R Int : 168 ms QRS Dur : 092 ms QT Int : 400 ms P-R-T Axes : 061 068 026 degrees QTc Int : 440 ms NORMAL SINUS RHYTHM NORMAL ECG WHEN COMPARED WITH ECG OF 08-MAR-2019 07:51, NO SIGNIFICANT CHANGE WAS FOUND Confirmed by Humberto Beckman MD ([id number]) on 05/11/2019 11:30:09 AM Referred By: Michael Hoover Confirmed By:Humberto Beckman MD
[2019-05-12] MEDS ORDERED: METHADONE HCL 5 MG TABLET (FOR DETOX USE ONLY) PO ONE (06:00)
== END 2019-05-10 09:52 | disposition left against medical advice (07) | DRG 770 ==
LOC: YASAS 16:26 → Y6N 22:26
PROVIDERS: ADMIT Allergy & Immunology; ATTEND Allergy & Immunology
PROC: HZ2ZZZZ Detoxification Services for Substance Abuse Treatment (ICD-10-PCS; principal; 2019-05-07)
DX: F11.23 Opioid dependence with withdrawal (principal); F10.230 Alcohol dependence with withdrawal, uncomplicated; F17.210 Nicotine dependence, cigarettes, uncomplicated; Z88.8 Allergy status to other drugs, medicaments and biological substances
CPT/HCPCS: 93005; 93010

== ENCOUNTER 2019-06-01 09:00 | Inpatient (IN) | payer OTHER ==
[2019-06-01 09:16] VITALS: BMI 28.1
[2019-06-01] MEDS ORDERED: chlordiazePOXIDE HCL 25 MG CAPSULE PO SCH (11:00)
--- NOTE | 2019-06-01 11:12 | HP ---
COWS - Scale Resting Pulse: 0= [place] 80 or Below Sweatin= No chills or Flushing Restless Observation: 1= Difficult to Sit Still Pupil Size: 0= Normal to Room Light Bone or Joint Aches: 1= Mild Discomfort Runny Nose/ Eye Tearin= Runny Nose/Eyes GI Upset > 30mins: 1= Stomach Cramp Tremor Observation: 1= Tremor [place], Not Seen Yawning Observation: 2= >3x During Session Anxiety or Irritability: 2=Irritable/Anxious Goose Flesh Skin: 3=Piloerection COWS Score: 13 CIWA Score Nausea/Vomitin-No Nausea/No Vomiting Muscle Tremors: 1-None Visible, but [place] Anxiety: 2 Agitation: 2 Paroxysmal Sweats: 3 Orientation: 0-Oriented Tacttile Disturbances: 0-None Auditory Disturbances: 0-None Visual Disturbances: 1-Very Mild Sensitivity Headache: 3-Moderate CIWA-Ar Total Score: 12 - Admission Criteria OASAS Guidelines: Admission for Medically Managed Detox: Requires at least one of the followin. CIWA greater than 12 2. Seizures within the past 24 hours 3. Delirium tremens within the past 24 hours 4. Hallucinations within the past 24 hours 5. Acute intervention needed for co occurring medical disorder 6. Acute intervention needed for co occurring psychiatric disorder 7. Severe withdrawal that cannot be handled at a lower level of care (continued vomiting, continued diarrhea, abnormal vital signs) requiring intravenous medication and/or fluids 8. Admitting History and Physical - Admission Chief Complaint: " I am serious about completing detox and rehab." History of Present Illness: 29 year old male with opioid dependence with withdrawals and alcohol dependence. He is using 1 1.5 bundles of heroin daily, intranasally. He has not yet overdose. He has no narcan kit. He is drinking 1 pint of rum daily, last drink yesterday. He denies withdrawal seizures. However, he's had episodes of near blackouts. He drinks usually secondarily to heroin. He is requesting detox from heroin and alcohol. He is self-referred and mom drove him to [facility]. Known to the program and was in detox but signed out early due to the of his cousin. However, she slept in the streets last night and mother picked him up to bring him to detox because she gave him an ultimatum to clean up or not come back home. He smokes 1/2 ppd - 1ppd daily since the age of [age] years old. Marijuana use is less frequent about once every 3 weeks. PMH: None Psurg: None Psych: None History Source: Patient Limitations to Obtaining History: No Limitations - Past Surgical History Past Surgical History: Yes: None - Advance Directives Advance Directives: No: Living Will, Health Care Proxy, DNR - Smoking History Smoking history: Current every day smoker Have you smoked in the past 12 months: Yes Aproximately how many cigarettes per day: 20 - Alcohol/Substance Use Hx Alcohol Use: Yes History of Substance Use: reports: Heroin - Social History Usual Living Arrangement: Yes: Alone Do you think of yourself as: Straight/Heterosexual ADL: Independent Occupation: unemployed History of Recent Travel: Yes Admission [facility] Allergies/Adverse Reactions: Allergies Allergy/AdvReac Type Severity Reaction Status Date / Time chlordiazepoxide Allergy Mild Vomiting Verified 06/01/19 09:11 [From Librium] Exam Limitations: No Limitations - Ebola screening Have you traveled outside of the country in the last 21 days: No Have you had contact with anyone from an Ebola affected area: No Have you been sick,other than usual withdrawal symptoms: No Do you have a fever: No - Review of Systems Constitutional: Diaphoresis, Night Sweats, Unintentional Wgt. Loss EENT: reports: No Symptoms Reported Respiratory: reports: No Symptoms reported Cardiac: reports: No Symptoms Reported GI: reports: No Symptoms Reported : reports: No Symptoms Reported Musculoskeletal: reports: No Symptoms Reported Integumentary: reports: No Symptoms Reported Neuro: reports: No Symptoms reported Endocrine: reports: No Symptoms Reported Hematology: reports: No Symptoms Reported Psychiatric: reports: Judgement Intact, Mood/Affect Appropiate, Orientated x3, Anxious, Depressed Other Systems: Reviewed and Negative Patient History - Patient Medical History Hx Anemia: No Hx Asthma: No Hx Chronic Obstructive Pulmonary Disease (COPD): No Hx Cancer: No Hx Cardiac Disorders: No Hx Congestive Heart Failure: No Hx Hypertension: No Hx Hypercholesterolemia: No Hx Pacemaker: No HX Cerebrovascular Accident: No Hx Seizures: No Hx Dementia: No Hx Diabetes: No Hx Gastrointestinal Disorders: No Hx Liver Disease: No Hx Genitourinary Disorders: No Hx Sexually Transmitted Disorders: No Hx Renal Disease (ESRD): No Hx Thyroid Disease: No Hx Human Immunodeficiency Virus (HIV): No Hx Hepatitis C: No ( ) Hx Depression: No Hx Suicide Attempt: No Hx Bipolar Disorder: No Hx Schizophrenia: No - Patient Surgical History Past Surgical History: No Hx Neurologic Surgery: No Hx Cataract Extraction: No Hx Cardiac Surgery: No Hx Lung Surgery: No Hx Breast Surgery: No Hx Breast Biopsy: No Hx Abdominal Surgery: No Hx Appendectomy: No Hx Cholecystectomy: No Hx Genitourinary Surgery: No Hx Section: No Hx Orthopedic Surgery: No Anesthesia Reaction: No - PPD History Previous Implant?: Yes Documented Results: Negative w/proof Implanted On Prior [facility] Admission?: Yes Date: 12/02/18 Results: 0MM PPD to be Administered?: No - Smoking Cessation Smoking history: Current every day smoker Have you smoked in the past 12 months: Yes Aproximately how many cigarettes per day: 20 Cigars Per Day: 0 Hx Chewing Tobacco Use: No Initiated information on smoking cessation: Yes 'Breaking Loose' booklet given: 06/01/19 - Substances abused Heroin Substance route: Inhalation Frequency: Daily Amount used: 10-15bags Age of first use: 26 Date of last use: 05/31/19 Alcohol Other (specify): VODKA/RUM Substance route: Oral Frequency: Daily Amount used: 1 pint of rum/vodka/6 packs Age of first use: 18 Date of last use: 05/31/19 Marijuana/Hashish Substance route: Smoking Frequency: 1-2 times per week Amount used: 1blunt Age of first use: 18 Date of last use: 05/25/19 Admission Physical Exam [facility] - Vital Signs Vital Signs: Vital Signs - 24 hr 06/01/19 09:05 Temperature 97.8 F Pulse Rate 100 H Respiratory 17 Rate Blood Pressure 124/84 - Physical General Appearance: Yes: No Apparent Distress, Nourished, Appropriately Dressed HEENTM: Yes: EOMI, Hearing grossly Normal, Normal ENT Inspection, Normocephalic , Normal Voice, GERALD, Pharynx Normal, Tm's normal Respiratory: Yes: Chest Non-Tender, Lungs Clear, Normal Breath Sounds, No Respiratory Distress, No Accessory Muscle Use Neck: Yes: No masses,lesions,Nodules, Supple, Trachea in good position Breast: Yes: Within Normal Limits Cardiology: Yes: Regular Rhythm, Regular Rate, S1, S2 Abdominal: Yes: Normal Bowel Sounds, Non Tender, Flat, Soft Genitourinary: Yes: Within Normal Limits Back: Yes: Normal Inspection Musculoskeletal: Yes: full range of Motion, Gait Steady, Pelvis Stable Extremities: Yes: Normal Capillary Refill, Normal Inspection, Normal Range of Motion, Non-Tender 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: 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 NML intact, Fully Oriented, Alert, Motor Strength 5/5, Normal Mood/Affect, Normal Response Integumentary: Yes: Normal Color, Warm Lymphatic: Yes: Within Normal Limits - Diagnostic (1) Insomnia Status: Acute (2) Alcohol dependence with uncomplicated withdrawal Status: Acute (3) Cannabis dependence, uncomplicated Status: Chronic (4) Cocaine dependence, uncomplicated Status: Chronic (5) Depression Status: Chronic Qualifiers: Depression Type: unspecified Qualified Code(s): F32.9 - Major depressive disorder, single episode, unspecified (6) Nicotine dependence Status: Acute Qualifiers: Nicotine product type: cigarettes Substance use status: in withdrawal Qualified Code(s): F17.213 - Nicotine dependence, cigarettes, with withdrawal (7) Opioid dependence with withdrawal Status: Acute Cleared for Admission [facility] - Detox or Rehab [facility] Level of Care: Medically Managed Detox Regimen/Protocol: Methadone/Librium Claeared for Rehab Admission: No Screened but not Admitted - Documentation of Visit Screened but not Admitted: No Breathalyzer - Breathalyzer Breathalyzer: 0 Urine Drug Screen - Test Device Lot number: [id number] Expiration date: 12/23/20 - Control Is test valid?: Yes - Results Drug screen NEGATIVE: Yes Urine drug screen results: FEN-Fentanyl, MOP-Opiates Inpatient Rehab Admission - Rehab Decision to Admit Inpatient rehab admission?: No
[2019-06-01] MEDS ORDERED: chlordiazePOXIDE HCL 25 MG CAPSULE PO PRN (11:20)
[2019-06-01] MEDS ORDERED: MAG HYDROX/AL HYDROX/SIMETH 30 ML UNIT-DOSE CUP PO PRN (11:20)
[2019-06-01] MEDS ORDERED: MENTHOL/PHENOL 1 EACH UD MM PRN (11:20)
[2019-06-01] MEDS ORDERED: cloNIDine HCL 0.1 MG TABLET PO PRN (11:20)
[2019-06-01] MEDS ORDERED: hydrOXYzine PAMOATE 25 MG CAPSULE (FP) PO PRN (11:20)
[2019-06-01] MEDS ORDERED: MAGNESIUM CITRATE 300 ML BOTTLE PO PRN (11:20)
[2019-06-01] MEDS ORDERED: ACETAMINOPHEN 325 MG TABLET (FP) PO PRN ×2 (11:20)
[2019-06-01] MEDS ORDERED: BISMUTH SUBSALICYLATE 262 MG/15 ML BTL PO PRN (11:20)
[2019-06-01] MEDS ORDERED: MAGNESIUM HYDROX 2400MG/30ML ORAL SUSPENSION 30 ML CUP PO PRN (11:20)
[2019-06-01] MEDS ORDERED: METHADONE HCL 10 MG TABLET (FOR DETOX USE ONLY) PO ONE (12:15)
--- NOTE | 2019-06-01 12:28 | PN ---
S Progress Note Note: patient is allergic to librium,will change from methadone and librium to methadone and valium
[2019-06-01] MEDS: hydrOXYzine PAMOATE 25 MG CAPSULE (FP) PO PRN (12:37)
[2019-06-01 14:31] LABS: HEMATOCRIT 42.7 % (35.4-49); HEMOGLOBIN 14.1 GM/dL (11.7-16.9); MCH 28.9 pg (25.7-33.7); MCHC 32.9 g/dl (32.0-35.9); MEAN CELL VOLUME 87.8 fl (80-96); MEAN PLT VOLUME 10.8 fl (7.5-11.1); PLATELET COUNT 193 K/MM3 (134-434); RBC 4.86 M/mm3 (4.00-5.60); RDW 13.6 % (11.9-15.9); WHITE BLOOD COUNT 9.8 K/mm3 (4.0-10.0)
[2019-06-01] MEDS: diazePAM 5 MG TABLET PO SCH ×2 (15:01→22:44)
[2019-06-01 15:03] LABS: ALBUMIN 3.8 g/dl (3.4-5.0); BILIRUBIN,TOTAL 0.3 mg/dL (0.2-1); BLOOD UREA NITROGEN 15.8 mg/dL (7-18); CALCIUM 8.7 mg/dL (8.5-10.1); CREATININE 0.8 mg/dL (0.55-1.3); POTASSIUM 3.9 mmol/L (3.5-5.1); TOT PROT 7.3 g/dl (6.4-8.2)
[2019-06-01] MEDS: diazePAM 5 MG TABLET PO PRN (16:49)
[2019-06-01] MEDS: THIAMINE HCL 100 MG TABLET (FP) PO SCH (22:44)
[2019-06-02] MEDS: diazePAM 5 MG TABLET PO SCH ×3 (06:20→22:55)
[2019-06-02] MEDS ORDERED: METHADONE HCL 5 MG TABLET (FOR DETOX USE ONLY) ONE (09:22)
[2019-06-02] MEDS ORDERED: METHADONE HCL 10 MG TABLET (FOR DETOX USE ONLY) ONE (09:22)
[2019-06-02] MEDS ORDERED: METHADONE (DETOX) 20 MG, METHADONE (DETOX) 5 MG PO ONE (10:00)
[2019-06-02] MEDS: PRENATAL VITAMINS W/ FOLIC ACID TABLET (FP) PO SCH (10:20)
[2019-06-02] MEDS: NICOTINE 14 MG/24 HOURS TOPICAL PATCH TD SCH (10:21)
[2019-06-02] MEDS: diazePAM 5 MG TABLET PO PRN ×2 (10:22→16:52)
--- NOTE | 2019-06-02 10:38 | PN ---
S CIWA - CIWA Score Nausea/Vomitin-Mild Nausea/No Vomiting Muscle Tremors: 2 Anxiety: 3 Agitation: 1-Slight > Activity Paroxysmal Sweats: 2 Orientation: 0-Oriented Tacttile Disturbances: 1-Very Mild Itch/Numbness Auditory Disturbances: 0-None Visual Disturbances: 0-None Headache: 1-Very Mild CIWA-Ar Total Score: 11 [facility] COWS - Scale Resting Pulse: 0= [place] 80 or Below Sweatin= Chills/Flushing Restless Observation: 0= Sits Still Pupil Size: 1= Pupils >than Normal Bone or Joint Aches: 1= Mild Discomfort Runny Nose/ Eye Tearin= Nasal Congestion GI Upset > 30mins: 1= Stomach Cramp Tremor Observation of Outstretched Hands: 2= Slight Tremor Visible Yawning Observation: 0= None Anxiety or Irritability: 1=Feels Anxious/Irritable Goose Flesh Skin: 3=Piloerection COWS Score: 11 [facility] Progress Note (SOAP) Subjective: 29 years old male admitted on 06/01/19 for alcohol opiate withdrawal sx management treating with valium and methadone detox regimens feeling tired resting in bed limited conversation with staff encourage oral fluid Objective: 06/02/19 10:40 Vital Signs Temperature 97.8 F 06/02/19 09:14 Pulse Rate 73 06/02/19 09:14 Respiratory Rate 18 06/02/19 09:14 Blood Pressure 102/66 06/02/19 09:14 O2 Sat by Pulse Oximetry (%) Laboratory Last Values WBC 9.8 K/mm3 (4.0-10.0) 06/01/19 11:55 RBC 4.86 M/mm3 (4.00-5.60) 06/01/19 11:55 Hgb 14.1 GM/dL (11.7-16.9) 06/01/19 11:55 Hct 42.7 % (35.4-49) 06/01/19 11:55 MCV 87.8 fl (80-96) 06/01/19 11:55 MCH 28.9 pg (25.7-33.7) 06/01/19 11:55 MCHC 32.9 g/dl (32.0-35.9) 06/01/19 11:55 RDW 13.6 % (11.9-15.9) 06/01/19 11:55 Plt Count 193 K/MM3 (134-434) 06/01/19 11:55 MPV 10.8 fl (7.5-11.1) 06/01/19 11:55 Sodium 136 mmol/L (136-145) 06/01/19 11:55 Potassium 3.9 mmol/L (3.5-5.1) 06/01/19 11:55 Chloride 102 mmol/L (98-107) 06/01/19 11:55 Carbon Dioxide 27 mmol/L (21-32) 06/01/19 11:55 Anion Gap 6 MMOL/L (8-16) L 06/01/19 11:55 BUN 15.8 mg/dL (7-18) 06/01/19 11:55 Creatinine 0.8 mg/dL (0.55-1.3) 06/01/19 11:55 Est GFR (CKD-EPI)AfAm 139.91 06/01/19 11:55 Est GFR (CKD-EPI)NonAf 120.72 06/01/19 11:55 Random Glucose 105 mg/dL (74-106) 06/01/19 11:55 Calcium 8.7 mg/dL (8.5-10.1) 06/01/19 11:55 Total Bilirubin 0.3 mg/dL (0.2-1) 06/01/19 11:55 AST 25 U/L (15-37) 06/01/19 11:55 ALT 40 U/L (13-61) 06/01/19 11:55 Alkaline Phosphatase 82 U/L (45-117) 06/01/19 11:55 Total Protein 7.3 g/dl (6.4-8.2) 06/01/19 11:55 Albumin 3.8 g/dl (3.4-5.0) 06/01/19 11:55 RPR Titer Nonreactive (NONREACTIVE) 06/01/19 11:55 lab noted Assessment: 06/02/19 10:41 alcohol opiate withdrawal Plan: valium and methadone regimens
[2019-06-02] MEDS: hydrOXYzine PAMOATE 25 MG CAPSULE (FP) PO PRN (18:05)
[2019-06-02] MEDS: THIAMINE HCL 100 MG TABLET (FP) PO SCH (22:56)
[2019-06-03] MEDS ORDERED: chlordiazePOXIDE HCL 25 MG CAPSULE PO SCH (05:00)
[2019-06-03] MEDS: diazePAM 5 MG TABLET PO SCH ×2 (06:31→17:17)
[2019-06-03] MEDS: diazePAM 5 MG TABLET PO PRN ×3 (09:36→21:55)
[2019-06-03] MEDS: NICOTINE 14 MG/24 HOURS TOPICAL PATCH TD SCH (09:36)
[2019-06-03] MEDS: METHOCARBAMOL 500 MG TABLET PO PRN ×2 (09:36→21:56)
[2019-06-03] MEDS: PRENATAL VITAMINS W/ FOLIC ACID TABLET (FP) PO SCH (09:36)
[2019-06-03] MEDS ORDERED: METHADONE HCL 10 MG TABLET (FOR DETOX USE ONLY) PO ONE (10:00)
--- NOTE | 2019-06-03 10:52 | PN ---
S CIWA - CIWA Score Nausea/Vomitin-Mild Nausea/No Vomiting Muscle Tremors: None Anxiety: 2 Agitation: 1-Slight > Activity Paroxysmal Sweats: 1-Minimal Palms Moist Orientation: 0-Oriented Tacttile Disturbances: 1-Very Mild Itch/Numbness Auditory Disturbances: 0-None Visual Disturbances: 1-Very Mild Sensitivity Headache: 1-Very Mild CIWA-Ar Total Score: 8 [facility] COWS - Scale Resting Pulse: 0= [place] 80 or Below Sweatin= No chills or Flushing Restless Observation: 0= Sits Still Pupil Size: 0= Normal to Room Light Bone or Joint Aches: 1= Mild Discomfort Runny Nose/ Eye Tearin= Nasal Congestion GI Upset > 30mins: 2= Nausea/Diarrhea Tremor Observation of Outstretched Hands: 2= Slight Tremor Visible Yawning Observation: 1= 1-2x During Session Anxiety or Irritability: 1=Feels Anxious/Irritable Goose Flesh Skin: 0=Smooth Skin COWS Score: 8 [facility] Progress Note (SOAP) Subjective: 29 years old male admitted on 06/01/19 for alcohol and opiate withdrawal sx management treating with valium and methadone detox regimen feeling ok today encourage the patient to product picker narcan from pharmacy Objective: 06/03/19 10:53 Vital Signs Temperature 98.2 F 06/03/19 09:30 Pulse Rate 66 06/03/19 09:30 Respiratory Rate 18 06/03/19 09:30 Blood Pressure 93/62 06/03/19 09:30 O2 Sat by Pulse Oximetry (%) Laboratory Last Values WBC 9.8 K/mm3 (4.0-10.0) 06/01/19 11:55 RBC 4.86 M/mm3 (4.00-5.60) 06/01/19 11:55 Hgb 14.1 GM/dL (11.7-16.9) 06/01/19 11:55 Hct 42.7 % (35.4-49) 06/01/19 11:55 MCV 87.8 fl (80-96) 06/01/19 11:55 MCH 28.9 pg (25.7-33.7) 06/01/19 11:55 MCHC 32.9 g/dl (32.0-35.9) 06/01/19 11:55 RDW 13.6 % (11.9-15.9) 06/01/19 11:55 Plt Count 193 K/MM3 (134-434) 06/01/19 11:55 MPV 10.8 fl (7.5-11.1) 06/01/19 11:55 Sodium 136 mmol/L (136-145) 06/01/19 11:55 Potassium 3.9 mmol/L (3.5-5.1) 06/01/19 11:55 Chloride 102 mmol/L (98-107) 06/01/19 11:55 Carbon Dioxide 27 mmol/L (21-32) 06/01/19 11:55 Anion Gap 6 MMOL/L (8-16) L 06/01/19 11:55 BUN 15.8 mg/dL (7-18) 06/01/19 11:55 Creatinine 0.8 mg/dL (0.55-1.3) 06/01/19 11:55 Est GFR (CKD-EPI)AfAm 139.91 06/01/19 11:55 Est GFR (CKD-EPI)NonAf 120.72 06/01/19 11:55 Random Glucose 105 mg/dL (74-106) 06/01/19 11:55 Calcium 8.7 mg/dL (8.5-10.1) 06/01/19 11:55 Total Bilirubin 0.3 mg/dL (0.2-1) 06/01/19 11:55 AST 25 U/L (15-37) 06/01/19 11:55 ALT 40 U/L (13-61) 06/01/19 11:55 Alkaline Phosphatase 82 U/L (45-117) 06/01/19 11:55 Total Protein 7.3 g/dl (6.4-8.2) 06/01/19 11:55 Albumin 3.8 g/dl (3.4-5.0) 06/01/19 11:55 RPR Titer Nonreactive (NONREACTIVE) 06/01/19 11:55 lab noted Assessment: 06/03/19 10:53 alcohol and opiate withdrawal Plan: valium and methadone regimens
[2019-06-03] MEDS: hydrOXYzine PAMOATE 25 MG CAPSULE (FP) PO PRN ×2 (10:59→17:17)
[2019-06-03] MEDS: THIAMINE HCL 100 MG TABLET (FP) PO SCH (21:56)
[2019-06-03] MEDS: MELATONIN 5 MG TABLETS PO PRN (21:58)
[2019-06-04] MEDS ORDERED: chlordiazePOXIDE HCL 10 MG CAPSULE PO PRN
[2019-06-04] MEDS ORDERED: chlordiazePOXIDE HCL 10 MG CAPSULE PO SCH (05:00)
[2019-06-04] MEDS ORDERED: diazePAM 5 MG TABLET PO ONE (06:00)
[2019-06-04] MEDS ORDERED: METHADONE HCL 10 MG TABLET (FOR DETOX USE ONLY) ONE (08:50)
[2019-06-04] MEDS ORDERED: METHADONE HCL 5 MG TABLET (FOR DETOX USE ONLY) ONE (08:50)
[2019-06-04] MEDS: diazePAM 5 MG TABLET PO PRN ×3 (09:16→22:06)
[2019-06-04] MEDS: hydrOXYzine PAMOATE 25 MG CAPSULE (FP) PO PRN ×4 (09:17→22:07)
[2019-06-04] MEDS: PRENATAL VITAMINS W/ FOLIC ACID TABLET (FP) PO SCH (09:17)
[2019-06-04] MEDS: NICOTINE 14 MG/24 HOURS TOPICAL PATCH TD SCH (09:20)
[2019-06-04] MEDS ORDERED: METHADONE (DETOX) 10 MG, METHADONE (DETOX) 5 MG PO ONE (10:00)
[2019-06-04] MEDS: IBUPROFEN 400 MG TABLET (FP) PO PRN (11:05)
[2019-06-04] MEDS: METHOCARBAMOL 500 MG TABLET PO PRN ×2 (11:05→17:24)
--- NOTE | 2019-06-04 11:18 | PN ---
[facility] CIWA - CIWA Score Nausea/Vomitin-Mild Nausea/No Vomiting Muscle Tremors: 3 Anxiety: 2 Agitation: 2 Paroxysmal Sweats: 2 Orientation: 0-Oriented Tacttile Disturbances: 0-None Auditory Disturbances: 0-None Visual Disturbances: 0-None Headache: 0-None Present CIWA-Ar Total Score: 10 S COWS - Scale Resting Pulse: 1= [place] 81-100 Sweatin= Chills/Flushing Restless Observation: 1= Difficult to Sit Still Pupil Size: 0= Normal to Room Light Bone or Joint Aches: 1= Mild Discomfort Runny Nose/ Eye Tearin= Nasal Congestion GI Upset > 30mins: 1= Stomach Cramp Tremor Observation of Outstretched Hands: 1= Tremor [place], Not Seen Yawning Observation: 1= 1-2x During Session Anxiety or Irritability: 2=Irritable/Anxious Goose Flesh Skin: 0=Smooth Skin COWS Score: 10 [facility] Progress Note (SOAP) Subjective: 29 years old male admitted on 06/01/19 for alcohol and opiate withdrawal sx management treating with valium and methadone detox regimen- states he feels anxious and has sweats and chills- withdrawal sx O: Vital Signs - 24 hr 06/03/19 06/03/19 06/03/19 13:01 17:56 22:43 Temperature 96.9 F L 98.5 F 97.6 F Pulse Rate 54 L 86 68 Respiratory 18 18 18 Rate Blood Pressure 108/72 97/61 113/77 06/04/19 06/04/19 06/04/19 00:28 03:30 05:55 Temperature 97.5 F L Pulse Rate 53 L Respiratory 18 18 18 Rate Blood Pressure 99/64 06/04/19 09:15 Temperature 98.1 F Pulse Rate 64 Respiratory 16 Rate Blood Pressure 101/66 Laboratory Tests 06/01/19 06/01/19 06/01/19 11:55 11:55 11:55 WBC 9.8 RBC 4.86 Hgb 14.1 Hct 42.7 MCV 87.8 MCH 28.9 MCHC 32.9 RDW 13.6 Plt Count 193 MPV 10.8 Sodium 136 Potassium 3.9 Chloride 102 Carbon Dioxide 27 Anion Gap 6 L BUN 15.8 Creatinine 0.8 Est GFR (CKD-EPI)AfAm 139.91 Est GFR (CKD-EPI)NonAf 120.72 Random Glucose 105 Calcium 8.7 Total Bilirubin 0.3 AST 25 ALT 40 Alkaline Phosphatase 82 Total Protein 7.3 Albumin 3.8 RPR Titer Nonreactive labs and VS WNL a/p: continue detox regimens. Pt has prn meds for symptom control.. d/w pt intermediate frame tender MAT and rehab: to further discuss with counselor
[2019-06-04] MEDS: THIAMINE HCL 100 MG TABLET (FP) PO SCH (22:06)
[2019-06-04] MEDS: MELATONIN 5 MG TABLETS PO PRN (22:06)
[2019-06-05] MEDS ORDERED: chlordiazePOXIDE HCL 10 MG CAPSULE PO SCH (05:00)
[2019-06-05] MEDS: hydrOXYzine PAMOATE 25 MG CAPSULE (FP) PO PRN ×4 (07:49→20:12)
[2019-06-05] MEDS: diazePAM 5 MG TABLET PO PRN (07:49)
[2019-06-05] MEDS ORDERED: METHADONE HCL 10 MG TABLET (FOR DETOX USE ONLY) PO ONE (10:00)
[2019-06-05] MEDS: NICOTINE 14 MG/24 HOURS TOPICAL PATCH TD SCH (10:03)
[2019-06-05] MEDS: PRENATAL VITAMINS W/ FOLIC ACID TABLET (FP) PO SCH (10:03)
--- NOTE | 2019-06-05 10:47 | PN ---
[facility] CIWA - CIWA Score Nausea/Vomitin-No Nausea/No Vomiting Muscle Tremors: None Anxiety: 2 Agitation: 0-Normal Activity Paroxysmal Sweats: 2 Orientation: 0-Oriented Tacttile Disturbances: 0-None Auditory Disturbances: 0-None Visual Disturbances: 0-None Headache: 0-None Present CIWA-Ar Total Score: 4 S COWS - Scale Resting Pulse: 0= [place] 80 or Below Sweatin= Chills/Flushing Restless Observation: 0= Sits Still Pupil Size: 0= Normal to Room Light Bone or Joint Aches: 0= None Runny Nose/ Eye Tearin= None GI Upset > 30mins: 0= None Tremor Observation of Outstretched Hands: 0= None Yawning Observation: 0= None Anxiety or Irritability: 2=Irritable/Anxious Goose Flesh Skin: 0=Smooth Skin COWS Score: 3 [facility] Progress Note (SOAP) Subjective: c/o mild withdrawal symptoms. Objective: 06/05/19 10:45 Vital Signs 06/05/19 06/05/19 06:42 09:34 Temperature 97.5 F L 97.4 F L Pulse Rate 61 80 Respiratory 18 18 Rate Blood Pressure 96/62 118/78 Laboratory Last Values WBC 9.8 K/mm3 (4.0-10.0) 06/01/19 11:55 RBC 4.86 M/mm3 (4.00-5.60) 06/01/19 11:55 Hgb 14.1 GM/dL (11.7-16.9) 06/01/19 11:55 Hct 42.7 % (35.4-49) 06/01/19 11:55 MCV 87.8 fl (80-96) 06/01/19 11:55 MCH 28.9 pg (25.7-33.7) 06/01/19 11:55 MCHC 32.9 g/dl (32.0-35.9) 06/01/19 11:55 RDW 13.6 % (11.9-15.9) 06/01/19 11:55 Plt Count 193 K/MM3 (134-434) 06/01/19 11:55 MPV 10.8 fl (7.5-11.1) 06/01/19 11:55 Sodium 136 mmol/L (136-145) 06/01/19 11:55 Potassium 3.9 mmol/L (3.5-5.1) 06/01/19 11:55 Chloride 102 mmol/L (98-107) 06/01/19 11:55 Carbon Dioxide 27 mmol/L (21-32) 06/01/19 11:55 Anion Gap 6 MMOL/L (8-16) L 06/01/19 11:55 BUN 15.8 mg/dL (7-18) 06/01/19 11:55 Creatinine 0.8 mg/dL (0.55-1.3) 06/01/19 11:55 Est GFR (CKD-EPI)AfAm 139.91 06/01/19 11:55 Est GFR (CKD-EPI)NonAf 120.72 06/01/19 11:55 Random Glucose 105 mg/dL (74-106) 06/01/19 11:55 Calcium 8.7 mg/dL (8.5-10.1) 06/01/19 11:55 Total Bilirubin 0.3 mg/dL (0.2-1) 06/01/19 11:55 AST 25 U/L (15-37) 06/01/19 11:55 ALT 40 U/L (13-61) 06/01/19 11:55 Alkaline Phosphatase 82 U/L (45-117) 06/01/19 11:55 Total Protein 7.3 g/dl (6.4-8.2) 06/01/19 11:55 Albumin 3.8 g/dl (3.4-5.0) 06/01/19 11:55 RPR Titer Nonreactive (NONREACTIVE) 06/01/19 11:55 Labs noted. Assessment: 06/05/19 10:45 AOX3, in no acute respiratory distress. Full ROM, ambulating in the unit. Mild withdrawal symptoms. For d/c tomorrow. 06/05/19 10:46 Plan: continue detox. D/C in AM.
[2019-06-05] MEDS: METHOCARBAMOL 500 MG TABLET PO PRN ×2 (13:35→22:20)
[2019-06-05] MEDS: cloNIDine HCL 0.1 MG TABLET PO PRN (18:42)
[2019-06-05] MEDS: MELATONIN 5 MG TABLETS PO PRN (22:19)
[2019-06-05] MEDS: THIAMINE HCL 100 MG TABLET (FP) PO SCH (22:19)
[2019-06-06] MEDS: hydrOXYzine PAMOATE 25 MG CAPSULE (FP) PO PRN (03:07)
[2019-06-06] MEDS: IBUPROFEN 400 MG TABLET (FP) PO PRN (03:07)
[2019-06-06] MEDS ORDERED: chlordiazePOXIDE HCL 10 MG CAPSULE PO ONE (05:00)
[2019-06-06] MEDS ORDERED: METHADONE HCL 5 MG TABLET (FOR DETOX USE ONLY) PO ONE (06:00)
[2019-06-06] MEDS: cloNIDine HCL 0.1 MG TABLET PO PRN (06:00)
[2019-06-06 06:40] VITALS: BP 120/84; PULSE 72; TEMP 97.6
--- NOTE | 2019-06-06 08:56 | DS ---
[facility] Detox Discharge Summary Admission Date: 06/01/19 Discharge Date: 06/06/19 - History Present History: Alcohol Dependence, Opioid Dependence Additional Comments: 29 years old male admitted on 06/01/19 for alcohol and opiate withdrawal sx management treated wtih valium and methadone detox regimens completed detox regimen tolerated well alert oriented x 3 cardiac s1s2 regular rate rhythm respiratory clear lungs bilaterally on auscultation skin warm and dry - Physical Exam Results Vital Signs: Vital Signs Temperature 97.6 F 06/06/19 06:39 Pulse Rate 72 06/06/19 06:39 Respiratory Rate 18 06/06/19 06:39 Blood Pressure 120/84 06/06/19 06:39 O2 Sat by Pulse Oximetry (%) Pertinent Admission Physical Exam Findings: alcohol and opiate withdrawal Laboratory Last Values WBC 9.8 K/mm3 (4.0-10.0) 06/01/19 11:55 RBC 4.86 M/mm3 (4.00-5.60) 06/01/19 11:55 Hgb 14.1 GM/dL (11.7-16.9) 06/01/19 11:55 Hct 42.7 % (35.4-49) 06/01/19 11:55 MCV 87.8 fl (80-96) 06/01/19 11:55 MCH 28.9 pg (25.7-33.7) 06/01/19 11:55 MCHC 32.9 g/dl (32.0-35.9) 06/01/19 11:55 RDW 13.6 % (11.9-15.9) 06/01/19 11:55 Plt Count 193 K/MM3 (134-434) 06/01/19 11:55 MPV 10.8 fl (7.5-11.1) 06/01/19 11:55 Sodium 136 mmol/L (136-145) 06/01/19 11:55 Potassium 3.9 mmol/L (3.5-5.1) 06/01/19 11:55 Chloride 102 mmol/L (98-107) 06/01/19 11:55 Carbon Dioxide 27 mmol/L (21-32) 06/01/19 11:55 Anion Gap 6 MMOL/L (8-16) L 06/01/19 11:55 BUN 15.8 mg/dL (7-18) 06/01/19 11:55 Creatinine 0.8 mg/dL (0.55-1.3) 06/01/19 11:55 Est GFR (CKD-EPI)AfAm 139.91 06/01/19 11:55 Est GFR (CKD-EPI)NonAf 120.72 06/01/19 11:55 Random Glucose 105 mg/dL (74-106) 06/01/19 11:55 Calcium 8.7 mg/dL (8.5-10.1) 06/01/19 11:55 Total Bilirubin 0.3 mg/dL (0.2-1) 06/01/19 11:55 AST 25 U/L (15-37) 06/01/19 11:55 ALT 40 U/L (13-61) 06/01/19 11:55 Alkaline Phosphatase 82 U/L (45-117) 06/01/19 11:55 Total Protein 7.3 g/dl (6.4-8.2) 06/01/19 11:55 Albumin 3.8 g/dl (3.4-5.0) 06/01/19 11:55 RPR Titer Nonreactive (NONREACTIVE) 06/01/19 11:55 lab noted - Treatment Hospital Course: Detox Protocol Followed, Detoxed Safely, Responded well, Discharged Condition Good, Rehab Referral Accepted Patient has Accepted a Rehab Referral to: [facility] - Medication Discharge Medications: Ambulatory Orders Naloxone HCl [Narcan] 4 mg NS ASDIR PRN #1 spray 06/02/19 - Diagnosis (1) Alcohol dependence with uncomplicated withdrawal Status: Acute (2) Nicotine dependence Status: Acute Qualifiers: Nicotine product type: cigarettes Substance use status: in withdrawal Qualified Code(s): F17.213 - Nicotine dependence, cigarettes, with withdrawal (3) Opioid dependence with withdrawal Status: Acute - AMA Did Patient Leave Against Medical Advice: No CIWA Score - CIWA Score Nausea/Vomitin-No Nausea/No Vomiting Muscle Tremors: None Anxiety: 1-Mildly Anxious Agitation: 0-Normal Activity Paroxysmal Sweats: 1-Minimal Palms Moist Orientation: 0-Oriented Tacttile Disturbances: 0-None Auditory Disturbances: 0-None Visual Disturbances: 0-None Headache: 0-None Present CIWA-Ar Total Score: 2 COWS (PN) - Opiate Withdrawal Resting Pulse: 0= [place] 80 or Below Sweatin= Chills/Flushing Restless Observation: 0= Sits Still Pupil Size: 0= Normal to Room Light Bone or Joint Aches: 0= None Runny Nose/ Eye Tearin= None GI Upset > 30mins: 0= None Tremor Observation of Outstretched Hands: 0= None Yawning Observation: 0= None Anxiety or Irritability: 1=Feels Anxious/Irritable Goose Flesh Skin: 0=Smooth Skin COWS Score: 2
== END 2019-06-06 08:58 | disposition other institution (70) | DRG 773 ==
LOC: YASAS 09:00 → Y3N 11:40
PROVIDERS: ADMIT Allergy & Immunology; ATTEND Allergy & Immunology
PROC: HZ2ZZZZ Detoxification Services for Substance Abuse Treatment (ICD-10-PCS; principal; 2019-06-01)
DX: F10.230 Alcohol dependence with withdrawal, uncomplicated (principal); F11.23 Opioid dependence with withdrawal; F14.20 Cocaine dependence, uncomplicated; F12.20 Cannabis dependence, uncomplicated; F17.213 Nicotine dependence, cigarettes, with withdrawal; F32.9 Major depressive disorder, single episode, unspecified; G47.00 Insomnia, unspecified; Z88.8 Allergy status to other drugs, medicaments and biological substances
CPT/HCPCS: 36415; 80053; 85027; 86593; J0735

== ENCOUNTER 2019-07-19 19:23 | Inpatient (IN) | payer OTHER ==
--- NOTE | 2019-07-19 21:54 | BHS.RME ---
Substance Use & Tx History - Last Treatment Where was last treatment: Detox COWS - Scale Resting Pulse: 2= [place] 101-120 Sweatin=Flushed/Facial Moisture Restless Observation: 0= Sits Still Pupil Size: 0= Normal to Room Light Bone or Joint Aches: 4=Acute Joint/Muscle Pain Runny Nose/ Eye Tearin= Runny Nose/Eyes GI Upset > 30mins: 1= Stomach Cramp Tremor Observation: 2= Slight Tremor Visible Yawning Observation: 0= None Anxiety or Irritability: 2=Irritable/Anxious Goose Flesh Skin: 0=Smooth Skin COWS Score: 15 CIWA Nausea/Vomitin Muscle Tremors: 3 Anxiety: 3 Agitation: 0-Normal Activity Paroxysmal Sweats: 2 Orientation: 0-Oriented Tacttile Disturbances: 0-None Auditory Disturbances: 0-None Visual Disturbances: 0-None Headache: 3-Moderate CIWA-Ar Total Score: 13
[2019-07-19 22:09] VITALS: BMI 29.0
--- NOTE | 2019-07-19 22:51 | HP ---
COWS - Scale Resting Pulse: 2= [place] 101-120 Sweatin=Flushed/Facial Moisture Restless Observation: 0= Sits Still Pupil Size: 0= Normal to Room Light Bone or Joint Aches: 4=Acute Joint/Muscle Pain Runny Nose/ Eye Tearin= Runny Nose/Eyes GI Upset > 30mins: 1= Stomach Cramp Tremor Observation: 2= Slight Tremor Visible Yawning Observation: 0= None Anxiety or Irritability: 2=Irritable/Anxious Goose Flesh Skin: 0=Smooth Skin COWS Score: 15 CIWA Score - Admission Criteria [facility] Guidelines: Admission for Medically Managed Detox: Requires at least one of the followin. CIWA greater than 12 2. Seizures within the past 24 hours 3. Delirium tremens within the past 24 hours 4. Hallucinations within the past 24 hours 5. Acute intervention needed for co occurring medical disorder 6. Acute intervention needed for co occurring psychiatric disorder 7. Severe withdrawal that cannot be handled at a lower level of care (continued vomiting, continued diarrhea, abnormal vital signs) requiring intravenous medication and/or fluids 8. Admitting History and Physical - Past Surgical History Past Surgical History: Yes: None - Smoking History Smoking history: Current every day smoker Have you smoked in the past 12 months: Yes Aproximately how many cigarettes per day: 20 - Alcohol/Substance Use Hx Alcohol Use: Yes History of Substance Use: reports: Heroin - Social History ADL: Independent Occupation: unemployed History of Recent Travel: Yes Admission [facility] Allergies/Adverse Reactions: Allergies Allergy/AdvReac Type Severity Reaction Status Date / Time chlordiazepoxide Allergy Mild Vomiting Verified 07/19/19 22:05 [From Librium] Patient History - Patient Medical History Hx Anemia: No Hx Asthma: No Hx Chronic Obstructive Pulmonary Disease (COPD): No Hx Cancer: No Hx Cardiac Disorders: No Hx Congestive Heart Failure: No Hx Hypertension: No Hx Hypercholesterolemia: No Hx Pacemaker: No HX Cerebrovascular Accident: No Hx Seizures: No Hx Dementia: No Hx Diabetes: No Hx Gastrointestinal Disorders: No Hx Liver Disease: No Hx Genitourinary Disorders: No Hx Sexually Transmitted Disorders: No Hx Renal Disease (ESRD): No Hx Thyroid Disease: No Hx Human Immunodeficiency Virus (HIV): No Hx Hepatitis C: No ( ) Hx Depression: No Hx Suicide Attempt: No Hx Bipolar Disorder: No Hx Schizophrenia: No - Patient Surgical History Past Surgical History: No Hx Neurologic Surgery: No Hx Cataract Extraction: No Hx Cardiac Surgery: No Hx Lung Surgery: No Hx Breast Surgery: No Hx Breast Biopsy: No Hx Abdominal Surgery: No Hx Appendectomy: No Hx Cholecystectomy: No Hx Genitourinary Surgery: No Hx Section: No Hx Orthopedic Surgery: No Anesthesia Reaction: No - PPD History Previous Implant?: Yes Documented Results: Negative w/proof Date: 12/02/18 Results: 0MM - Smoking Cessation Smoking history: Current every day smoker Have you smoked in the past 12 months: Yes Aproximately how many cigarettes per day: 20 Cigars Per Day: 0 Hx Chewing Tobacco Use: No - Substances abused Other Other (specify): FENTNYL Substance route: Inhalation Frequency: Daily Amount used: 1 BUNDLE Age of first use: 27 Date of last use: 07/18/19 Alcohol Substance route: Oral Frequency: Daily Amount used: 1 PINT OF LIQUOR Age of first use: 18 Date of last use: 07/18/19 Alprazolam (Xanax) Substance route: Inhalation Frequency: Daily Amount used: 4 MG/DAY Age of first use: 29 Date of last use: 07/18/19 Admission Physical Exam BHS - Vital Signs Vital Signs: Vital Signs - 24 hr 07/19/19 22:05 Temperature 97.6 F Pulse Rate 101 H Respiratory 20 Rate Blood Pressure 137/87 Breathalyzer - Breathalyzer Breathalyzer: 0 Urine Drug Screen - Test Device Lot number: [id number] Expiration date: 12/23/20 - Control Is test valid?: Yes - Results Drug screen NEGATIVE: Yes Urine drug screen results: FEN-Fentanyl, MOP-Opiates
--- NOTE | 2019-07-19 23:04 | HP ---
COWS - Scale Resting Pulse: 2= [place] 101-120 Sweatin=Flushed/Facial Moisture Restless Observation: 0= Sits Still Pupil Size: 0= Normal to Room Light Bone or Joint Aches: 4=Acute Joint/Muscle Pain Runny Nose/ Eye Tearin= Runny Nose/Eyes GI Upset > 30mins: 1= Stomach Cramp Tremor Observation: 2= Slight Tremor Visible Yawning Observation: 0= None Anxiety or Irritability: 2=Irritable/Anxious Goose Flesh Skin: 0=Smooth Skin COWS Score: 15 CIWA Score Nausea/Vomitin Muscle Tremors: 3 Anxiety: 3 Agitation: 0-Normal Activity Paroxysmal Sweats: 2 Orientation: 0-Oriented Tacttile Disturbances: 0-None Auditory Disturbances: 0-None Visual Disturbances: 0-None Headache: 3-Moderate CIWA-Ar Total Score: 13 - Admission Criteria OASAS Guidelines: Admission for Medically Managed Detox: Requires at least one of the followin. CIWA greater than 12 2. Seizures within the past 24 hours 3. Delirium tremens within the past 24 hours 4. Hallucinations within the past 24 hours 5. Acute intervention needed for co occurring medical disorder 6. Acute intervention needed for co occurring psychiatric disorder 7. Severe withdrawal that cannot be handled at a lower level of care (continued vomiting, continued diarrhea, abnormal vital signs) requiring intravenous medication and/or fluids 8. Admitting History and Physical - Past Surgical History Past Surgical History: Yes: None - Smoking History Smoking history: Current every day smoker Have you smoked in the past 12 months: Yes Aproximately how many cigarettes per day: 20 - Alcohol/Substance Use History of Substance Use: reports: Heroin - Social History ADL: Independent Occupation: unemployed History of Recent Travel: Yes Admission ROS [facility] Chief Complaint: Seeking admission to detox from alcohol and opioid Allergies/Adverse Reactions: Allergies Allergy/AdvReac Type Severity Reaction Status Date / Time chlordiazepoxide Allergy Mild Vomiting Verified 07/19/19 22:05 [From Librium] History of Present Illness: 29 years old male with 2 years of fentanyl dependence and eleven years of alcohol dependence is seeking admission to detox. Patient reports insignificant period of sobriety. He denies medical history, psych. history and suicidal ideation at this time. 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 Exam Limitations: No Limitations - Ebola screening Have you traveled outside of the country in the last 21 days: No Have you had contact with anyone from an Ebola affected area: No Do you have a fever: No - Review of Systems Constitutional: Chills, Malaise, Night Sweats, Changes in sleep EENT: reports: Sinus Pressure Respiratory: reports: No Symptoms reported Cardiac: reports: No Symptoms Reported GI: reports: Nausea, Poor Appetite, Poor Fluid Intake, Abdominal cramping : reports: No Symptoms Reported Musculoskeletal: reports: Back Pain, Joint Pain, Muscle Pain Integumentary: reports: Dryness Neuro: reports: Headache, Tremors Endocrine: reports: No Symptoms Reported Hematology: reports: No Symptoms Reported Psychiatric: reports: Mood/Affect Appropiate, Orientated x3, Anxious, Depressed Other Systems: Reviewed and Negative Patient History - Patient Medical History Hx Anemia: No Hx Asthma: No Hx Chronic Obstructive Pulmonary Disease (COPD): No Hx Cancer: No Hx Cardiac Disorders: No Hx Congestive Heart Failure: No Hx Hypertension: No Hx Hypercholesterolemia: No Hx Pacemaker: No HX Cerebrovascular Accident: No Hx Seizures: No Hx Dementia: No Hx Diabetes: No Hx Gastrointestinal Disorders: No Hx Liver Disease: No Hx Genitourinary Disorders: No Hx Sexually Transmitted Disorders: No Hx Renal Disease (ESRD): No Hx Thyroid Disease: No Hx Human Immunodeficiency Virus (HIV): No (Negative 2019) Hx Hepatitis C: No ( ) Hx Depression: No Hx Suicide Attempt: No (Denies [id number] [id number]) Hx Bipolar Disorder: No Hx Schizophrenia: No - Patient Surgical History Past Surgical History: No Hx Neurologic Surgery: No Hx Cataract Extraction: No Hx Cardiac Surgery: No Hx Lung Surgery: No Hx Abdominal Surgery: No Hx Appendectomy: No Hx Cholecystectomy: No Hx Genitourinary Surgery: No Hx Orthopedic Surgery: No Anesthesia Reaction: No - PPD History Previous Implant?: Yes Documented Results: Negative w/proof Implanted On Prior [facility] Admission?: Yes Date: 12/02/18 Results: 0MM PPD to be Administered?: No - Reproductive History Patient is a Female of Child Bearing Age (11 -55 yrs old): No (m,rocio) - Smoking Cessation Smoking history: Current every day smoker Have you smoked in the past 12 months: Yes Aproximately how many cigarettes per day: 20 Cigars Per Day: 0 Hx Chewing Tobacco Use: No Initiated information on smoking cessation: Yes 'Breaking Loose' booklet given: 07/19/19 - Substance & Tx. History Hx Alcohol Use: Yes Hx Substance Use: Yes Substance Use Type: Alcohol, Opiates Hx Substance Use Treatment: Yes ([facility]) - Substances abused Other Other (specify): FENTNYL Substance route: Inhalation Frequency: Daily Amount used: 1 BUNDLE (10 bags) Age of first use: 27 Date of last use: 07/18/19 Alcohol Substance route: Oral Frequency: Daily Amount used: 1 PINT OF LIQUOR Age of first use: 18 Date of last use: 07/18/19 Alprazolam (Xanax) Substance route: Inhalation Frequency: Daily Amount used: 4 MG/DAY Age of first use: 29 Date of last use: 07/18/19 Admission Physical Exam [facility] - Vital Signs Vital Signs: Vital Signs - 24 hr 07/19/19 22:05 Temperature 97.6 F Pulse Rate 101 H Respiratory 20 Rate Blood Pressure 137/87 - Physical General Appearance: Yes: Moderate Distress, Tremorous, Sweating, Anxious HEENTM: Yes: Within Normal Limits Respiratory: Yes: Lungs Clear, Normal Breath Sounds, No Respiratory Distress Neck: Yes: Within Normal Limits Breast: Yes: Breast Exam Deferred Cardiology: Yes: Tachycardia Abdominal: Yes: Within Normal Limits Genitourinary: Yes: Within Normal Limits Back: Yes: Normal Inspection Musculoskeletal: Yes: Back pain, Muscle Pain Extremities: Yes: Normal Inspection 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: Yes: Within Normal Limits, Alert, Normal Mood/Affect Integumentary: Yes: Warm Lymphatic: Yes: Within Normal Limits - Diagnostic (1) Sedative, hypnotic or anxiolytic dependence with withdrawal, uncomplicated Current Visit: Yes Status: Acute (2) Alcohol dependence with uncomplicated withdrawal Current Visit: Yes Status: Acute (3) Nicotine dependence Current Visit: Yes Status: Chronic Qualifiers: Nicotine product type: cigarettes Substance use status: in withdrawal Qualified Code(s): F17.213 - Nicotine dependence, cigarettes, with withdrawal (4) Opioid dependence with withdrawal Current Visit: Yes Status: Acute Cleared for Admission [facility] - Detox or Rehab [facility] Level of Care: Medically Managed Detox Regimen/Protocol: Methadone/Valium Claeared for Rehab Admission: No Breathalyzer - Breathalyzer Breathalyzer: 0 Urine Drug Screen - Test Device Lot number: [id number] Expiration date: 12/23/20 - Control Is test valid?: Yes - Results Drug screen NEGATIVE: Yes Urine drug screen results: FEN-Fentanyl, MOP-Opiates Inpatient Rehab Admission - Rehab Decision to Admit Inpatient rehab admission?: No
[2019-07-19] MEDS ORDERED: NICOTINE POLACRILEX 2 MG GUM BUC PRN (23:12)
[2019-07-19] MEDS ORDERED: METHOCARBAMOL 500 MG TABLET PO PRN (23:12)
[2019-07-19] MEDS ORDERED: ACETAMINOPHEN 325 MG TABLET (FP) PO PRN ×2 (23:12)
[2019-07-19] MEDS ORDERED: MAGNESIUM HYDROX 2400MG/30ML ORAL SUSPENSION 30 ML CUP PO PRN (23:12)
[2019-07-19] MEDS ORDERED: MENTHOL/PHENOL 1 EACH UD MM PRN (23:12)
[2019-07-19] MEDS ORDERED: METHADONE HCL 10 MG TABLET (FOR DETOX USE ONLY) PO ONE (23:12)
[2019-07-19] MEDS ORDERED: cloNIDine HCL 0.1 MG TABLET PO PRN (23:12)
[2019-07-19] MEDS ORDERED: IBUPROFEN 400 MG TABLET (FP) PO PRN (23:12)
[2019-07-19] MEDS ORDERED: BISMUTH SUBSALICYLATE 524 MG/30 ML UD PO PRN (23:12)
[2019-07-19] MEDS ORDERED: MAGNESIUM CITRATE 300 ML BOTTLE PO PRN (23:12)
[2019-07-19] MEDS ORDERED: MAG HYDROX/AL HYDROX/SIMETH 30 ML UNIT-DOSE CUP PO PRN (23:12)
[2019-07-19] MEDS: diazePAM 5 MG TABLET PO SCH (23:57)
[2019-07-20] MEDS ORDERED: METHADONE HCL 10 MG TABLET (FOR DETOX USE ONLY) ONE (04:21)
[2019-07-20] MEDS ORDERED: METHADONE HCL 5 MG TABLET (FOR DETOX USE ONLY) ONE (04:21)
[2019-07-20] MEDS ORDERED: METHADONE (DETOX) 20 MG, METHADONE (DETOX) 5 MG PO ONE (06:00)
[2019-07-20] MEDS: diazePAM 5 MG TABLET PO SCH ×3 (06:50→22:50)
--- NOTE | 2019-07-20 09:42 | EKG ---
Test Reason : Blood Pressure : / mmHG Vent. Rate : 097 BPM Atrial Rate : 097 BPM P-R Int : 166 ms QRS Dur : 092 ms QT Int : 350 ms P-R-T Axes : 058 067 031 degrees QTc Int : 444 ms NORMAL SINUS RHYTHM NORMAL ECG WHEN COMPARED WITH ECG OF 10-MAY-2019 09:00, NO SIGNIFICANT CHANGE WAS FOUND Confirmed by Humberto Beckman MD ([id number]) on 07/20/2019 9:42:08 AM Referred By: Confirmed By:Humberto Beckman MD
[2019-07-20] MEDS: NICOTINE 21 MG/24 HOURS TOPICAL PATCH TD SCH (10:28)
[2019-07-20] MEDS: PRENATAL VITAMINS W/ FOLIC ACID TABLET (FP) PO SCH (10:29)
--- NOTE | 2019-07-20 11:52 | PN ---
[facility] CIWA - CIWA Score Nausea/Vomitin Muscle Tremors: 3 Anxiety: 3 Agitation: 3 Paroxysmal Sweats: 1-Minimal Palms Moist Orientation: 0-Oriented Tacttile Disturbances: 1-Very Mild Itch/Numbness Auditory Disturbances: 0-None Visual Disturbances: 0-None Headache: 1-Very Mild CIWA-Ar Total Score: 14 [facility] COWS - Scale Resting Pulse: 0= [place] 80 or Below Sweatin= No chills or Flushing Restless Observation: 1= Difficult to Sit Still Pupil Size: 1= Pupils >than Normal Bone or Joint Aches: 2= Severe Diffuse Aches Runny Nose/ Eye Tearin= Nasal Congestion GI Upset > 30mins: 1= Stomach Cramp Tremor Observation of Outstretched Hands: 2= Slight Tremor Visible Yawning Observation: 1= 1-2x During Session Anxiety or Irritability: 2=Irritable/Anxious Goose Flesh Skin: 0=Smooth Skin COWS Score: 11 [facility] Progress Note (SOAP) Subjective: alert,irritable,anxious,interrupted sleep,pain in the body and back Objective: 07/20/19 11:50 Vital Signs Temperature 99.1 F 07/20/19 09:18 Pulse Rate 75 07/20/19 09:18 Respiratory Rate 18 07/20/19 09:18 Blood Pressure 100/68 07/20/19 09:18 O2 Sat by Pulse Oximetry (%) Assessment: 07/20/19 11:51 withdrawal symptom Plan: continue detox methadone and valium regimen
[2019-07-20] MEDS: diazePAM 5 MG TABLET PO PRN (20:14)
[2019-07-20] MEDS: MELATONIN 5 MG TABLETS PO PRN (22:50)
[2019-07-20] MEDS: THIAMINE HCL 100 MG TABLET (FP) PO SCH (22:51)
[2019-07-21] MEDS ORDERED: METHADONE HCL 10 MG TABLET (FOR DETOX USE ONLY) PO ONE (06:00)
[2019-07-21] MEDS: diazePAM 5 MG TABLET PO SCH ×2 (06:12→17:15)
[2019-07-21] MEDS: PRENATAL VITAMINS W/ FOLIC ACID TABLET (FP) PO SCH (10:44)
[2019-07-21] MEDS: NICOTINE 21 MG/24 HOURS TOPICAL PATCH TD SCH (10:44)
[2019-07-21] MEDS ORDERED: AZITHROMYCIN 250 MG TABLET PO ONE (11:20)
[2019-07-21] MEDS ORDERED: ALBUTEROL SO4 HFA INHALER IH PRN (11:22)
--- NOTE | 2019-07-21 11:26 | PN ---
S CIWA - CIWA Score Nausea/Vomitin Muscle Tremors: 1-None Visible, but [place] Anxiety: 1-Mildly Anxious Agitation: 1-Slight > Activity Paroxysmal Sweats: 3 Orientation: 0-Oriented Tacttile Disturbances: 1-Very Mild Itch/Numbness Auditory Disturbances: 0-None Visual Disturbances: 0-None Headache: 0-None Present CIWA-Ar Total Score: 9 BHS COWS - Scale Resting Pulse: 0= [place] 80 or Below Sweatin= Chills/Flushing Restless Observation: 1= Difficult to Sit Still Pupil Size: 1= Pupils >than Normal Bone or Joint Aches: 1= Mild Discomfort Runny Nose/ Eye Tearin= Nasal Congestion GI Upset > 30mins: 2= Nausea/Diarrhea Tremor Observation of Outstretched Hands: 1= Tremor [place], Not Seen Yawning Observation: 0= None Anxiety or Irritability: 1=Feels Anxious/Irritable Goose Flesh Skin: 0=Smooth Skin COWS Score: 9 [facility] Progress Note (SOAP) Subjective: iinterrupted sleep, sweats, nausea, cough, phelgm yellow, Objective: 07/21/19 11:29 Vital Signs Temperature 98.1 F 07/21/19 10:51 Pulse Rate 73 07/21/19 10:51 Respiratory Rate 18 07/21/19 10:51 Blood Pressure 114/72 07/21/19 10:51 O2 Sat by Pulse Oximetry (%) pending labs pt lying in bed in nad skin + excoriations with ulcers on forearms lungs mild rhonchil at bases Assessment: 07/21/19 11:31 withdrawal sx's mild bronchitis skin excoriations Plan: cont. detox increase fluids zpack bacitracin oint to arms gingerale albuterol inhalor
[2019-07-21] MEDS: diazePAM 5 MG TABLET PO PRN ×2 (12:23→19:20)
[2019-07-21] MEDS: NICOTINE POLACRILEX 4 MG GUM BUC PRN (17:17)
[2019-07-21] MEDS: THIAMINE HCL 100 MG TABLET (FP) PO SCH (22:50)
[2019-07-22] MEDS ORDERED: METHADONE HCL 5 MG TABLET (FOR DETOX USE ONLY) ONE (04:20)
[2019-07-22] MEDS ORDERED: METHADONE HCL 10 MG TABLET (FOR DETOX USE ONLY) ONE (04:20)
[2019-07-22] MEDS ORDERED: diazePAM 5 MG TABLET PO ONE (06:00)
[2019-07-22] MEDS ORDERED: METHADONE (DETOX) 10 MG, METHADONE (DETOX) 5 MG PO ONE (06:00)
[2019-07-22] MEDS ORDERED: AZITHROMYCIN 250 MG TABLET PO SCH (10:00)
[2019-07-22] MEDS ORDERED: ONDANSETRON *ODT* 4 MG TABLET SL PRN (10:48)
--- NOTE | 2019-07-22 10:50 | PN ---
[facility] CIWA - CIWA Score Nausea/Vomitin-Mild Nausea/No Vomiting Muscle Tremors: 2 Anxiety: 1-Mildly Anxious Agitation: 1-Slight > Activity Paroxysmal Sweats: 1-Minimal Palms Moist Orientation: 0-Oriented Tacttile Disturbances: 0-None Auditory Disturbances: 0-None Visual Disturbances: 0-None Headache: 1-Very Mild CIWA-Ar Total Score: 7 BHS COWS - Scale Resting Pulse: 0= [place] 80 or Below Sweatin= Chills/Flushing Restless Observation: 1= Difficult to Sit Still Pupil Size: 0= Normal to Room Light Bone or Joint Aches: 1= Mild Discomfort Runny Nose/ Eye Tearin= Nasal Congestion GI Upset > 30mins: 1= Stomach Cramp Tremor Observation of Outstretched Hands: 1= Tremor [place], Not Seen Yawning Observation: 1= 1-2x During Session Anxiety or Irritability: 1=Feels Anxious/Irritable Goose Flesh Skin: 0=Smooth Skin COWS Score: 8 [facility] Progress Note (SOAP) Subjective: pt admitted for alcohol and opiate detox O: Vital Signs - 24 hr 07/21/19 07/21/19 07/21/19 10:51 12:15 16:56 Temperature 98.1 F 98.1 F 99 F Pulse Rate 73 75 87 Respiratory 18 18 20 Rate Blood Pressure 114/72 122/77 130/77 07/21/19 07/22/19 07/22/19 20:41 00:30 07:10 Temperature 98.8 F 96.7 F L Pulse Rate 91 H 65 Respiratory 18 18 16 Rate Blood Pressure 115/76 97/67 labs pending a/p AUD- continue detox protocol OUD- continue detox protocol- d/w pt half-way MAT with methadone or suboxone
[2019-07-22] MEDS: PRENATAL VITAMINS W/ FOLIC ACID TABLET (FP) PO SCH (11:06)
[2019-07-22] MEDS: NICOTINE POLACRILEX 4 MG GUM BUC PRN (12:29)
[2019-07-22] MEDS: diazePAM 5 MG TABLET PO PRN ×2 (13:58→21:20)
[2019-07-22] MEDS: THIAMINE HCL 100 MG TABLET (FP) PO SCH (22:27)
[2019-07-22] MEDS: MELATONIN 5 MG TABLETS PO PRN (22:27)
[2019-07-23] MEDS ORDERED: METHADONE HCL 10 MG TABLET (FOR DETOX USE ONLY) PO ONE ×2 (06:00→11:22)
[2019-07-23] MEDS: PRENATAL VITAMINS W/ FOLIC ACID TABLET (FP) PO SCH (11:01)
--- NOTE | 2019-07-23 11:24 | PN ---
[facility] CIWA - CIWA Score Nausea/Vomitin Muscle Tremors: 1-None Visible, but [place] Anxiety: 1-Mildly Anxious Agitation: 1-Slight > Activity Paroxysmal Sweats: 2 Orientation: 0-Oriented Tacttile Disturbances: 1-Very Mild Itch/Numbness Auditory Disturbances: 0-None Visual Disturbances: 0-None Headache: 0-None Present CIWA-Ar Total Score: 8 [facility] COWS - Scale Resting Pulse: 0= [place] 80 or Below Sweatin= Chills/Flushing Restless Observation: 1= Difficult to Sit Still Pupil Size: 1= Pupils >than Normal Bone or Joint Aches: 1= Mild Discomfort Runny Nose/ Eye Tearin= Nasal Congestion GI Upset > 30mins: 2= Nausea/Diarrhea Tremor Observation of Outstretched Hands: 1= Tremor [place], Not Seen Yawning Observation: 0= None Anxiety or Irritability: 1=Feels Anxious/Irritable Goose Flesh Skin: 0=Smooth Skin COWS Score: 9 [facility] Progress Note (SOAP) Subjective: interrupted sleep, Objective: 07/23/19 11:30 Vital Signs Temperature 97.1 F L 07/23/19 09:20 Pulse Rate 89 07/23/19 09:20 Respiratory Rate 16 07/23/19 09:20 Blood Pressure 114/89 07/23/19 09:20 O2 Sat by Pulse Oximetry (%) pending labs pt aox3 in nad ambulating Assessment: 07/23/19 11:31 withdrawal sx's Plan: contr. detox increase fluids d/c in am
--- NOTE | 2019-07-23 15:54 | DS ---
[facility] Detox Discharge Summary Admission Date: 07/19/19 Discharge Date: 07/23/19 - History Present History: Alcohol Dependence, Cannabis Dependence, Cocaine Dependence, Opioid Dependence - Physical Exam Results Vital Signs: Vital Signs Temperature 97.1 F L 07/23/19 13:00 Pulse Rate 83 07/23/19 13:00 Respiratory Rate 18 07/23/19 13:00 Blood Pressure 116/97 07/23/19 13:00 O2 Sat by Pulse Oximetry (%) pt aox3 in nad aqmbulating and appearing well wants early d/c skin clear , anicteric lungs clear to a/p corrr abd benign neuro intact time spent on d/c 35minutes. - Treatment Hospital Course: Detox Protocol Followed, Detoxed Safely, Responded well, Discharged Condition Good - Medication Discharge Medications: Ambulatory Orders NK [No Known Home Medication] 07/19/19 - Diagnosis (1) Alcohol dependence with uncomplicated withdrawal Current Visit: Yes Status: Chronic (2) Opioid dependence with withdrawal Current Visit: Yes Status: Chronic (3) Sedative, hypnotic or anxiolytic dependence with withdrawal, uncomplicated Current Visit: Yes Status: Chronic (4) Cannabis dependence, uncomplicated Current Visit: No Status: Chronic (5) Cocaine dependence, uncomplicated Current Visit: No Status: Chronic - AMA Did Patient Leave Against Medical Advice: No
[2019-07-23 17:45] VITALS: BP 129/77; PULSE 103; TEMP 98.4
[2019-07-24] MEDS ORDERED: METHADONE HCL 5 MG TABLET (FOR DETOX USE ONLY) PO ONE (06:00)
== END 2019-07-23 16:55 | disposition home or self-care (01) | DRG 773 ==
LOC: YASAS 19:23 → Y6N 23:03
PROVIDERS: ADMIT Allergy & Immunology; ATTEND Allergy & Immunology
PROC: HZ2ZZZZ Detoxification Services for Substance Abuse Treatment (ICD-10-PCS; principal; 2019-07-19)
DX: F10.230 Alcohol dependence with withdrawal, uncomplicated (principal); F11.23 Opioid dependence with withdrawal; F13.230 Sedative, hypnotic or anxiolytic dependence with withdrawal, uncomplicated; F14.20 Cocaine dependence, uncomplicated; F12.20 Cannabis dependence, uncomplicated; F17.210 Nicotine dependence, cigarettes, uncomplicated; J40 Bronchitis, not specified as acute or chronic; L98.8 Other specified disorders of the skin and subcutaneous tissue; L98.499 Non-pressure chronic ulcer of skin of other sites with unspecified severity
CPT/HCPCS: 93005; 93010

== ENCOUNTER 2021-01-29 17:29 | Emergency (ER) | payer OTHER ==
[2021-01-29 17:34] VITALS: BP 140/94; BMI 31.3
[2021-01-29 18:13] VITALS: TEMP 98.9
[2021-01-29 19:10] VITALS: PULSE 89
== END 2021-01-29 19:10 | disposition home or self-care (01) ==
LOC: JER 17:29 → JERFT 17:29 → JER 19:10
DX: R00.0 Tachycardia, unspecified (principal)
CPT/HCPCS: 93005; 93010; 99283-25; C9803; U0003; U0005

== ENCOUNTER 2021-01-29 21:42 | Emergency (ER) | payer OTHER ==
[2021-01-29 21:47] VITALS: BP 129/90; PULSE 98; TEMP 98.2; BMI 31.3
== END 2021-01-30 02:46 | disposition home or self-care (01) ==
LOC: JER 21:42 → JERFT 21:42 → JER 01-30 02:46
DX: Z11.52 Encounter for screening for COVID-19 (principal)
CPT/HCPCS: 99283-25; C9803; U0003; U0005

== ENCOUNTER 2022-10-17 00:50 | Emergency (ER) | payer OTHER ==
[2022-10-17 00:59] VITALS: BP 123/81; PULSE 82; RESP 18; TEMP 98.1; BMI 32.8
[2022-10-17] MEDS ORDERED: KETOROLAC TROMETHAMINE 30 MG/1 ML VIAL IM ONE (01:13)
[2022-10-17] MEDS ORDERED: AMOX TR/POT CLAV 875MG/125MG TABLETS (FP) PO ONE (01:14)
[2022-10-17] MEDS ORDERED: KETOROLAC TROMETHAMINE 30 MG/1 ML VIAL ONE (01:23)
== END 2022-10-17 02:27 | disposition home or self-care (01) ==
LOC: JER 00:50
PROC: 3E0233Z Introduction of Anti-inflammatory into Muscle, Percutaneous Approach (ICD-10-PCS; principal; 2022-10-17)
DX: K08.89 Other specified disorders of teeth and supporting structures (principal); K02.9 Dental caries, unspecified
CPT/HCPCS: 99283-25

== ENCOUNTER 2022-10-17 22:25 | Emergency (ER) | payer OTHER ==
[2022-10-17 22:31] VITALS: BP 157/109; PULSE 77; RESP 20; TEMP 97.9; BMI 34.4
[2022-10-17] MEDS ORDERED: BUPIVACAINE HCL/PF 0.5% (5MG/ML) 10 ML VIAL ONE (23:10)
[2022-10-17] MEDS ORDERED: LIDOCAINE HCL/PF 1% SDV 5ML VIAL ONE (23:10)
== END 2022-10-17 23:33 | disposition home or self-care (01) ==
LOC: JERFT 22:25
PROC: 3E0T3BZ Introduction of Anesthetic Agent into Peripheral Nerves and Plexi, Percutaneous Approach (ICD-10-PCS; principal; 2022-10-17)
DX: K08.89 Other specified disorders of teeth and supporting structures (principal)
CPT/HCPCS: 64400; 99284-25

== ENCOUNTER 2022-10-27 14:55 | Emergency (ER) | payer OTHER ==
[2022-10-27 15:05] VITALS: BP 108/69; PULSE 77; RESP 18; TEMP 98.2; BMI 34.4
== END 2022-10-27 16:17 | disposition home or self-care (01) ==
LOC: JER 14:55 → JERFT 14:55
DX: Z11.52 Encounter for screening for COVID-19 (principal)
CPT/HCPCS: 0241U-QW; 99283-25